=== PATIENT | male | born 1970 | race Caucasian/White ===

== ENCOUNTER 2023-03-27 05:11 | Emergency (ER) | payer OTHER ==
[2023-03-27 05:39] LABS: Absolute Lymphocytes (CBC) 1.2 K/uL (0.7-4.9); Lymphocytes % 20.1 % (15.3-44.8); MPV 8.4 fL (7.6-11.3); Platelets 104 thou/uL (152-406); RBC Red Blood Cell Count 4.61 M/uL (4.33-5.43)
[2023-03-27] MEDS ORDERED: NA CHLORIDE 0.9% 1,000 ML ONE (05:51)
[2023-03-27] MEDS ORDERED: NA CHLORIDE 0.9% 500 ML ONE (05:51)
[2023-03-27 06:05] LABS: Albumin 3.5 g/dL (3.4-5.0); Bilirubin Direct 0.3 mg/dL (0-0.2); Bilirubin Indirect, Calculated 0.6 mg/dL (0.2-0.8); Bilirubin Total 0.9 mg/dL (0.2-1.0); Potassium 3.7 mEq/L (3.5-5.1); Protein, Total 7.5 g/dL (6.4-8.2)
--- NOTE | 2023-03-27 06:15 | ER ---
Nurse's Notes [facility] Name: Howie Pedroza Age: 52 yrs Sex: Male : 1970 Arrival Date: 03/27/2023 Time: 05:11 Bed 6 Private MD: Diagnosis: Dyspnea;Pain in left lower leg;Phlebitis and thrombophlebitis of superficial vessels of left lower extremity Presentation: 03/27 05:23 Chief complaint: Patient states: SOB CONCERNED WITH PE UNDERGOING TREATMENT FOR DVT TO [facility] UPPER LEG. Coronavirus screen: Vaccine status: Patient reports receiving the 2nd dose of the covid vaccine. Ebola Screen: Patient negative for fever greater than or equal to 101.5 degrees Fahrenheit, and additional compatible Ebola Virus Disease symptoms. Initial Sepsis Screen: Does the patient meet any 2 criteria? No. Patient's initial sepsis screen is negative. Does the patient have a suspected source of infection? No. Patient's initial sepsis screen is negative. Risk Assessment: Do you want to hurt yourself or someone else? Patient reports no desire to harm self or others. Onset of symptoms was March 27, 2023 at 03:00. 05:23 Method Of Arrival: Ambulatory 05:23 Acuity: KIMBERLEY 3 kl Triage Assessment: 05:27 General: Appears in no apparent distress. Behavior is calm, cooperative. Pain: Denies kl pain. Respiratory: Reports shortness of breath on exertion Airway is patent Trachea midline Respiratory effort is even, unlabored, Onset: The symptoms/episode began/occurred this morning, the patient has mild shortness of breath. Historical: - Allergies: 05:26 Keflex; 05:26 Tramadol HCl; kl - PMHx: 05:26 HEPATITIS C; PVD; DVT; kl - PSHx: 05:26 None; kl - Immunization history:: Adult Immunizations not up to date. - Social history:: Smoking status: Patient denies any tobacco usage or history of. - Family history:: not pertinent. Screenin:37 [facility] ED Fall Risk Assessment (Adult) History of falling in the last 3 months, vc1 including since admission No falls in past 3 months (0 pts) Confusion or Disorientation No (0 pts) Intoxicated or Sedated No (0 pts) Impaired Gait Yes (1 pt) Mobility Assist Device Used No (0 pt) Altered Elimination No (0 pt) Score/Fall Risk Level 0 - 2 = Low Risk Oriented to surroundings, Maintained a safe environment, Educated pt \T\ family on fall prevention, incl call for assistance when getting out of bed. Abuse screen: Denies threats or abuse. Nutritional screening: No deficits noted. Tuberculosis screening: No symptoms or risk factors identified. Assessment: 07:55 Reassessment:. General: Appears in no apparent distress. comfortable, Behavior is calm, ld1 cooperative, appropriate for age. Pain: Denies pain. Neuro: Level of Consciousness is awake, alert, obeys commands, Oriented to person, place, time, situation. Cardiovascular: Capillary refill < 3 seconds Patient's skin is warm and dry. Rhythm is sinus rhythm. Respiratory: Airway is patent Respiratory effort is even, unlabored, Breath sounds are clear bilaterally. GI: Abdomen is flat, non-distended. : No signs and/or symptoms were reported regarding the genitourinary system. EENT: No signs and/or symptoms were reported regarding the EENT system. Derm: No signs and/or symptoms reported regarding the dermatologic system. Musculoskeletal: No signs and/or symptoms reported regarding the musculoskeletal system. Vital Signs: 05:23 BP 148 / 90; Pulse 70; Resp 20; Temp 97; Pulse Ox 97% on R/A; Weight 110.68 kg (R); Height 6 ft. 1 in. ; 06:36 BP 153 / 90; Pulse 100; Resp 13; Pulse Ox 100% ; vc1 07:55 BP 147 / 83; Pulse 96; Resp 18; Pulse Ox 100% on R/A; ld1 05:23 Body Mass Index 32.19 (110.68 kg, 185.42 cm) ED Course: 05:14 Patient arrived in ED. ag3 05:16 Arm band placed on right wrist. vc1 05:16 Patient has correct armband on for positive identification. Bed in low position. Call vc1 light in reach. Client placed on continuous cardiac and pulse oximetry monitoring. NIBP monitoring applied. 05:20 Raman Weems MD is Attending Physician. [facility] 05:26 Triage completed. 05:28 Layla Correa, RN is Primary Nurse. vc1 06:15 US Extremity Venous W Compression Grant In Process Unspecified. EDMS 06:25 CT Chest For PE Angio In Process Unspecified. EDMS 06:45 XRAY Chest (1 view) In Process Unspecified. EDMS 07:55 No provider procedures requiring assistance completed. IV discontinued, intact, ld1 bleeding controlled, No redness/swelling at site. Administered Medications: 05:45 Drug: NS 0.9% IV 500 ml Route: IV; Rate: bolus; Site: right antecubital; vc1 05:45 Drug: NS 0.9% IV 1000 ml Route: IV; Rate: 125 ml/hr; Site: right antecubital; vc1 06:36 Drug: Ibuprofen PO 400 mg Route: PO; vc1 06:47 Follow up: Response: No adverse reaction vc1 06:36 Drug: Trimethoprim-Sulfamethoxazole PO (160 mg-800 mg (DS) 1 tablet Route: PO; vc1 06:47 Follow up: Response: No adverse reaction vc1 Medication: 06:37 VIS not applicable for this client. vc1 Outcome: 06:15 Discharge ordered by MD. medina 07:55 Discharged to home ambulatory. ld1 07:55 Condition: stable 07:55 Discharge instructions given to patient, Instructed on discharge instructions, follow up and referral plans. medication usage, Demonstrated understanding of instructions, follow-up care, medications, Prescriptions given X 2. 07:56 Patient left the ED. ld1 Signatures: Dispatcher [employer] Bharati Seay RN RN kl Anderson, Corey, MD MD cha Gomez, Alice 3 Ellen Daniel RN RN ld1 Layla Correa RN RN vc1
--- NOTE | 2023-03-27 06:16 | EDPHYS ---
Physician Documentation [facility] Name: Howie Pedroza Age: 52 yrs Sex: Male : 1970 Arrival Date: 03/27/2023 Time: 05:11 Bed 6 Private MD: SHEKHAR Physician Raman Weems HPI: 03/27 05:24 This 52 yrs old Male presents to ER via Unassigned with complaints of carol Shortness Of Breath. 05:24 The patient has shortness of breath at rest, with light activity. Onset: The carol symptoms/episode began/occurred 1 day(s) ago. Duration: The symptoms are continuous, and are steadily getting worse. The patient's shortness of breath has no apparent modifying factors. Associated signs and symptoms: The patient has no apparent associated signs or symptoms. The patient has experienced similar episodes in the past. Historical: - Allergies: 05:26 Keflex; kl 05:26 Tramadol HCl; kl - PMHx: 05:26 HEPATITIS C; PVD; DVT; kl - PSHx: 05:26 None; kl - Immunization history:: Adult Immunizations not up to date. - Social history:: Smoking status: Patient denies any tobacco usage or history of. - Family history:: not pertinent. ROS: 05:24 Constitutional: Negative for fever, chills, and weight loss, Eyes: Negative for injury, carol pain, redness, and discharge, ENT: Negative for injury, pain, and discharge, Neck: Negative for injury, pain, and swelling, Cardiovascular: Negative for chest pain, palpitations, and edema, Respiratory: Negative for shortness of breath, cough, wheezing, and pleuritic chest pain, Abdomen/GI: Negative for abdominal pain, nausea, vomiting, diarrhea, and constipation, Back: Negative for injury and pain, : Negative for injury, bleeding, discharge, and swelling, Skin: Negative for injury, rash, and discoloration, Neuro: Negative for headache, weakness, numbness, tingling, and seizure, Psych: Negative for depression, anxiety, suicide ideation, homicidal ideation, and hallucinations, Allergy/Immunology: Negative for hives, rash, and allergies, Endocrine: Negative for neck swelling, polydipsia, polyuria, polyphagia, and marked weight changes, Hematologic/Lymphatic: Negative for swollen nodes, abnormal bleeding, and unusual bruising. 05:24 MS/extremity: Positive for pain, tenderness, of the left leg. Exam: 05:24 Constitutional: This is a well developed, well nourished patient who is awake, alert, carol and in no acute distress. Head/Face: Normocephalic, atraumatic. Eyes: Pupils equal round and reactive to light, extra-ocular motions intact. Lids and lashes normal. Conjunctiva and sclera are non-icteric and not injected. Cornea within normal limits. Periorbital areas with no swelling, redness, or edema. ENT: Nares patent. No nasal discharge, no septal abnormalities noted. Tympanic membranes are normal and external auditory canals are clear. Oropharynx with no redness, swelling, or masses, exudates, or evidence of obstruction, uvula midline. Mucous membranes moist. Neck: Trachea midline, no thyromegaly or masses palpated, and no cervical lymphadenopathy. Supple, full range of motion without nuchal rigidity, or vertebral point tenderness. No Meningismus. Chest/axilla: Normal chest wall appearance and motion. Nontender with no deformity. No lesions are appreciated. Cardiovascular: Regular rate and rhythm with a normal S1 and S2. No gallops, murmurs, or rubs. Normal PMI, no JVD. No pulse deficits. Respiratory: Lungs have equal breath sounds bilaterally, clear to auscultation and percussion. No rales, rhonchi or wheezes noted. No increased work of breathing, no retractions or nasal flaring. Abdomen/GI: Soft, non-tender, with normal bowel sounds. No distension or tympany. No guarding or rebound. No evidence of tenderness throughout. Back: No spinal tenderness. No costovertebral tenderness. Full range of motion. Male : Normal genitalia with no discharge or lesions. Skin: Warm, dry with normal turgor. Normal color with no rashes, no lesions, and no evidence of cellulitis. MS/ Extremity: Pulses equal, no cyanosis. Neurovascular intact. Full, normal range of motion. Neuro: Awake and alert, GCS 15, oriented to person, place, time, and situation. Cranial nerves II-XII grossly intact. Motor strength 5/5 in all extremities. Sensory grossly intact. Cerebellar exam normal. Normal gait. Psych: Awake, alert, with orientation to person, place and time. Behavior, mood, and affect are within normal limits. 06:02 ECG was reviewed by the Attending Physician. [facility] Vital Signs: 05:23 BP 148 / 90; Pulse 70; Resp 20; Temp 97; Pulse Ox 97% on R/A; Weight 110.68 kg (R); kl Height 6 ft. 1 in. ; 06:36 BP 153 / 90; Pulse 100; Resp 13; Pulse Ox 100% ; vc1 07:55 BP 147 / 83; Pulse 96; Resp 18; Pulse Ox 100% on R/A; ld1 05:23 Body Mass Index 32.19 (110.68 kg, 185.42 cm) kl MDM: 05:20 Patient medically screened. [facility] 05:25 Differential diagnosis: abrasion, tendonitis, CHF exacerbation, Chronic Obstructive carol Pulmonary Disease Myocardial Infarction pneumonia, pulmonary edema, Pulmonary Embolism reactive airway disease, Unstable Angina. Antibiotic administration: Not indicated. Immunization status: Influenza vaccine: within last 5 years. Data reviewed: vital signs, nurses notes, lab test result(s), EKG, radiologic studies, CT scan, doppler. Consideration of Admission/Observation Escalation of care including admission/observation considered. I considered the following discharge prescriptions or medication management in the emergency department Medications were administered in the Emergency Department. See MAR. Independent interpretation of the following test(s) in the Emergency Department EKG: See my EKG interpretation above. Test considered but Not performed: Ultrasound NO 2 D ECHO. 03/27 05:24 Order name: Basic Metabolic Panel; Complete Time: 06:16 carol 03/27 05:24 Order name: CBC with Diff; Complete Time: 06:16 carol 03/27 05:24 Order name: LFT's; Complete Time: 06:16 carol 03/27 05:24 Order name: Magnesium; Complete Time: 06:16 carol 03/27 05:24 Order name: NT PRO-BNP; Complete Time: 06:16 carol 03/27 05:24 Order name: Troponin HS; Complete Time: 06:16 carol 03/27 05:54 Order name: CREATININE WHOLE BLOOD; Complete Time: 06:16 EDMS 03/27 05:24 Order name: XRAY Chest (1 view); Complete Time: 07:16 carol 03/27 05:24 Order name: US Extremity Venous W Compression Grant carol 03/27 05:24 Order name: CT Chest For PE Angio; Complete Time: 07:33 [facility] 03/27 05:24 Order name: EKG; Complete Time: 05:24 [facility] 03/27 05:24 Order name: Cardiac monitoring; Complete Time: 05:45 [facility] 03/27 05:24 Order name: EKG - Nurse/Tech; Complete Time: 05:39 [facility] 03/27 05:24 Order name: IV Saline Lock; Complete Time: : [facility] 03/27 05:24 Order name: Labs collected and sent; Complete Time: [facility] 03/27 05:24 Order name: O2 Per Protocol; Complete Time: [facility] 03/27 05:24 Order name: O2 Sat Monitoring; Complete Time: [facility] EC:02 Rate is 91 beats/min. Rhythm is regular. QRS [place] is Normal. PA interval is normal. QRS carol interval is normal. QT interval is normal. No Q waves. T waves are Normal. No ST changes noted. Clinical impression: NSR w/ Non-specific ST/T Changes and No evidence of ischemia. Interpreted by me. Reviewed by me. Administered Medications: 05:45 Drug: NS 0.9% IV 500 ml Route: IV; Rate: bolus; Site: right antecubital; vc1 05:45 Drug: NS 0.9% IV 1000 ml Route: IV; Rate: 125 ml/hr; Site: right antecubital; vc1 06:36 Drug: Ibuprofen PO 400 mg Route: PO; vc1 06:47 Follow up: Response: No adverse reaction vc1 06:36 Drug: Trimethoprim-Sulfamethoxazole PO (160 mg-800 mg (DS) 1 tablet Route: PO; vc1 06:47 Follow up: Response: No adverse reaction vc1 Disposition Summary: 03/27/23 06:15 Discharge Ordered Location: Home carol Problem: new carol Symptoms: have improved carol Condition: Stable carol Diagnosis - Dyspnea carol - Pain in left lower leg carol - Phlebitis and thrombophlebitis of superficial vessels of left lower extremity carol Followup: carol - With: Private Physician - When: 2 - 3 days - Reason: Recheck today's complaints, Continuance of care, Re-evaluation by your physician Discharge Instructions: - Discharge Summary Sheet carol - Musculoskeletal Pain carol - Shortness of Breath, Adult, Ummu-ki-Prha carol - Thrombophlebitis carol Forms: - Medication Reconciliation Form carol - Thank You Letter carol - Antibiotic Education carol - Prescription Opioid Use carol - Patient Portal Instructions [facility] - Leadership Thank You Letter [facility] Prescriptions: - Motrin IB 200 mg Oral Tablet - take 1 tablet by ORAL route every 6 hours As needed as needed with food; 40 carol tablet; Refills: 0, Product Selection Permitted - Bactrim DS 800-160 mg Oral Tablet - take 1 tablet by ORAL route every 12 hours for 7 days; 14 tablet; Refills: 0, [facility] Product Selection Permitted Signatures: Dispatcher [employer] Bharati Seay, RN RN Raman Borrero MD MD cha Sims, Marcus, DO DO ms3 Layla Correa RN RN vc1
[2023-03-27] MEDS ORDERED: IBUPROFEN 400 MG TAB ONE (06:44)
[2023-03-27] MEDS ORDERED: SMZ./TMP. 800/160 MG TABLET ONE (06:44)
--- NOTE | 2023-03-27 07:10 | RAD REPORT ---
EXAM DESCRIPTION: Hong Single View03/27/2023 6:43 am CLINICAL HISTORY: Chest pain COMPARISON: 2014 FINDINGS: The lungs appear clear of acute infiltrate. The heart is normal size IMPRESSION: No acute abnormalities displayed
--- NOTE | 2023-03-27 07:20 | RAD REPORT ---
EXAM DESCRIPTION: CT - Chest For Pe Angio - 03/27/2023 6:24 am CLINICAL HISTORY: Shortness of breath COMPARISON: None. TECHNIQUE: Dynamically enhanced axial 3 mm thick images of the chest were obtained during administra tion of 75 mL Isovue 370 IV contrast. Coronal and oblique reconstruction images were generated and re viewed. Exam utilizes a protocol for optimal evaluation of pulmonary arterial tree. Maximum intensity projections 3D imaging was utilized All CT scans are performed using dose optimization technique as appropriate and may include automated exposure control or mA/KV adjustment according to patient size. FINDINGS: The suboptimal opacification pulmonary arteries. No gross central pulmonary embolus visual ized. A thoracic aortic aneurysm is not noted. A pleural effusion is not seen. A pericardial effusion is not seen. A lung consolidation is not present. Cirrhotic liver. Splenomegaly. Varices. Distended portal vein IMPRESSION: No gross central pulmonary embolus Cirrhosis
[2023-03-27 08:38] VITALS: TEMP 97
[2023-03-27 08:39] VITALS: O2SAT 100
[2023-03-27 08:40] VITALS: BP 147/83
--- NOTE | 2023-03-27 16:27 | EKG ---
Test Date: 2023-03-27 Test Time: 05:37:37 School Librarian: MAXINE MEASUREMENT RESULTS: Intervals: Rate: 91 FL: 164 QRSD: 98 QT: 360 QTc: 442 [place]: P: 70 FL: 164 QRS: 28 T: 63 INTERPRETIVE STATEMENTS: Sinus rhythm with premature atrial complexes Minimal voltage criteria for LVH, may be normal variant Borderline ECG Compared to ECG 05/17/2015 21:45:42 Atrial premature complex(es) now present Sinus tachycardia no longer present T-wave abnormality no longer present Possible ischemia no longer present Electronically Signed On 03-27-23 16:25:23 CDT by Deonte Drew
--- NOTE | 2023-03-27 16:53 | RAD REPORT ---
EXAM DESCRIPTION: US - Extrem Venous W Compress Grant - 03/27/2023 6:13 am FINDINGS: Pain, Swelling COMPARISON: US left leg vein 02/26/2023 report without images TECHNIQUE: Grayscale, color Doppler, duplex Doppler, spectral Doppler images and analysis with compr ession and augmentation of right and left lower extremity veins. FINDINGS: Right and Left common femoral, greater saphenous, femoral, deep (profunda) femoral, poplit eal, posterior tibial veins unremarkable without evidence of clot. Superficial vein thrombosis in what technologist names as a distal left thigh superficial vein and le ft calf area. IMPRESSION: 1. No sonographic evidence of right or left lower extremity DVT. 2. Superficial vein thrombosis in a distal left thigh superficial vein and left calf area. Electronically signed by: Mykel Olson MD 03/27/2023 6:48 AM CDT Due to temporary technical issues with the PACS/Fluency reporting system, reports are being signed b y the in house radiologists without review as a courtesy to insure prompt reporting. The interpreting radiologist is fully responsible for the content of the report.
== END 2023-03-27 07:56 | disposition home or self-care (01) ==
LOC: ER 05:11
DX: R06.00 Dyspnea, unspecified (principal); I80.02 Phlebitis and thrombophlebitis of superficial vessels of left lower extremity; M79.662 Pain in left lower leg; Z88.1 Allergy status to other antibiotic agents; Z88.5 Allergy status to narcotic agent
CPT/HCPCS: 93005; 85025; 80048; 36415; 83735; 82565; 80076; 84484; 83880; 71275; 71045; 93970; 99284; Q9967; J7040; J7030

== ENCOUNTER 2023-06-10 20:48 | Emergency (ER) | payer OTHER ==
[2023-06-10] MEDS ORDERED: MORPHINE 4 MG/ML SYR ONE (21:55)
[2023-06-10] MEDS ORDERED: ONDANSETRON 4 MG (ODT) TAB ONE (21:56)
--- NOTE | 2023-06-10 22:37 | RAD REPORT ---
EXAM DESCRIPTION: USExtrem Venous W Compress Bil06/10/2023 10:07 pm CLINICAL HISTORY: Leg pain COMPARISON: February 2023 FINDINGS: The common femoral, superficial femoral,popliteal and posterior tibial veins bilaterally a re compressible and demonstrate augmentation. Right greater saphenous vein patent Doppler demonstrates good flow. Echogenic material consistent with late subacute thrombus is present within the mid and distal left g reater saphenous vein Grayscale, color and spectral analysis performed on all vessels IMPRESSION: No evidence of deep venous thrombosis involving either lower extremity. Late subacute thrombus mid and distal left greater saphenous vein
--- NOTE | 2023-06-10 22:52 | ER ---
Nurse's Notes [facility] Name: Howie Pedroza Age: 53 yrs Sex: Male : 1970 Arrival Date: 06/10/2023 Time: 20:48 Bed 13 Private MD: Diagnosis: subacute thrombus mid and distal left greater saphenous vein Presentation: 06/10 21:22 Chief complaint: Patient states: increase in pain and swelling to left lower extremity kl pt reports has numerous clots in left leg was scheduled for procedure to remove stopped Eliquis x 2 days prior reports pain is not being relieved with Tylenol 3 has appt with pain management on 06/13. Coronavirus screen: Vaccine status: Patient reports receiving the 2nd dose of the covid vaccine. Ebola Screen: Patient negative for fever greater than or equal to 101.5 degrees Fahrenheit, and additional compatible Ebola Virus Disease symptoms. Initial Sepsis Screen: Does the patient meet any 2 criteria? No. Patient's initial sepsis screen is negative. Does the patient have a suspected source of infection? No. Patient's initial sepsis screen is negative. Risk Assessment: Do you want to hurt yourself or someone else? Patient reports no desire to harm self or others. Onset of symptoms was June 10, 2023. 21:22 Method Of Arrival: Ambulatory kl 21:22 Acuity: KIMBERLEY 3 kl Triage Assessment: 21:27 General: Appears uncomfortable, Behavior is cooperative. Pain: Complains of pain in kl left leg Pain currently is 10 out of 10 on a pain scale. Musculoskeletal: Circulation, motion, and sensation intact. Capillary refill < 3 seconds, Swelling present in left leg. Historical: - Allergies: 21:25 Keflex; kl 21:25 Tramadol HCl; kl 21:25 Bactrim; kl - Home Meds: 21:25 Lasix Oral [Active]; propranolol-hydrochlorothiazide oral [Active]; Lactulose Oral kl [Active]; Potassium Chloride Oral [Active]; Tylenol #3 Oral [Active]; - PMHx: 21:25 DVT; Hepatitis C; PVD; liver cirrhosis (PVD); kl - Immunization history:: Adult Immunizations up to date. - Social history:: Smoking status: Patient/guardian denies using tobacco, but has a distant history of tobacco abuse. Screenin:02 [facility] ED Fall Risk Assessment (Adult) History of falling in the last 3 months, kl including since admission No falls in past 3 months (0 pts) Confusion or Disorientation No (0 pts) Intoxicated or Sedated No (0 pts) Impaired Gait No (0 pts) Mobility Assist Device Used No (0 pt) Altered Elimination No (0 pt) Score/Fall Risk Level 0 - 2 = Low Risk Oriented to surroundings, Maintained a safe environment. Abuse screen: Denies threats or abuse. Nutritional screening: No deficits noted. Tuberculosis screening: No symptoms or risk factors identified. Assessment: 23:02 Reassessment: Patient appears in no apparent distress at this time. Patient is alert, kl oriented x 3, equal unlabored respirations, skin warm/dry/pink. Patient states feeling better. Patient states symptoms have improved. Vital Signs: 21:22 BP 140 / 73; Pulse 76; Resp 20; Temp 98.3(O); Pulse Ox 100% on R/A; Weight 113.85 kg kl (R); Height 6 ft. 1 in. ; Pain 10/10; 23:02 BP 138 / 67; Pulse 71; Resp 18; Pulse Ox 97% ; kl 21:22 Body Mass Index 33.12 (113.85 kg, 185.42 cm) kl 21:22 Pain Scale: Adult ED Course: 20:51 Patient arrived in ED. jj6 20:55 Cecile Pugh PA-C is PHCP. sb4 20:55 Mallory Hernandez MD is Attending Physician. sb4 21:25 Triage completed. kl 22:09 Extrem Venous W Compression Grant US In Process Unspecified. EDMS 23:03 Patient has correct armband on for positive identification. Call light in reach. kl 23:03 No provider procedures requiring assistance completed. Patient did not have IV access kl during this emergency room visit. Administered Medications: 21:46 Drug: morphine IM 4 mg IM once Route: IM; Site: right deltoid; kl 23:02 Follow up: Response: Marked relief of symptoms kl 21:46 Drug: Ondansetron Oral Disintegrating Tablet Oral Disintegrating Tablet 4 mg PO once kl Route: PO; 23:02 Follow up: Response: Marked relief of symptoms kl Outcome: 22:52 Discharge ordered by . sb4 23:03 Discharged to home via ambulance, kl 23:03 Condition: improved 23:03 Discharge instructions given to patient, Instructed on discharge instructions, follow up and referral plans. Demonstrated understanding of instructions, follow-up care, 23:03 Patient left the ED. kl Signatures: Dispatcher [employer] Bharati Seay RN RN kl Jeffries, Jennifer jj6 Brown, Sophia, PA-C PACruz sb4
--- NOTE | 2023-06-10 22:52 | EDPHYS ---
Physician Documentation [facility] Name: Howie Pedroza Age: 53 yrs Sex: Male : 1970 Arrival Date: 06/10/2023 Time: 20:48 Bed 13 Private MD: ED Physician Mallory Hernandez HPI: 06/10 21:31 This 53 yrs old Male presents to ER via Ambulatory with complaints of Swelling of Lower sb4 Extremity. 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 He is on daily sb4 Eliquis, however he stopped his Eliquis 2 days ago because he was post to have an EGD tomorrow. He states that over the weekend, he has had increasing pain in his left leg. He is prescribed Tylenol with codeine that has not been controlling the pain adequately. He denies any chest pain or shortness of breath. Historical: - Allergies: 21:25 Keflex; kl 21:25 Tramadol HCl; kl 21:25 Bactrim; kl - Home Meds: 21:25 Lasix Oral [Active]; propranolol-hydrochlorothiazide oral [Active]; Lactulose Oral kl [Active]; Potassium Chloride Oral [Active]; Tylenol #3 Oral [Active]; - PMHx: 21:25 DVT; Hepatitis C; PVD; liver cirrhosis (PVD); kl - Immunization history:: Adult Immunizations up to date. - Social history:: Smoking status: Patient/guardian denies using tobacco, but has a distant history of tobacco abuse. ROS: 21:34 Constitutional: Negative for fever, chills, and weight loss, sb4 21:34 MS/extremity: Positive for pain, tenderness, of the left leg, 21:34 All other systems are negative, Exam: 21:34 Constitutional: This is a well developed, well nourished patient who is awake, alert, sb4 and in no acute distress. Head/Face: Normocephalic, atraumatic. Eyes: Extra-ocular motions intact. Periorbital areas with no swelling, redness, or edema. ENT: Mucous membranes moist. Cardiovascular: Regular rate and rhythm with a normal S1 and S2. Respiratory: Lungs have equal breath sounds bilaterally, clear to auscultation and percussion. No rales, rhonchi or wheezes noted. No increased work of breathing, no retractions or nasal flaring. Abdomen/GI: Soft, non-tender, no distension. MS/ Extremity: Pulses equal, no cyanosis. Neurovascular intact. Full, normal range of motion. Neuro: Awake and alert, GCS 15, oriented to person, place, time, and situation. Motor strength 5/5 in all extremities. Sensory grossly intact. 21:34 Skin: swelling bilateral lower extremities, bruising noted to left upper medial thigh. Vital Signs: 21:22 BP 140 / 73; Pulse 76; Resp 20; Temp 98.3(O); Pulse Ox 100% on R/A; Weight 113.85 kg kl (R); Height 6 ft. 1 in. ; Pain 10/10; 23:02 BP 138 / 67; Pulse 71; Resp 18; Pulse Ox 97% ; kl 21:22 Body Mass Index 33.12 (113.85 kg, 185.42 cm) kl 21:22 Pain Scale: Adult kl MDM: 21:08 Patient medically screened. sb4 21:34 Differential diagnosis: DVT, thrombophlebitis, contusion, hematoma. sb4 22:50 Data reviewed: vital signs, nurses notes, radiologic studies, I have discussed the sb4 patient's presentation/case with the attending Emergency Department Physician; and as a result, I will discharge patient. Care significantly affected by the following chronic conditions: Liver Disease. Counseling: I had a detailed discussion with the patient and/or guardian regarding the historical points, exam findings, and any diagnostic results supporting the discharge/admit diagnosis, radiology results, to return to the emergency department if symptoms worsen or persist or if there are any questions or concerns that arise at home. 22:52 ED course: Ultrasound today consistent with prior ultrasounds, no DVT noted. Instructed sb4 patient to restart his Eliquis and discussed all findings with his GI and vascular specialist. Patient understands. Return precautions given. 06/10 21:30 Order name: Extrem Venous W Compression Grant US; Complete Time: 22:39 sb4 Administered Medications: 21:46 Drug: morphine IM 4 mg IM once Route: IM; Site: right deltoid; kl 23:02 Follow up: Response: Marked relief of symptoms 21:46 Drug: Ondansetron Oral Disintegrating Tablet Oral Disintegrating Tablet 4 mg PO once kl Route: PO; 23:02 Follow up: Response: Marked relief of symptoms kl Disposition Summary: 06/10/23 22:52 Discharge Ordered Notes: Location: Home sb4 Problem: new sb4 Symptoms: have improved sb4 Condition: Stable sb4 Diagnosis - subacute thrombus mid and distal left greater saphenous vein sb4 Followup: sb4 - With: Emergency Department - When: As needed - Reason: Trouble breathing, Worsening of condition Discharge Instructions: - Discharge Summary Sheet sb4 - Deep Vein Thrombosis sb4 Forms: - Medication Reconciliation Form sb4 - Thank You Letter sb4 - Antibiotic Education sb4 - Prescription Opioid Use sb4 - Patient Portal Instructions sb4 - Leadership Thank You Letter sb4 Signatures: Dispatcher [employer] Bharati Seay RN RN Cecile Tracy PA-C PA-C sb4
[2023-06-10 23:10] VITALS: TEMP 98.3
[2023-06-10 23:11] VITALS: BP 138/67; O2SAT 97
== END 2023-06-10 23:03 | disposition home or self-care (01) ==
LOC: ER 20:48
DX: I82.812 Embolism and thrombosis of superficial veins of left lower extremity (principal); Z86.718 Personal history of other venous thrombosis and embolism; Z79.01 Long term (current) use of anticoagulants; Z88.1 Allergy status to other antibiotic agents; Z88.5 Allergy status to narcotic agent
CPT/HCPCS: 93970; 96372; 99284; Q0162

== ENCOUNTER 2023-07-05 22:14 | Emergency (ER) | payer OTHER ==
[2023-07-05] MEDS ORDERED: MORPHINE 4 MG/ML SYR ONE (23:40)
[2023-07-06] LABS: Protime INR 1.56
[2023-07-06 00:02] LABS: Absolute Lymphocytes (CBC) 1.2 K/uL (0.7-4.9); Hematocrit 38.3 % (39.6-49.0); Lymphocytes % 23.4 % (15.3-44.8); MCV 94.1 fL (80-100); MPV 8.1 fL (7.6-11.3); Platelets 118 thou/uL (152-406); RBC Red Blood Cell Count 4.07 M/uL (4.33-5.43)
[2023-07-06 00:20] LABS: Magnesium 2.2 mg/dL (1.6-2.4); Potassium 4.2 mEq/L (3.5-5.1)
--- NOTE | 2023-07-06 01:36 | ER ---
Nurse's Notes [facility] Name: Howie Pedroza Age: 53 yrs Sex: Male : 1970 Arrival Date: 07/05/2023 Time: 22:14 Bed 7 Private MD: Diagnosis: Embolism and thrombosis of superficial veins of left lower extremities Presentation: 07/05 22:20 Chief complaint: Patient states: "I have a blood clot in my left leg and it hasn't got as6 away. It's getting worse" pt reports having this clot for 6 months. Coronavirus screen: At this time, the client does not indicate any symptoms associated with coronavirus-19. Ebola Screen: No symptoms or risks identified at this time. Initial Sepsis Screen: Does the patient meet any 2 criteria? No. Patient's initial sepsis screen is negative. Does the patient have a suspected source of infection? No. Patient's initial sepsis screen is negative. Risk Assessment: Do you want to hurt yourself or someone else? Patient reports no desire to harm self or others. Onset of symptoms was July 05, 2023. 22:20 Method Of Arrival: Ambulatory as6 22:20 Acuity: KIMBERLEY 3 as6 Historical: - Allergies: 22:23 Bactrim; as6 22:23 Keflex; as6 22:23 Tramadol HCl; as6 - PMHx: 22:23 DVT; Hepatitis C; Liver cirrhosis (PVD); PVD; as6 - PSHx: 22:23 back; as6 - Immunization history:: Adult Immunizations not up to date. - Social history:: Smoking status: Patient denies any tobacco usage or history of. Screenin/08 00:44 [facility] ED Fall Risk Assessment (Adult) History of falling in the last 3 months, rv including since admission No falls in past 3 months (0 pts) Score/Fall Risk Level 0 - 2 = Low Risk Oriented to surroundings, Maintained a safe environment, Educated pt \\T\\ family on fall prevention, incl call for assistance when getting out of bed. Abuse screen: Denies threats or abuse. Denies injuries from another. Nutritional screening: No deficits noted. Tuberculosis screening: No symptoms or risk factors identified. Assessment: 07/05 23:30 General: Appears in no apparent distress. Behavior is calm, cooperative. rv 23:30 Pain: Complains of pain in right leg and left leg. Neuro: Level of Consciousness is rv awake, alert, obeys commands, Oriented to person, place, time, situation. Cardiovascular: Capillary refill < 3 seconds Patient's skin is warm and dry. Respiratory: Airway is patent. GI: No signs and/or symptoms were reported involving the gastrointestinal system. : No signs and/or symptoms were reported regarding the genitourinary system. Musculoskeletal: Circulation, motion, and sensation intact. Range of motion: intact in all extremities. 07/06 01:21 Reassessment: No changes from previously documented assessment. Patient and/or family vc1 updated on plan of care and expected duration. Pain level reassessed. Patient is alert, oriented x 3, equal unlabored respirations, skin warm/dry/pink. Vital Signs: 07/05 22:20 BP 160 / 83; Pulse 76; Resp 20 S; Temp 98.7(TE); Pulse Ox 98% on R/A; Weight 115.67 kg as6 (R); Height 6 ft. 1 in. (R); Pain 10/10; 07/06 00:41 BP 137 / 72; Pulse 70; Resp 17; Pulse Ox 99% ; rv 01:21 BP 141 / 69; Pulse 73; Resp 15; Pulse Ox 100% ; vc1 01:51 BP 135 / 73; Pulse 69; Resp 16; Temp 98; Pulse Ox 99% ; rv 07/05 22:20 Body Mass Index 33.64 (115.67 kg, 185.42 cm) as6 07/05 22:20 Pain Scale: Adult as6 [place] Coma Score: 00:41 Eye Response: spontaneous(4). Motor Response: obeys commands(6). Verbal Response: rv oriented(5). Total: 15. 01:52 Eye Response: spontaneous(4). Motor Response: obeys commands(6). Verbal Response: rv oriented(5). Total: 15. ED Course: 07/05 22:19 Patient arrived in ED. jj6 22:23 Triage completed. as6 22:24 Arm band placed on. as6 22:32 Raman Hawley PA is PHCP. cp 22:32 Raman Weems MD is Attending Physician. cp 22:52 Layla Correa RN is Primary Nurse. vc1 22:58 XRAY Chest (1 view) In Process Unspecified. EDMS 23:22 Inserted saline lock: 20 gauge in right forearm, using aseptic technique. Blood rv collected. 12 00:15 US Extremity Venous W Compression Grant In Process Unspecified. EDMS 00:44 Patient has correct armband on for positive identification. Client placed on continuous rv cardiac and pulse oximetry monitoring. NIBP monitoring applied. quality assurance monitor chassis on. 00:44 No provider procedures requiring assistance completed. rv 01:52 IV discontinued, intact, bleeding controlled, No redness/swelling at site. Pressure rv dressing applied. Administered Medications: 07/05 23:32 Drug: morphine IVP or IV 4 mg IVP once over 4 mins Route: IVP; Infused Over: 4 mins; rv Site: right forearm; 07/06 01:51 Follow up: Response: No adverse reaction rv 01:51 Not Given (Duplicate Order): hydrocodone-[id number] mg-325 mg 1 tabs PO once rv 01:51 Drug: HYDROcodone-acetaminophen PO 5 mg-325 mg 2 tabs PO once Route: PO; rv 01:51 Follow up: Response: Medication administered at discharge. rv Medication: 00:44 VIS not applicable for this client. rv Outcome: 01:35 Discharge ordered by MD. cp 01:52 Discharged to home ambulatory, with family, rv 01:52 Condition: good 01:52 Discharge instructions given to patient, Instructed on discharge instructions, follow up and referral plans. medication usage, Demonstrated understanding of instructions, follow-up care, medications, Prescriptions given X 1, 01:52 Patient left the ED. rv Signatures: Dispatcher [employer] EDMS Raman Hawley PA PA cp Vicente, Ronaldo, RN RN rv Shi Portillo Ashby, RN RN as6 Layla Correa RN RN vc1 Corrections: (The following items were deleted from the chart) 00:40 00:39 General: Appears rv rv
--- NOTE | 2023-07-06 01:36 | EDPHYS ---
Physician Documentation [facility] Name: Howie Pedroza Age: 53 yrs Sex: Male : 1970 Arrival Date: 07/05/2023 Time: 22:14 Bed 7 Private MD: ED Physician Raman Weems HPI: 07/05 23:00 This 53 yrs old Male presents to ER via Ambulatory with complaints of Leg Pain. cp 23:00 The patient presents with pain, that is chronic. The complaints affect the medial cp aspect of left thigh. Context: Patient reports history of chronic blood clot to left leg. Associated signs and symptoms: Pertinent negatives calf tenderness, fever, warmth. Treatment prior to arrival includes: no previous treatment. Severity of symptoms: in the emergency department the symptoms are unchanged, despite home interventions. 23:00 Onset: The symptoms/episode began/occurred 6 month(s) ago. cp Historical: - Allergies: 22:23 Bactrim; as6 22:23 Keflex; as6 22:23 Tramadol HCl; as6 - PMHx: 22:23 DVT; Hepatitis C; Liver cirrhosis (PVD); PVD; as6 - PSHx: 22:23 back; as6 - Immunization history:: Adult Immunizations not up to date. - Social history:: Smoking status: Patient denies any tobacco usage or history of. ROS: 23:05 MS/extremity: Positive for pain, of the medial aspect of left thigh, Negative for cp injury or acute deformity, decreased range of motion, paresthesias, 23:05 Eyes: Negative for injury, pain, redness, and discharge, cp 23:05 Constitutional: Negative for body aches, chills, fever, poor PO intake, 23:05 Cardiovascular: Negative for chest pain, edema, palpitations, 23:05 Respiratory: Negative for cough, shortness of breath, wheezing, 23:05 Abdomen/GI: Negative for abdominal pain, nausea, vomiting, and diarrhea, 23:05 Neuro: Negative for altered mental status, dizziness, headache, weakness, 23:05 All other systems are negative, Exam: 23:10 Constitutional: The patient appears in no acute distress, alert, awake, cp non-diaphoretic, non-toxic, well developed, well nourished, 23:10 Head/Face: Normocephalic, atraumatic. cp 23:10 Eyes: Periorbital structures: appear normal, Conjunctiva: normal, no exudate, no injection, Sclera: no appreciated abnormality, Lids and lashes: appear normal, bilaterally, 23:10 ENT: External ear(s): are unremarkable, Nose: is normal, Mouth: Lips: moist, Oral mucosa: pink and intact, moist, Posterior pharynx: is normal, airway is patent, no erythema, 23:10 Chest/axilla: Inspection: normal, 23:10 Cardiovascular: Rate: normal, Rhythm: regular, Edema: is not appreciated, JVD: is not appreciated, 23:10 Respiratory: the patient does not display signs of respiratory distress, Respirations: normal, no use of accessory muscles, no retractions, labored breathing, is not present, Breath sounds: are clear throughout, no decreased breath sounds, no stridor, no wheezing, 23:10 Abdomen/GI: Inspection: abdomen appears normal, Palpation: abdomen is soft and non-tender, in all quadrants, 23:10 Back: pain, is absent, ROM is normal, 23:10 Musculoskeletal/extremity: Extremities: grossly normal except: noted in the medial aspect of left thigh: pain, tenderness, 23:10 Skin: cellulitis, is not appreciated, no rash present. 23:10 Neuro: Motor: moves all fours, strength is normal, Sensation: no obvious gross deficits, 23:25 ECG was reviewed by the Attending Physician. cp Vital Signs: 22:20 BP 160 / 83; Pulse 76; Resp 20 S; Temp 98.7(TE); Pulse Ox 98% on R/A; Weight 115.67 kg as6 (R); Height 6 ft. 1 in. (R); Pain 05/08; 1208 00:41 BP 137 / 72; Pulse 70; Resp 17; Pulse Ox 99% ; rv 01:21 BP 141 / 69; Pulse 73; Resp 15; Pulse Ox 100% ; vc1 01:51 BP 135 / 73; Pulse 69; Resp 16; Temp 98; Pulse Ox 99% ; rv 12/07 22:20 Body Mass Index 33.64 (115.67 kg, 185.42 cm) as6 12 22:20 Pain Scale: Adult as6 [place] Coma Score: 00:41 Eye Response: spontaneous(4). Motor Response: obeys commands(6). Verbal Response: rv oriented(5). Total: 15. 01:52 Eye Response: spontaneous(4). Motor Response: obeys commands(6). Verbal Response: rv oriented(5). Total: 15. MDM: 12 22:33 Patient medically screened. 07/06 01:35 Data reviewed: vital signs, nurses notes, lab test result(s), EKG, radiologic studies, cp plain films, ultrasound. 01:35 Differential diagnosis: cellulitis, abscess. I considered the following discharge cp prescriptions or medication management in the emergency department Medications were administered in the Emergency Department. See MAR. Independent interpretation of the following test(s) in the Emergency Department EKG: See my EKG interpretation above. Counseling: I had a detailed discussion with the patient and/or guardian regarding the historical points, exam findings, and any diagnostic results supporting the discharge/admit diagnosis, lab results, radiology results, the need for outpatient follow up, a family practitioner. Response to treatment: the patient's symptoms have markedly improved after treatment, and as a result, I will discharge patient. 07/05 22:47 Order name: Basic Metabolic Panel; Complete Time: 01:08 07/06 01:08 Interpretation: Normal except: CL 110; BUN 19. 07/05 22:47 Order name: CBC with Diff; Complete Time: 01:08 07/06 01:08 Interpretation: Normal except: RBC 4.07; HGB 13.0; HCT 38.3; PLT 118; EOSINOPHIL % 7.6. 07/05 22:47 Order name: Magnesium; Complete Time: 01:08 07/05 22:47 Order name: PT-INR; Complete Time: 01:08 cp 07/06 01:08 Interpretation: Reviewed. 07/05 22:47 Order name: Troponin HS; Complete Time: 01:08 07/05 22:47 Order name: XRAY Chest (1 view) 07/05 23:35 Order name: US Extremity Venous W Compression Grant 07/05 22:47 Order name: EKG; Complete Time: 22:48 07/05 22:47 Order name: Cardiac monitoring; Complete Time: 23:21 07/05 22:47 Order name: EKG - Nurse/Tech; Complete Time: 23:21 07/05 22:47 Order name: IV Saline Lock; Complete Time: 23:21 cp 07/05 22:47 Order name: Labs collected and sent; Complete Time: 23:21 cp 07/05 22:47 Order name: O2 Per Protocol; Complete Time: 23:21 cp 07/05 22:47 Order name: O2 Sat Monitoring; Complete Time: 23:21 cp EC/07 23:25 Rate is 70 beats/min. Rhythm is regular. AL interval is normal. QRS interval is cp prolonged at 106 msec. QT interval is normal. T waves are Inverted in lead aVR. Interpreted by me. Reviewed by me. Administered Medications: 23:32 Drug: morphine IVP or IV 4 mg IVP once over 4 mins Route: IVP; Infused Over: 4 mins; rv Site: right forearm; 07/06 01:51 Follow up: Response: No adverse reaction rv 01:51 Not Given (Duplicate Order): hydrocodone-onbfsmjqprxbi77 mg-325 mg 1 tabs PO once rv 01:51 Drug: HYDROcodone-acetaminophen PO 5 mg-325 mg 2 tabs PO once Route: PO; rv 01:51 Follow up: Response: Medication administered at discharge. rv Disposition Summary: 07/06/23 01:35 Discharge Ordered Notes: Location: Home cp Problem: an ongoing problem cp Symptoms: have improved cp Condition: Stable cp Diagnosis - Embolism and thrombosis of superficial veins of left lower extremities cp Followup: cp - With: Private Physician - When: 2 - 3 days - Reason: Recheck today's complaints Discharge Instructions: - Discharge Summary Sheet cp - Venous Thromboembolism Prevention cp Forms: - Medication Reconciliation Form cp - Thank You Letter cp - Antibiotic Education cp - Prescription Opioid Use cp - Patient Portal Instructions cp - Leadership Thank You Letter cp Prescriptions: - acetaminophen-codeine 300-30 mg Oral tablet - take 2 tablet ORAL route every 8 hours; 14 tablet; Refills: 0, Product cp Selection Permitted Signatures: Dispatcher [employer] Raman Shah PA PA cp Blake Nelson, RN RN rv Paul Cohn RN RN as6
[2023-07-06] MEDS ORDERED: HYDROCODONE/APAP 5/325 MG TAB ONE (01:54)
[2023-07-06 02:02] VITALS: BP 135/73; TEMP 98; O2SAT 99
--- NOTE | 2023-07-06 20:31 | RAD REPORT ---
EXAM DESCRIPTION: RAD - Chest Single View - 07/05/2023 10:57 pm CLINICAL HISTORY: leg swelling TECHNIQUE: Single view chest COMPARISON: None FINDINGS: The heart appears unremarkable. The lungs are clear there is no alveolar consolidation, ef fusion or pneumothorax. There are no acute bony or soft tissue abnormalities. IMPRESSION: No acute cardiopulmonary process. Electronically signed by: Venancio Marinelli MD 07/05/2023 11:11 PM MARINE RESOURCE ECONOMIST Due to temporary technical issues with the PACS/Fluency reporting system, reports are being signed by the in house radiologists without review as a courtesy to insure prompt reporting. The interpreting radiologist is fully responsible for the content of the report.
--- NOTE | 2023-07-06 20:56 | RAD REPORT ---
EXAM DESCRIPTION: US - Extrem Venous W Compress Grant - 07/06/2023 12:13 am CLINICAL HISTORY: The patient is 53 years old and is Male; PAIN Bed Name: 7 TECHNIQUE: Real-time duplex ultrasound scan of the bilateral lower extremity veins integrating B-mod e two-dimensional vascular structure, Doppler spectral analysis, color flow Doppler imaging and compr ession. COMPARISON: 03/27/2023 bilateral lower extremity venous ultrasound FINDINGS: RIGHT DEEP VEINS: Unremarkable. No DVT in the right common femoral, femoral, proximal deep femoral or popliteal veins. The veins demonstrate normal color flow, are normally compressible , with normal phasic flow and/or augmentation response. RIGHT SUPERFICIAL VEINS: Unremarkable. No thrombus in the visualized right great saphenous vein. LEFT DEEP VEINS: Unremarkable. No DVT in the left common femoral, femoral, proximal deep femoral or popliteal veins. The veins demonstrate normal color flow, are normally compressible, with normal phasic flow and/or augmentation response. LEFT SUPERFICIAL VEINS: Superficial venous thrombus noted in the left greater saphenous vein about the level of the calf, which appears unchanged from prior exam. IMPRESSION: Superficial venous thrombus noted in the left greater saphenous vein about the level of the calf, which appears unchanged from prior exam. No new venous thrombus or deep venous thrombosis identified in either lower extremity. Electronically signed by: Fabiano Krueger MD 07/06/2023 12:32 AM STAFF COMBAT INFORMATION CENTER OFFICER Due to temporary technical issues with the PACS/Fluency reporting system, reports are being signed by the in house radiologists without review as a courtesy to insure prompt reporting. The interpreting radiologist is fully responsible for the content of the report.
--- NOTE | 2023-07-10 14:00 | EKG ---
Test Date: 2023-07-05 Test Time: 23:18:11 Casing Crew: KAUSHIK MEASUREMENT RESULTS: Intervals: Rate: 70 IA: 174 QRSD: 106 QT: 432 QTc: 466 Wana: P: 46 IA: 174 QRS: 81 T: 37 INTERPRETIVE STATEMENTS: Normal sinus rhythm Normal ECG Compared to ECG 03/27/2023 05:37:37 Atrial premature complex(es) no longer present Left ventricular hypertrophy no longer present Electronically Signed On 07-10-23 13:44:29 MARKETING STRATEGIST by Deonte Drew
== END 2023-07-06 01:52 | disposition home or self-care (01) ==
LOC: ER 22:14
DX: I82.812 Embolism and thrombosis of superficial veins of left lower extremity (principal); Z86.718 Personal history of other venous thrombosis and embolism; Z88.1 Allergy status to other antibiotic agents; Z88.5 Allergy status to narcotic agent
CPT/HCPCS: 36415; 71045; 80048; 83735; 84484; 85025; 85610; 93005; 93970; 96374; 99285

== ENCOUNTER → 2023-10-22 | Emergency (ER) | payer OTHER ==
--- NOTE | 2023-10-22 11:16 | RAD REPORT ---
EXAM DESCRIPTION: US - Extrem Venous W Compress Grant - 10/22/2023 11:05 am CLINICAL HISTORY: PAIN Bilateral leg edema and swelling. COMPARISON: Extrem Venous W Compress Grant dated 07/05/2023 TECHNIQUE: Real-time sonographic interrogation of the left and right lower extremity deep venous sys tems was performed. FINDINGS: Normal compressibility, flow augmentation, phasic flow and spontaneous flow is identified in both the left and right lower extremity deep venous systems. Distal greater saphenous vein on the left shows a small area of thrombus. Varicose veins are noted at the site of right thigh redness. IMPRESSION: No sonographic evidence of left or right lower extremity deep venous thrombosis.
--- NOTE | 2023-10-22 12:32 | EDPHYS ---
Physician Documentation [facility] Name: Howie Pedroza Age: 53 yrs Sex: Male : 1970 Arrival Date: 10/22/2023 Time: 10:29 Bed 20 Private MD: ED Physician Zen Daniel HPI: 10/21 11:24 This 53 yrs old Male presents to ER via Ambulatory with complaints of Leg Pain. kb 11:24 Patient is a 53-year-old male who presents for pain redness and swelling to right kb medial thigh that started yesterday. Patient is concerned for a blood clot because he has a history of clots in the left leg. States he had a mild cough with fever 2 days ago as well.. Historical: - Allergies: 10:38 Bactrim; mb9 10:38 Keflex; mb9 10:38 Tramadol HCl; mb9 - PMHx: 10:38 DVT; PVD; Liver cirrhosis (PVD); Hepatitis C; mb9 - PSHx: 10:38 back; mb9 - Immunization history:: Adult Immunizations up to date. - Social history:: Smoking status: Patient denies any tobacco usage or history of. ROS: 11:19 Constitutional: As per HPI kb Exam: 11:19 Constitutional: This is a well developed, well nourished patient who is awake, alert, kb and in no acute distress. Head/Face: Normocephalic, atraumatic. ENT: Moist Mucous membranes Cardiovascular: Regular rate Respiratory: Respirations even and unlabored. No increased work of breathing. Talking in full sentences Abdomen/GI: Soft, non-tender. No distention MS/ Extremity: Pulses equal, no cyanosis. Neurovascular intact. Full, normal range of motion. Neuro: Awake and alert, GCS 15, oriented to person, place, time, and situation. Moves all extremities. Normal gait. 11:19 Skin: cellulitis, that is moderate, on the medial aspect of right thigh, Vital Signs: 10:38 BP 128 / 56; Pulse 75; Resp 18; Temp 98.6(O); Pulse Ox 98% on R/A; Weight 117.93 kg; mb9 Height 6 ft. 1 in. ; Pain 8/10; 12:00 BP 114 / 61; Pulse 65; Resp 18; Pulse Ox 96% on R/A; db 10:38 Body Mass Index 34.30 (117.93 kg, 185.42 cm) mb9 10:38 Pain Scale: Adult mb9 MDM: 10:35 Patient medically screened. kb 11:20 Differential diagnosis: cellulitis, dvt. Data reviewed: vital signs, nurses notes. kb Consideration of Admission/Observation Escalation of care including admission/observation considered. admission considered for cellulitis, but pt is nontoxic in appearance, afebrile, and vital signs wnl. Pt given return precautions. . Test considered but Not performed: Labs: cbc, cmp, lactate and blood cultures considered, but pt is nontoxic in appearance, vital signs wnl, and afebrile. . Counseling: I had a detailed discussion with the patient and/or guardian regarding the historical points, exam findings, and any diagnostic results supporting the discharge/admit diagnosis, radiology results, the need for outpatient follow up, a family practitioner, to return to the emergency department if symptoms worsen or persist or if there are any questions or concerns that arise at home. 10/21 10:39 Order name: Flu; Complete Time: 12:30 kb 10/21 11:06 Order name: Extrem Venous W Compress Grant; Complete Time: 11:18 EDMS Administered Medications: 12:37 Drug: Clindamycin PO 300 mg PO once Route: PO; db 12:39 Follow up: Response: No adverse reaction mb9 Disposition: 11:56 I was immediately available on-site in the Emergency Department for consultation in the ms3 care of the patient. Disposition Summary: 10/22/23 12:31 Discharge Ordered Notes: Location: Home kb Condition: Stable kb Diagnosis - Cellulitis of right lower limb kb Followup: kb - With: Emergency Department - When: As needed - Reason: Worsening of condition Followup: kb - With: Private Physician - When: 2 - 3 days - Reason: Recheck today's complaints, Continuance of care, Re-evaluation by your physician Discharge Instructions: - Discharge Summary Sheet kb - Cellulitis, Adult, [id number] kb Forms: - Medication Reconciliation Form kb - Thank You Letter kb - Antibiotic Education kb - Prescription Opioid Use kb - Patient Portal Instructions kb - Leadership Thank You Letter kb Prescriptions: - Clindamycin HCl 300 mg Oral Capsule - take 1 capsule ORAL route every 6 hours for 10 days; 40 capsule; Refills: 0, kb Product Selection Permitted Signatures: Dispatcher [employer] EDMS Coby Adams, STORE DIRECTOR-C STORE DIRECTOR-Ckb Zen Daniel, DO ms3 Cecilia Hines, RN RN db Karen Abdullahi RN RN mb9 Corrections: (The following items were deleted from the chart) 11:06 10:40 Extremity Venous Uni [email or web address] ordered. EDMS EDMS
--- NOTE | 2023-10-22 12:32 | ER ---
Nurse's Notes [facility] Name: Howie Pedroza Age: 53 yrs Sex: Male : 1970 Arrival Date: 10/22/2023 Time: 10:29 Bed 20 Private MD: Diagnosis: Cellulitis of right lower limb Presentation: 10/21 10:36 Chief complaint: Patient states: "I feel like a have a blood clot on my right upper mb9 leg. It's red, aching, and swollen that started yesterday. Sunday, I had a fever, SOB, and cough.". Coronavirus screen:. Coronavirus screen: Vaccine status: Patient reports receiving the 2nd dose of the covid vaccine. Ebola Screen: No symptoms or risks identified at this time. Initial Sepsis Screen: Does the patient meet any 2 criteria? No. Patient's initial sepsis screen is negative. Does the patient have a suspected source of infection? No. Patient's initial sepsis screen is negative. Risk Assessment: Do you want to hurt yourself or someone else? Patient reports no desire to harm self or others. Onset of symptoms was 2023. 10:36 Method Of Arrival: Ambulatory mb9 10:36 Acuity: KIMBERLEY 3 mb9 Historical: - Allergies: 10:38 Bactrim; mb9 10:38 Keflex; mb9 10:38 Tramadol HCl; mb9 - PMHx: 10:38 DVT; PVD; Liver cirrhosis (PVD); Hepatitis C; mb9 - PSHx: 10:38 back; mb9 - Immunization history:: Adult Immunizations up to date. - Social history:: Smoking status: Patient denies any tobacco usage or history of. Screenin:39 [facility] ED Fall Risk Assessment (Adult) History of falling in the last 3 months, db including since admission No falls in past 3 months (0 pts) Confusion or Disorientation No (0 pts) Intoxicated or Sedated No (0 pts) Impaired Gait No (0 pts) Mobility Assist Device Used No (0 pt) Altered Elimination No (0 pt) Score/Fall Risk Level 0 - 2 = Low Risk Oriented to surroundings, Maintained a safe environment. Abuse screen: Denies threats or abuse. Denies injuries from another. Nutritional screening: No deficits noted. Tuberculosis screening: No symptoms or risk factors identified. Assessment: 11:14 Reassessment: PATIENT IS NOT BACK FROM ULTRASOUND. db 12:00 Reassessment: Patient appears in no apparent distress at this time. Patient and/or db family updated on plan of care and expected duration. Pain level reassessed. Patient is alert, oriented x 3, equal unlabored respirations, skin warm/dry/pink. General: Appears in no apparent distress. comfortable, Behavior is calm, cooperative. Neuro: Level of Consciousness is awake, alert, obeys commands, Oriented to person, place, time, situation. Respiratory: Airway is patent Respiratory effort is even, unlabored, Respiratory pattern is regular, symmetrical. 12:30 Pain: Complains of pain in right leg. db Vital Signs: 10:38 BP 128 / 56; Pulse 75; Resp 18; Temp 98.6(O); Pulse Ox 98% on R/A; Weight 117.93 kg; mb9 Height 6 ft. 1 in. ; Pain 8/10; 12:00 BP 114 / 61; Pulse 65; Resp 18; Pulse Ox 96% on R/A; db 10:38 Body Mass Index 34.30 (117.93 kg, 185.42 cm) mb9 10:38 Pain Scale: Adult mb9 ED Course: 10:32 Patient arrived in ED. mg5 10:35 Coby Adams FNP-C is PHCP. kb 10:35 Zen Daniel DO is Attending Physician. kb 10:38 Triage completed. mb9 10:39 Arm band placed on. mb9 10:44 Cecilia Hines, RN is Primary Nurse. db 10:46 Patient taken to ultrasound. via wheelchair. db 11:06 Extrem Venous W Compress Grant In Process Unspecified. EDMS 12:00 Flu Sent. db 12:30 Provided Education on: ULTRASOUND. db 12:39 No provider procedures requiring assistance completed. Patient did not have IV access mb9 during this emergency room visit. 12:40 Patient has correct armband on for positive identification. Placed in gown. Bed in low db position. Call light in reach. Side rails up X 1. ULTRASOUND. Pulse ox on. NIBP on. Warm blanket given. Administered Medications: 12:37 Drug: Clindamycin PO 300 mg PO once Route: PO; db 12:39 Follow up: Response: No adverse reaction mb9 Medication: 12:30 VIS not applicable for this client. db Outcome: 12:31 Discharge ordered by . francisco 12:39 Discharged to home ambulatory, tariq 12:39 Condition: stable 12:39 Discharge instructions given to patient, Instructed on discharge instructions, follow up and referral plans. Demonstrated understanding of instructions, follow-up care, medications, Prescriptions given X 1, 12:39 Patient left the ED. ana [email or web address] Signatures: Dispatcher [employer] EDND Coby Adams, FORREST-C FISHING TOOL SUPERVISOR-Cecilia Coleman, RN RN Karen New RN RN mb9 Nancy Martinez mg5
[2023-10-22 13:07] VITALS: BP 114/61; TEMP 98.6; O2SAT 96
== END ==
LOC: ER 10:29
DX: L03.115 Cellulitis of right lower limb (principal); Z86.718 Personal history of other venous thrombosis and embolism; Z88.1 Allergy status to other antibiotic agents; Z88.5 Allergy status to narcotic agent
CPT/HCPCS: 87804; 93970; 99284

== ENCOUNTER 2023-10-24 20:20 | Inpatient (IN) | payer OTHER ==
[2023-10-24] MEDS ORDERED: CLINDAMYCIN 900MG/D5W 900 MG/50 ML IVPB IV ONE (21:02)
[2023-10-24 21:13] LABS: Absolute Eosinophils 0.3 K/uL (0-0.5); Absolute Lymphocytes (CBC) 0.8 K/uL (0.7-4.9); Absolute Monocytes 0.5 K/uL (0.1-1.3); Absolute Neutrophil 1.9 K/uL (1.8-8.0); Basophils % 1.2 % (0-1.3); Eosinophils % 8.3 % (0-4.4); Hematocrit 33.3 % (39.6-49.0); Hemoglobin 11.5 g/dL (13.6-17.9); Lymphocytes % 22.1 % (15.3-44.8); MCH 31.6 pg (27.0-35.0); MCHC 34.4 g/dL (32.0-36.0); MPV 7.5 fL (7.6-11.3); Monocytes % 13.6 % (3.3-12.3); Neutrophils % 54.8 % (41.7-73.7); Nucleated Red Blood Cells % 0.1 % (0-0); Platelets 131 thou/uL (152-406); RBC Red Blood Cell Count 3.62 M/uL (4.33-5.43); Red Cell Distribution Width 15.7 % (12.1-15.2)
[2023-10-24 21:28] LABS: Albumin 2.9 g/dL (3.4-5.0); Albumin/Globulin Ratio 0.7 (1.1-1.8); Anion Gap 7.3 mEq/L (5.0-15.0); C-Reactive Protein 89.8 mg/L (<3.00); Potassium 3.3 mEq/L (3.5-5.1); Protein, Total 6.9 g/dL (6.4-8.2)
--- NOTE | 2023-10-24 21:44 | EDPHYS ---
Physician Documentation [facility] Name: Howie Pedroza Age: 53 yrs Sex: Male : 1970 Arrival Date: 10/24/2023 Time: 20:20 Bed 19 Private MD: ED Physician Shola Bolaños HPI: 10/23 20:30 This 53 yrs old Male presents to ER via Unassigned with complaints of Leg sp4 Swelling - spreading down to ankle pain,redness,burning. 20:45 53-year-old male with history of liver cirrhosis history of DVT history of hepatitis , sp4 history of peripheral vascular disease, presents with worsening right lower extremity redness and pain associated with signs of cellulitic skin infection. Patient was here on 10/22/2023 for the same and had bilateral lower extremity ultrasound that has revealed no sonographic evidence of left or right lower extremity DVT. Patient states he is on Eliquis. Also he was initiated on clindamycin p.o. on 10/22/2023 which she states did not help. . 21:41 Since medications include propranolol 40 mg p.o. 3 times daily, furosemide 80 mg in the sp4 morning furosemide 80 mg p.o. in the evening, potassium chloride 10 mEq daily, lactulose 30 g p.o. once a day, Eliquis 2.5 mg p.o. twice daily, gabapentin 300 mg p.o. 3 times daily. . Historical: - Allergies: 20:36 Bactrim; vc1 20:36 Keflex; vc1 20:36 Tramadol HCl; vc1 - PMHx: 20:36 DVT; Hepatitis C; Liver cirrhosis (PVD); PVD; vc1 - PSHx: 20:36 back; vc1 - Immunization history:: Client reports receiving the 2nd dose of the Covid vaccine. - Social history:: Smoking status: Patient denies any tobacco usage or history of. ROS: 20:46 Constitutional: Negative for fever, chills, and weight loss, positive right lower sp4 extremity redness swelling and pain. 20:46 All other systems are negative, Exam: 20:46 Constitutional: This is a well developed, well nourished patient who is awake, alert, sp4 and in no acute distress. Multiple lipomas to upper and lower extremities. Head/Face: Normocephalic, atraumatic. Eyes: Pupils equal round and reactive to light, extra-ocular motions intact. Lids and lashes normal. Conjunctiva and sclera are not injected. Cornea within normal limits. Periorbital areas with no swelling, redness, or edema. ENT: Nares patent. No nasal discharge, no septal abnormalities noted. Tympanic membranes are normal and external auditory canals are clear. Oropharynx with no redness, swelling, or masses, exudates, or evidence of obstruction, uvula midline. Mucous membranes moist. Neck: Trachea midline, no thyromegaly or masses palpated, and no cervical lymphadenopathy. Supple, full range of motion without nuchal rigidity, or vertebral point tenderness. Chest/axilla: Normal chest wall appearance and motion. Nontender with no deformity. No lesions are appreciated. Cardiovascular: Regular rate and rhythm with a normal S1 and S2. No gallops, murmurs, or rubs. Normal PMI, no JVD. No pulse deficits. Respiratory: Lungs have equal breath sounds bilaterally, clear to auscultation and percussion. No rales, rhonchi or wheezes noted. No increased work of breathing, no retractions or nasal flaring. Abdomen/GI: Soft, with normal bowel sounds. No distension or tympany. No guarding or rebound. No evidence of tenderness throughout. Back: No spinal tenderness. No costovertebral tenderness. Skin: Warm, dry with normal turgor. Normal color with no rashes, no lesions, and positive cellulitis right lower extremity right posterior right medial location. MS/ Extremity: Pulses equal, no cyanosis. Neurovascular intact. Full, normal range of motion. Positive right lower extremity cellulitis with redness tenderness and pain right posterior right medial lower extremity tracking down to the right calf and up to the right thigh. Neuro: Awake and alert, GCS 15, oriented to person, place, time, and situation. Cranial nerves II-XII grossly intact. Motor strength 5/5 in all extremities. Sensory grossly intact. Psych: Awake, alert, with orientation to person, place and time. Behavior, mood, and affect are within normal limits Vital Signs: 20:34 BP 151 / 110; Pulse 70; Resp 15; Temp 98.1; Pulse Ox 100% ; Weight 118.39 kg; Height 6 vc1 ft. 1 in. ; 21:00 BP 149 / 89; Pulse 61; Resp 17 S; Pulse Ox 100% on R/A; jw7 22:00 BP 153 / 94; Pulse 61; Resp 16 S; Pulse Ox 100% on R/A; jw7 23:00 BP 121 / 80; Pulse 57; Resp 16 S; Pulse Ox 98% on R/A; jw7 10/24 00:00 BP 120 / 75; Pulse 55; Resp 15 S; Pulse Ox 97% on R/A; jw7 10/23 20:34 Body Mass Index 34.43 (118.39 kg, 185.42 cm) vc1 MDM: 10/23 20:32 Patient medically screened. sp4 21:43 Differential Diagnosis altered mental status, sepsis, flu, cellulitis . Data reviewed: sp4 vital signs, nurses notes, old medical records, lab test result(s). Consideration of Admission/Observation Escalation of care including admission/observation considered. Management of patient was discussed with the following: Hospitalist: Fabi WHALEN . 10/23 20:38 Order name: CBC with Diff; Complete Time: 21:29 [facility] 10/23 20:38 Order name: CMP; Complete Time: 21:29 [facility] 10/23 20:39 Order name: CRP; Complete Time: 21:29 [facility] 10/23 20:39 Order name: Blood Culture Adult (2) [facility] 10/23 22:43 Order name: Protime (+INR) [facility] 10/23 22:43 Order name: PTT, Activated Partial Thromb [facility] 10/23 23:51 Order name: Basic Metabolic Panel [facility] 10/23 23:51 Order name: Basic Metabolic Panel [facility] 10/23 23:51 Order name: CBC with Automated Diff [facility] 10/23 23:51 Order name: CBC with Automated Diff [facility] 10/23 23:51 Order name: CONS Physician Consult [facility] 10/23 20:38 Order name: IV Saline Lock; Complete Time: 21:00 [facility] 10/23 20:38 Order name: Labs collected and sent; Complete Time: 21:00 sp4 Administered Medications: 21:14 Drug: Clindamycin IVPB 900 mg IVPB once over 30 mins; (mix in 50 mL) Route: IVPB; jw7 Infused Over: 30 mins; Site: right antecubital; 10/24 00:17 Follow up: Response: No adverse reaction; IV Status: Completed infusion; IV Intake: [id number] 10/23 22:11 Drug: morphine IVP or IV 4 mg IVP once over 4 mins Route: IVP; Infused Over: 4 mins; jw7 Site: right antecubital; 10/24 00:17 Follow up: Response: No adverse reaction; Marked relief of symptoms; Pain is decreased 10/23 22:11 Drug: Ondansetron IVP 4 mg IVP once; over 2 minutes Route: IVP; Site: right antecubital;10/24 00:17 Follow up: Response: No adverse reaction; Marked relief of symptoms; Nausea is decreased10/23 22:11 Drug: diphenhydrAMINE IVP 25 mg IVP once Route: IVP; Site: right antecubital; 10/24 00:17 Follow up: Response: No adverse reaction 10/23 22:12 Drug: vancoMYCIN IVPB 2 grams IVPB at calculated rate once Route: IVPB; Rate: jw7 calculated rate; Site: right antecubital; 10/24 00:17 Follow up: Response: No adverse reaction; IV Status: Completed infusion; IV Intake: jw7 250ml Disposition Summary: 10/24/23 21:43 Hospitalization Ordered Notes: Hospitalization Status: Inpatient Admission sp4 Provider: Parker Dunlap Location: Telemetry/[facility] (Inpatient) sp4 Condition: Stable sp4 Problem: new sp4 Symptoms: have improved sp4 Bed/Room Type: Standard sp4 Room Assignment: 425(10/24/23 23:58) rv1 Diagnosis - Cellulitis of right lower limb sp4 - Failure of outpatient management, right lower extremity cellulitis sp4 Forms: - Medication Reconciliation Form sp4 - SBAR form sp4 - Leadership Thank You Letter sp4 Signatures: Dispatcher [employer] Layla Reyes RN RN vc1 Shannon Figueroa RN RN jw7 Ynes Cabello rv1 Shola Bolaños MD MD sp4 Corrections: (The following items were deleted from the chart) 10/23 23:58 21:43 sp4 rv1
--- NOTE | 2023-10-24 21:44 | ER ---
Nurse's Notes [facility] Name: Howie Pedroza Age: 53 yrs Sex: Male : 1970 Arrival Date: 10/24/2023 Time: 20:20 Bed 19 Private MD: Diagnosis: Cellulitis of right lower limb;Failure of outpatient management, right lower extremity cellulitis Presentation: 10/23 20:34 Chief complaint: Patient states: I was here recently and sent home on abx for vc1 cellulitis, it is getting worse. Coronavirus screen: Vaccine status: Patient reports receiving the 2nd dose of the covid vaccine. Ebola Screen: Patient negative for fever greater than or equal to 101.5 degrees Fahrenheit, and additional compatible Ebola Virus Disease symptoms Patient denies exposure to infectious person. Patient denies travel to an Ebola-affected area in the 21 days before illness onset. No symptoms or risks identified at this time. Initial Sepsis Screen: Does the patient meet any 2 criteria? No. Patient's initial sepsis screen is negative. Does the patient have a suspected source of infection? No. Patient's initial sepsis screen is negative. Risk Assessment: Do you want to hurt yourself or someone else? Patient reports no desire to harm self or others. Onset of symptoms is unknown. 20:34 Method Of Arrival: Ambulatory vc1 20:34 Acuity: KIMBERLEY 3 vc1 Triage Assessment: 20:37 General: Appears in no apparent distress. comfortable, Behavior is calm, cooperative, vc1 appropriate for age. Pain: Complains of pain in medial aspect of right thigh, medial aspect of right knee and medial aspect of right calf Pain does not radiate. Pain Quality of pain is described as burning. EENT: No deficits noted. No signs and/or symptoms were reported regarding the EENT system. Neuro: Level of Consciousness is awake, alert, obeys commands, Oriented to person, place, time, situation, Appropriate for age. Cardiovascular: No deficits noted. Edema pitting to left ankle, left foot, right ankle and right foot. Respiratory: Airway is patent Respiratory effort is even, unlabored, Respiratory pattern is regular, symmetrical. GI: No deficits noted. No signs and/or symptoms were reported involving the gastrointestinal system. : No deficits noted. No signs and/or symptoms were reported regarding the genitourinary system. Derm: Rash noted that is red, on medial aspect of right thigh, medial aspect of right knee and medial aspect of right calf. Musculoskeletal: No deficits noted. No signs and/or symptoms reported regarding the musculoskeletal system. Historical: - Allergies: 20:36 Bactrim; vc1 20:36 Keflex; vc1 20:36 Tramadol HCl; vc1 - PMHx: 20:36 DVT; Hepatitis C; Liver cirrhosis (PVD); PVD; vc1 - PSHx: 20:36 back; vc1 - Immunization history:: Client reports receiving the 2nd dose of the Covid vaccine. - Social history:: Smoking status: Patient denies any tobacco usage or history of. Screenin:37 [facility] ED Fall Risk Assessment (Adult) History of falling in the last 3 months, vc1 including since admission No falls in past 3 months (0 pts) Confusion or Disorientation No (0 pts) Intoxicated or Sedated No (0 pts) Impaired Gait No (0 pts) Mobility Assist Device Used No (0 pt) Altered Elimination No (0 pt) Score/Fall Risk Level 0 - 2 = Low Risk Oriented to surroundings, Maintained a safe environment, Educated pt \T\ family on fall prevention, incl call for assistance when getting out of bed. Abuse screen: Denies threats or abuse. Nutritional screening: No deficits noted. Tuberculosis screening: No symptoms or risk factors identified. Assessment: 20:45 General: Appears in no apparent distress. uncomfortable, Behavior is calm, cooperative. jw7 Pain: Complains of pain in medial aspect of right calf and medial aspect of right knee and medial aspect of right thigh Pain does not radiate. Pain currently is 7 out of 10 on a pain scale. Quality of pain is described as burning, Pain began gradually, Is continuous. Neuro: Level of Consciousness is awake, alert, obeys commands, Oriented to person, place, time, situation. Cardiovascular: Heart tones S1 S2 present Capillary refill < 3 seconds Clubbing of nail beds is absent JVD is absent Patient's skin is warm and dry. Respiratory: Airway is patent Trachea midline Respiratory effort is even, unlabored, Respiratory pattern is regular, symmetrical, Breath sounds are clear bilaterally. GI: Abdomen is round non-distended, Bowel sounds present X 4 quads. Abd is soft and non tender X 4 quads. : No deficits noted. No signs and/or symptoms were reported regarding the genitourinary system. EENT: No deficits noted. No signs and/or symptoms were reported regarding the EENT system. Derm: Skin is intact, is healthy with good turgor, Skin is dry, Skin is normal, Skin temperature is warm Rash noted that is red, Reports burning. Musculoskeletal: Circulation, motion, and sensation intact. Range of motion: intact in all extremities. 22:00 Reassessment: Patient appears in no apparent distress at this time. No changes from [facility] previously documented assessment. Patient and/or family updated on plan of care and expected duration. Pain level reassessed. Patient is alert, oriented x 3, equal unlabored respirations, skin warm/dry/pink. 23:00 Reassessment: Patient appears in no apparent distress at this time. Patient and/or jw7 family updated on plan of care and expected duration. Pain level reassessed. Patient is alert, oriented x 3, equal unlabored respirations, skin warm/dry/pink. Patient states feeling better. 10/24 00:00 Reassessment: Patient appears in no apparent distress at this time. No changes from 7 previously documented assessment. Patient and/or family updated on plan of care and expected duration. Pain level reassessed. Patient is alert, oriented x 3, equal unlabored respirations, skin warm/dry/pink. Vital Signs: 10/23 20:34 BP 151 / 110; Pulse 70; Resp 15; Temp 98.1; Pulse Ox 100% ; Weight 118.39 kg; Height 6 vc1 ft. 1 in. ; 21:00 BP 149 / 89; Pulse 61; Resp 17 S; Pulse Ox 100% on R/A; jw7 22:00 BP 153 / 94; Pulse 61; Resp 16 S; Pulse Ox 100% on R/A; jw7 23:00 BP 121 / 80; Pulse 57; Resp 16 S; Pulse Ox 98% on R/A; jw7 10/24 00:00 BP 120 / 75; Pulse 55; Resp 15 S; Pulse Ox 97% on R/A; jw7 10/23 20:34 Body Mass Index 34.43 (118.39 kg, 185.42 cm) vc1 ED Course: 10/23 20:23 Patient arrived in ED. ra3 20:30 Shola Bolaños MD is Attending Physician. sp4 20:36 Triage completed. vc1 20:36 Arm band placed on right wrist. vc1 20:45 Patient has correct armband on for positive identification. Bed in low position. Call jw7 light in reach. 20:59 Shannon Figueroa RN is Primary Nurse. jw7 21:00 Initial lab(s) drawn, by me, sent to lab. First set of blood cultures drawn by me. kd3 Inserted saline lock: 18 gauge in right antecubital area, using aseptic technique. Blood collected. 21:14 Blood Culture Adult (2) Sent. jw7 21:14 CRP Sent. jw7 21:42 Parker Dunlap MD is Hospitalizing Provider. sp4 Administered Medications: 21:14 Drug: Clindamycin IVPB 900 mg IVPB once over 30 mins; (mix in 50 mL) Route: IVPB; jw7 Infused Over: 30 mins; Site: right antecubital; 10/24 00:17 Follow up: Response: No adverse reaction; IV Status: Completed infusion; IV Intake: [id number] 10/23 22:11 Drug: morphine IVP or IV 4 mg IVP once over 4 mins Route: IVP; Infused Over: 4 mins; jw7 Site: right antecubital; 10/24 00:17 Follow up: Response: No adverse reaction; Marked relief of symptoms; Pain is decreased jw7 10/23 22:11 Drug: Ondansetron IVP 4 mg IVP once; over 2 minutes Route: IVP; Site: right antecubital;jw7 10/24 00:17 Follow up: Response: No adverse reaction; Marked relief of symptoms; Nausea is decreasedjw7 10/23 22:11 Drug: diphenhydrAMINE IVP 25 mg IVP once Route: IVP; Site: right antecubital; jw7 10/24 00:17 Follow up: Response: No adverse reaction jw7 10/23 22:12 Drug: vancoMYCIN IVPB 2 grams IVPB at calculated rate once Route: IVPB; Rate: jw7 calculated rate; Site: right antecubital; 10/24 00:17 Follow up: Response: No adverse reaction; IV Status: Completed infusion; IV Intake: jw7 250ml Medication: 10/23 20:37 VIS not applicable for this client. vc1 Intake: 10/24 00:17 IV: 50ml; Total: 50ml. jw7 00:17 IV: 250ml; Total: 300ml. jw7 Outcome: 10/23 21:43 Decision to Hospitalize by Provider. sp4 10/24 01:08 Patient left the ED. cm10 Signatures: Charla Parekh, RN RN kd3 Layla Correa RN RN vc1 Shannon Figueroa, RN RN jw7 Shola Bolaños MD MD sp4 Sonja Hearn RN RN cm10 Kristen Kaiser ra3 Corrections: (The following items were deleted from the chart) 00:10/23 23:00 Reassessment: Patient appears in no apparent distress at this time. No jw7 changes from previously documented assessment. Patient and/or family updated on plan of care and expected duration. Pain level reassessed. Patient is alert, oriented x 3, equal unlabored respirations, skin warm/dry/pink. jw7
[2023-10-24] MEDS ORDERED: VANCOMYCIN 1 GM/VIAL ONE (21:48)
[2023-10-24] MEDS ORDERED: DIPHENHYDRAMINE 50 MG/ML VIAL ONE (21:48)
[2023-10-24] MEDS ORDERED: ONDANSETRON 4 MG/2 ML VIAL ONE (21:48)
[2023-10-24] MEDS ORDERED: MORPHINE 4 MG/ML SYR ONE (21:49)
[2023-10-24] MEDS ORDERED: NA CHLORIDE 0.9% 250 ML ONE (21:49)
[2023-10-24] MEDS ORDERED: ACETAMINOPHEN 500 MG TAB PO PRN (23:42)
[2023-10-24] MEDS: VANCOMYCIN 2 GM in NA CHLORIDE 0.9% 250 ML IVPB SCH (23:45)
--- NOTE | 2023-10-24 23:59 | P.HP ---
Certification for Inpatient Patient admitted to: Inpatient With expected LOS: >2 Midnights Patient will require the following post-hospital care: None Practitioner: I am a practitioner with admitting privileges, knowledge of patient current condition, hospital course, and medical plan of care. Services: Services provided to patient in accordance with Admission requirements found in Title 42 Section 412.3 of the Code of Federal Regulations Patient History Date of Service: 10/24/23 Reason for admission: Cellulitis of the right lower extremity from the thigh to the ankle History of Present Illness: Patient is a 53-year-old gentleman who came to the hospital with cellulitis of the right lower extremity. Patient was just in the emergency room a couple of days ago with significant erythema. Patient was discharged home on oral antibiotics. Patient was worried he had a venous thrombosis; however, venous Doppler was negative. Patient's erythema spread from the thigh all the way down to the ankle. Patient came into the emergency room as he was getting significantly worse. In the ER, patient had a repeat venous Doppler which did not show DVT in the right leg. At this time, patient will be admitted to the hospital for cellulitis of the right lower extremity with extension from the thigh all the way to the ankle. This is crossing multiple joints and patient needs to be admitted for inpatient hospitalization. Patient has a history of hepatitis C that was diagnosed in the early . Patient is unsure as to how he got hepatitis C. He thought it may have been from needles from getting a tattoo. Patient's liver disease worsened, and he was diagnosed with cirrhosis. In 2010, he was treated for the hepatitis C. Patient states that the virus is undetectable. Patient has been on medication for cirrhosis. Patient has also been found to have esophageal varices. Patient will continue with medication for elevated portal pressure and cirrhosis. Will monitor patient's H&H as well as patient's liver function testing. Will continue patient's home medications at this time. Allergies cephalexin monohydrate [From Keflex] Allergy (Intermediate, Verified 06/27/12 20:54) Rash spironolactone Allergy (Intermediate, Verified 06/27/12 20:54) SWELLING tramadol Allergy (Intermediate, Verified 06/27/12 20:54) Rash Tramadol HCl Allergy (Uncoded 05/18/15 02:23) Unknown Home medications list reviewed: Yes Home Medications: Apixaban [Eliquis] 2.5 mg PO BID 10/24/23 Furosemide 40 mg PO SEECOM 10/24/23 Gabapentin 300 mg PO TID 10/24/23 Lactulose 30 gm PO DAILY 10/24/23 Potassium Chloride 10 meq PO DAILY 10/24/23 Propranolol [Inderal] 40 mg PO TID 10/24/23 - Past Medical/Surgical History -: Hepatitis C -: Cirrhosis -: Esophageal varices -: Portal hypertension -: DVT of the left lower extremity -: Neuropathy -: Patient has had endoscopy for esophageal varices - Family History Father Family History: Reviewed- Non-Contributory - Social History Smoking Status: Former smoker Alcohol use: Yes CD- Drugs: Yes Review of Systems 10-point ROS is otherwise unremarkable Physical Examination - Vital Signs Temperature: 98 F (Vitals have been reviewed) - Physical Exam General: Alert, In no apparent distress, Oriented x3 HEENT: Atraumatic, PERRLA, Mucous membr. moist/pink, EOMI, Sclerae nonicteric Neck: Supple, 2+ carotid pulse no bruit, No LAD, Without JVD or thyroid abnormality Respiratory: Clear to auscultation bilaterally, Normal air movement Cardiovascular: Regular rate/rhythm, Systolic murmur (Holosystolic), Diastolic murmur Gastrointestinal: Normal bowel sounds, Soft and benign, Non-distended, No tenderness Musculoskeletal: No clubbing, No tenderness, Swelling Integumentary: Tenderness/swelling, Erythema, Warmth Neurological: Normal gait, Normal speech, Normal strength at 5/5 x4 extr, Normal tone, Sensation intact, Cranial nerves 3-12 intact, Normal affect Lymphatics: No axilla or inguinal lymphadenopathy - Studies Laboratory Data (last 24 hrs) 10/24/23 10/24/23 20:55 20:55 WBC 3.50 L Hgb 11.5 L Hct 33.3 L Plt Count 131 L Sodium 140 Potassium 3.3 L BUN 16 Creatinine 0.88 Glucose 104 Total Bilirubin 2.0 H AST 50 H ALT 45 Alkaline Phosphatase 128 H Assessment & Plan - Problems (Diagnosis) (1) Cellulitis of right lower extremity Current Visit: Yes Status: Acute (2) Hepatitis C Current Visit: Yes Status: Acute (3) Cirrhosis Current Visit: Yes Status: Acute (4) Portal hypertension Current Visit: Yes Status: Acute (5) Esophageal varices Current Visit: Yes Status: Acute (6) DVT, lower extremity Current Visit: Yes Status: Acute (7) Pansystolic murmur Current Visit: Yes Status: Acute - Plan Plan: 1. Patient with right lower extremity cellulitis; patient was treated with oral antibiotic therapy, however, patient is clinical symptoms were worsening so patient was readmitted and we will start patient with IV antibiotic therapy. Blood cultures are pending. Continue with vancomycin and meropenem, and we will hold cephalexin. 2. Patient with hepatitis C with cirrhosis; patient with treatment for hepatitis C. Patient has esophageal varices. Continue with PPI. Patient with portal hypertension. Continue with medication for cirrhosis. 3. DVT of the left lower extremity; continue with Eliquis. Monitor coagulation profile secondary to patient's liver pathology 4. Pansystolic murmur; blood cultures are pending. Echocardiogram to evaluate for endocarditis. Continue with IV antibiotic therapy for the cellulitis. 5. GI DVT prophylaxis Discharge Plan: Home Plan to discharge in: Greater than 2 days - Advance Directives Does patient have a Living Will: No Does patient have a Durable POA for Healthcare: No - Code Status/Comfort Care Code Status Assessed: Yes Code Status: Full Code Critical Care: No Time Spent Managing PTS Care (In Minutes): 45
[2023-10-25 01:08] LABS: PT Prothrombin Time 14.8 SECONDS (9.5-12.5); PTT, Activated Partial Thromb 36.4 SECONDS (24.3-36.9); Protime INR 1.36
[2023-10-25 01:29] VITALS: O2SAT 97
[2023-10-25] MEDS: NA CHLORIDE 0.9% 1,000 ML IV SCH (01:39)
[2023-10-25] MEDS: METHYLPREDNISOLONE 40 MG INJ IV SCH (01:39)
[2023-10-25 01:57] VITALS: BMI 35.8
[2023-10-25] MEDS: MORPHINE 2 MG/ML SYR IV PRN (01:58)
[2023-10-25 03:41] LABS: Absolute Eosinophils 0.4 K/uL (0-0.5); Absolute Lymphocytes (CBC) 0.9 K/uL (0.7-4.9); Absolute Monocytes 0.5 K/uL (0.1-1.3); Absolute Neutrophil 1.8 K/uL (1.8-8.0); Basophils % 1.1 % (0-1.3); Eosinophils % 9.8 % (0-4.4); Hematocrit 29.9 % (39.6-49.0); Hemoglobin 10.4 g/dL (13.6-17.9); MCH 31.9 pg (27.0-35.0); MCHC 34.8 g/dL (32.0-36.0); MCV 91.7 fL (80-100); MPV 7.8 fL (7.6-11.3); Neutrophils % 49.1 % (41.7-73.7); Nucleated Red Blood Cells % 0.3 % (0-0); Platelets 108 thou/uL (152-406); RBC Red Blood Cell Count 3.26 M/uL (4.33-5.43); Red Cell Distribution Width 15.3 % (12.1-15.2)
[2023-10-25 04:01] LABS: Anion Gap 9.5 mEq/L (5.0-15.0); Potassium 3.5 mEq/L (3.5-5.1)
[2023-10-25] MEDS: GABAPENTIN 300 MG CAP PO SCH (08:18)
[2023-10-25] MEDS: APIXABAN 2.5 MG TABLET PO SCH (08:18)
[2023-10-25] MEDS: Meropenem 1,000 MG in NA CHLORIDE 0.9% 100 ML IV SCH ×2 (08:19→16:20)
[2023-10-25] MEDS: LACTULOSE 20 GM/30 ML UCUP PO SCH (09:55)
[2023-10-25] MEDS ORDERED: INFLUENZA VACCINE (for 6+ mo) 0.5 ML DOSE IMVAC ONE (10:00)
--- NOTE | 2023-10-25 10:24 | P.CNS ---
Date of Consult: 10/25/23 Reason for Consult: cellulitis RLE Chief Complaint: Cellulitis of the right lower extremity from the thigh to the ankle Allergies sulfamethoxazole [From Bactrim] Allergy (Severe, Verified 10/25/23 01:16) Hives/Rash trimethoprim [From Bactrim] Allergy (Severe, Verified 10/25/23 01:16) Hives/Rash cephalexin monohydrate [From Keflex] Allergy (Intermediate, Verified 06/27/12 20:54) Rash spironolactone Allergy (Intermediate, Verified 06/27/12 20:54) SWELLING tramadol Allergy (Intermediate, Verified 06/27/12 20:54) Rash Tramadol HCl Allergy (Uncoded 05/18/15 02:23) Unknown Home medications list reviewed: Yes Home Medications: Apixaban [Eliquis] 2.5 mg PO BID 10/24/23 Furosemide 40 mg PO SEECOM 10/24/23 Gabapentin 300 mg PO TID 10/24/23 Lactulose 30 gm PO DAILY 10/24/23 Potassium Chloride 10 meq PO DAILY 10/24/23 Propranolol [Inderal] 40 mg PO TID 10/24/23 - Past Medical/Surgical History -: Hepatitis C -: Cirrhosis -: Esophageal varices -: Portal hypertension -: DVT of the left lower extremity -: Neuropathy -: Patient has had endoscopy for esophageal varices - Family History Father Family History: Reviewed- Non-Contributory - Social History Smoking Status: Former smoker Alcohol use: Yes CD- Drugs: Yes Place of Residence: Home Review of Systems 10-point ROS is otherwise unremarkable Integumentary: As per HPI Physical Examination Temp Pulse Resp BP Pulse Ox 97.4 F 69 16 163/69 H 98 10/25/23 08:00 10/25/23 08:00 10/25/23 08:50 10/25/23 08:00 10/25/23 08:50 General: Alert, In no apparent distress, Oriented x3 HEENT: Atraumatic, Normocephalic Respiratory: Clear to auscultation bilaterally, Normal air movement Cardiovascular: Regular rate/rhythm, Edema Gastrointestinal: Normal bowel sounds, No tenderness, Other (round) Integumentary: Other (right posterior thigh erythema/warmth down to right ankle, no drainage, no open wound) Neurological: Normal speech, Normal tone, Normal affect Laboratory Data - Reviewed Microbiology Data - Reviewed Imagings Data: - Reviewed Conclusions/Impression: Problem List Cellulitis, Right Lower Extremity Cirrhosis Portal Hypertension Hx DVT of left lower extremity Esophageal Varicies Cellulitis of Right Lower Extremity - Patient was precribed Clindamycin PO 2 days prior to returning to the ED for worsening RLE erythema,tenderness,warmth with extension from thigh down to ankle. - Venous study 10/21: No sonographic evidence of left or right lower extremity deep venous thrombosis - Currently on Meropenem and Vancomcyin Blood cultures 10/23: pending Afebrile Recommendations - Cellulitis: Continue antibiotic therapy for 14 days. Currently on Meropenem and Vancomycin, continue for now. Will adjust antibiotics as appropriate. - follow up with blood culture results - monitor for worsening erythema/tenderness/new drainage. - Monitor CBC, BMP, Vanco trough - Keep leg elevated Case discussed with [place].
--- NOTE | 2023-10-25 11:23 | P.PN ---
Date of Service: 10/25/23 Subjective: feels right lower extremity looks/feels ~same as yesterday no change in medications recently besides the clindamycin he was prescribed ~2 days ago denies fever, chills. no n/v/d at this time, reports "feeling sick" throughout entire body just prior to noticing redness in leg afebrile ROS: 10 point ROS as noted above, otherwise negative Physical Exam: GEN: Alert, oriented, NAD HEENT: Normal conjunctiva, sclera anicteric CV: Regular rate and rhythm, Holosystolic murmur, Diastolic murmur Pulm: Nonlabored respirations on room air, clear bilaterally ABD: Soft, nontender, nondistended Integumentary: erythema/warmth/swelling from R posterior thigh to R ankle with induration. No drainage, no open wounds Neuro: Normal speech, normal affect vitals reviewed Problem List: Right lower extremity cellulitis Cirrhosis in patient with Hepatitis C - now s/p treatment Portal Hypertension Esophageal Varicies Hx DVT of left lower extremity venous insufficiency Pansystolic murmur h/o empyema Right lower extremity cellulitis seen in ED ~2 days ago for worsening RLE erythema/tenderness/warmth. prescribed PO clindamycin reported symptoms worsened since ED visit so he came back venous u/s (10/21): no DVT in either extremities continue empiric merrem / vanc (10/24-) Follow blood cultures ID consulted Keep legs elevated. Cirrhosis in patient with Hepatitis C Portal Hypertension Esophageal Varicies treated for hep c in 2010. Patient unsure how he initially got it. continue home lactulose, propranolol, potassium chloride continue PO lasix; takes 80 mg in morning and 40mg at night Hx DVT of left lower extremity venous insufficiency No DVT seen on venous ultrasound from ER visit 2 days ago continue home eliquis - hold this evening and in AM for ENMA Pansystolic murmur echo concerning for possible endocarditis discussed with Dr. Werner, recommends ENMA; npo after midnight prior echo done >5 years ago noted some thickening of aortic valve at that time monitor on telemetry VTE: home eliquis Code: Full Dispo: Home, ~2-3 days
[2023-10-25] MEDS: VANCOMYCIN 2 GM in NA CHLORIDE 0.9% 500 ML IVPB SCH (11:59)
[2023-10-25] MEDS: FUROSEMIDE 40 MG TABLET PO SCH ×2 (12:07→16:20)
[2023-10-25] MEDS: POTASSIUM CL SA 10 MEQ TAB PO SCH (12:08)
--- NOTE | 2023-10-25 14:27 | ECHO ---
HEIGHT: 6 ft 1 in WEIGHT: 271 lb 11.2 oz DATE OF STUDY: 10/25/[address]: Parker Dunlap MD 2-DIMENSIONAL: YES M.MODE: YES DOPPLER: YES COLOR FLOW: YES TDS: PORTABLE: YES DEFINITY: BUBBLE STUDY: DIAGNOSIS: MURMUR/ ENDOCARDITIS CARDIAC HISTORY: CATHERIZATION: SURGERY: PROSTHETIC VALVE: PACEMAKER: MEASUREMENTS (cm) DIASTOLIC (NORMALS) SYSTOLIC (NORMALS) IVSd 1.3 (0.6-1.2) LA Diam 5.0 (1.9-4.0) LVEF 61% LVIDd 5.1 (3.5-5.7) LVIDs 3.4 (2.0-3.5) %FS 33% LVPWd 1.4 (0.6-1.2) Ao Diam 3.0 (2.0-3.7) 2 DIMENSIONAL ASSESSMENT: RIGHT ATRIUM: NORMAL LEFT ATRIUM: NORMAL RIGHT VENTRICLE: NORMAL LEFT VENTRICLE: NORMAL TRICUSPID VALVE: MILD TRICUSPID REGURGITATION MITRAL VALVE: NORMAL, MILD MITRAL REGURGITATION PULMONIC VALVE: NORMAL AORTIC VALVE: MODERATE STENOSIS, MILD REGURGITATION PERICARDIAL EFFUSION: NONE AORTIC ROOT: LEFT VENTRICULAR WALL MOTION: NORMAL DOPPLER/COLOR FLOW: NORMAL COMMENTS: 1. SEVERE THICKENING OF THE RIGHT AORTIC VALVE CUSP, WHICH MIGHT REPRESENT A VEGETATION, VALVE LEAFTLET PERFORATION OR ROOT ABCESS CAN NOT BE EXCLUDED. 2. NORMAL LEFT VENTRICULAR SYSTOLIC FUNCTION TECHNOLOGIST: MIKEY DE [facility]
[2023-10-25] MEDS: PROPRANOLOL HCL 40 MG TAB PO SCH (14:29)
[2023-10-25] MEDS ORDERED: CALAMINE LOTION 180ML TOP PRN (15:00)
[2023-10-26] MEDS ORDERED: MIDAZOLAM HCL 2 MG/2 ML INJ ONE (06:57)
[2023-10-26] MEDS ORDERED: FENTANYL CITR 100 MCG/2 ML ONE (06:57)
[2023-10-26] MEDS ORDERED: FLUMAZENIL 0.1 MG/ML (5 mL VIAL) IV ONE (06:58)
[2023-10-26] MEDS ORDERED: AMIODARONE IN DEXTROSE,ISO-OSM 0 MG/0 ML BAG IV ONE (06:58)
[2023-10-26] MEDS ORDERED: METOPROLOL TARTRATE 5 MG/5 ML INJ IV ONE (06:58)
[2023-10-26] MEDS ORDERED: MIDAZOLAM HCL 0 ML ONE (06:58)
[2023-10-26] MEDS ORDERED: ATROPINE SULF 1 MG/10 ML SYR IV ONE (06:58)
[2023-10-26] MEDS ORDERED: HYDRALAZINE HCL 20 MG/ML VIAL ONE (06:58)
[2023-10-26] MEDS ORDERED: Phenylephrine HCl 10 MG/ML 1 ML VIAL ONE (06:59)
[2023-10-26] MEDS: NA CHLORIDE 0.9% 500 ML ONE (07:52)
[2023-10-26 07:58] LABS: Absolute Eosinophils 0.1 K/uL (0-0.5); Absolute Lymphocytes (CBC) 0.9 K/uL (0.7-4.9); Absolute Monocytes 0.8 K/uL (0.1-1.3); Absolute Neutrophil 4.2 K/uL (1.8-8.0); Basophils % 0.5 % (0-1.3); Eosinophils % 1.8 % (0-4.4); Hematocrit 31.2 % (39.6-49.0); Hemoglobin 10.9 g/dL (13.6-17.9); Lymphocytes % 15.1 % (15.3-44.8); MCHC 34.9 g/dL (32.0-36.0); MCV 91.7 fL (80-100); MPV 7.8 fL (7.6-11.3); Monocytes % 13.6 % (3.3-12.3); Nucleated Red Blood Cells % 0.1 % (0-0); Platelets 124 thou/uL (152-406); Red Cell Distribution Width 15.3 % (12.1-15.2)
[2023-10-26 08:15] LABS: Albumin 2.7 g/dL (3.4-5.0); Albumin/Globulin Ratio 0.8 (1.1-1.8); Bilirubin Total 1.1 mg/dL (0.2-1.0); C-Reactive Protein 42.3 mg/L (<3.00); Globulin 3.6 g/dL (2.3-3.5); Magnesium 2.2 mg/dL (1.6-2.4); Protein, Total 6.3 g/dL (6.4-8.2)
[2023-10-26] MEDS ORDERED: HOME MED 1 EA UNK (Lactulose [Lactulose] 10 GM/15 ML Solution) PO SCH (09:00)
--- NOTE | 2023-10-26 10:30 | P.PN ---
Date of Service: 10/26/23 Subjective: Feels lower extremity swelling/erythema/tenderness is improving compared to yesterday ENMA canceled per cardio no acute events overnight afebrile ROS: 10 point ROS as noted above, otherwise negative Physical Exam: GEN: Alert, oriented, NAD HEENT: Normal conjunctiva, sclera anicteric CV: Regular rate and rhythm, +systolic murmur Pulm: Nonlabored respirations on room air, clear bilaterally ABD: Soft, nontender, nondistended Integumentary: improving erythema/warmth/swelling from R posterior thigh to R ankle with induration. No drainage, no open wounds Neuro: Normal speech, normal affect vitals reviewed Problem List: Right lower extremity cellulitis Cirrhosis in patient with Hepatitis C - now s/p treatment Portal Hypertension with Esophageal Varices Hx DVT of left lower extremity venous insufficiency Pansystolic murmur h/o empyema Right lower extremity cellulitis s/p clindamycin x2 days prior to this admission reported symptoms worsened since ED visit so he came back venous u/s (10/21): no DVT in either extremities continue empiric merrem / vanc (10/24-) Follow blood cultures - NGTD since 10/23 ID consulted Keep legs elevated. Cirrhosis in patient with Hepatitis C - now s/p treatment Portal Hypertension Esophageal Varicies treated for hep c in 2010. Patient unsure how he initially got it. continue home lactulose, propranolol, potassium chloride continue PO lasix; takes 80 mg in morning and 40mg at night has upcoming EGD planned for 11/01/23 Hx DVT of left lower extremity venous insufficiency No DVT seen on venous ultrasound from ER visit 2 days ago resume home eliquis Pansystolic murmur Echo 61% EF, severe thickening of the right aortic valve cusp which might represent a vegetation. valve leaflet perforation / abscess cannot be excluded discussed with Dr. Werner yesterday, recommended ENMA however was canceled today per Dr. Drew after prior echo report reviewed prior echo done >5 years ago noted some thickening of bicuspid aortic valve at that time no clinical signs of endocarditis at this time. blood cultures without growth at this time Dr. Drew recommends patient gets his valve repaired soon, consider repeat echo Sunday monitor on telemetry VTE: home eliquis Code: Full Dispo: Home, ~ 2 days pending blood cultures / cardiac recs
--- NOTE | 2023-10-26 13:12 | CON ---
Date of Consultation: 10/26/2023 Reason For Consultation: Evaluation of possible endocarditis. History Of Present Illness: A 53-year-old male with past medical history of hepatitis C, liver cirrh osis, esophageal varices, portal hypertension, and peripheral neuropathy, presented with cellulitis o f right lower extremity, redness, pain and local warmness, and low-grade fever. On echo, there is he avily calcified aortic valve and there was concern for possible endocarditis, hence I was consulted, seen by bedside. He used to use drugs as per his report. Last time he used drugs was more than 8 mo nths ago. Past Medical History: As outlined above in HPI. Medications: Refer reconciliation sheet for detailed list. Allergies: BACTRIM, CEPHALEXIN, SPIRONOLACTONE, TRAMADOL. Family History: No premature coronary artery disease or cancer. Social History: He is an ex-smoker, ex-drug user, and does not use alcohol on regular basis. Review of Systems: All systems reviewed, they are negative except mentioned in HPI. Physical Examination: Vital Signs: Reviewed. Head and Neck: Pupils are equal, reactive to light. Intact eye movements. No JVD. No cervical lym phadenopathy. Neck is supple. Thyroid is not enlarged. Lungs: Clear to auscultation bilaterally. No rhonchi, rales, or crackles. No accessory muscle use. Heart: Regular rate and rhythm with ejection systolic murmur in the aortic area. Abdomen: Soft, nontender. Bowel sounds positive. No organomegaly. No masses or hernia. No rigidi ty or rebound. Extremities: There is local warmness and redness involving the right lower extremity from the knee a ll the way down. Neurologic: Alert, awake, oriented x3. No acute focal deficits appreciated. Lymph nodes: No cervical or axillary lymphadenopathy. Investigations: BUN 16, creatinine 0.81, hemoglobin is 10.9, white blood cell count 6000. Assessment/recommendation: 1.Severe aortic valve stenosis and [id number] regurgitation. Reviewed the echo myself. It is heavily calcified valve, likely bicuspid aortic valve that degenerated. I do not see evidence of ve getation. ENMA was ordered initially. I canceled it due to the presence of portal hypertension and e sophageal varices. At this point, he needs this valve replaced. Recommend to continue the managemen t for cellulitis. Once the infection is not controlled, the patient is to have aortic valve replacem ent. 2.Congestive heart failure, probably due to severe , on diuretics. Carefully monitor BUN, creatin ine, electrolytes. 3.Cellulitis of lower extremity, on wide-spectrum antibiotics. SR/MODL Voice ID: [id number] Report ID: [id number]
[2023-10-27 03:40] LABS: Anion Gap 7.8 mEq/L (5.0-15.0); C-Reactive Protein 25.5 mg/L (<3.00); Magnesium 2.1 mg/dL (1.6-2.4); Potassium 3.8 mEq/L (3.5-5.1)
--- NOTE | 2023-10-27 07:43 | P.PN ---
Date of Service: 10/27/23 Subjective: erythema/swelling of R lower extremity continues to improve daily discussed with patient need to be eval for valve replacement in near future. denies any new / worsening problems ambulating without issues afebrile ROS: 10 point ROS as noted above, otherwise negative Physical Exam: GEN: Alert, oriented, NAD HEENT: Normal conjunctiva, sclera anicteric CV: Regular rate and rhythm, +systolic murmur Pulm: Nonlabored respirations on room air, clear bilaterally ABD: Soft, nontender, nondistended Integumentary: improving erythema/warmth/swelling from R posterior thigh to R ankle with less induration. No drainage, no open wounds Neuro: Normal speech, normal affect vitals reviewed Problem List: Right lower extremity cellulitis Bicuspid aortic valve with severe aortic valve stenosis Pansystolic murmur Cirrhosis in patient with Hepatitis C - now s/p treatment Portal Hypertension with Esophageal Varices Hx DVT of left lower extremity venous insufficiency h/o empyema Right lower extremity cellulitis s/p clindamycin x2 days prior to this admission reported symptoms worsened since ED visit so he came back venous u/s (10/21): no DVT in either extremities continue empiric merrem / vanc (10/24-) CRP improving Follow blood cultures - NGTD since 10/[address] Drew, continue IV abx until Sunday and repeat focused echo Sunday to reeval valve given risk factors ID consulted Keep legs elevated. erythema/warmth/swelling of R lower extremity continues to improve daily. Bicuspid aortic valve with severe aortic valve stenosis Pansystolic murmur Echo 61% EF, severe thickening of the right aortic valve cusp which might represent a vegetation. valve leaflet perforation / abscess cannot be excluded discussed with Dr. Werner 10/24, recommended ENMA however was canceled yesterday per Dr. Drew after prior echo report reviewed prior echo done >5 years ago noted some thickening of bicuspid aortic valve at that time no clinical signs of endocarditis at this time. blood cultures without growth at this time Dr. Drew recommends patient gets his valve repaired soon, consider repeat focused echo Sunday monitor on telemetry Cirrhosis in patient with Hepatitis C - now s/p treatment Portal Hypertension Esophageal Varicies treated for hep c in 2010. Patient unsure how he initially got it. continue home lactulose, propranolol, potassium chloride continue PO lasix; takes 80 mg in morning and 40mg at night has upcoming EGD planned for 11/01/23 Hx DVT of left lower extremity venous insufficiency No DVT seen on venous ultrasound from ER visit 2 days ago continue home eliquis VTE: home eliquis Code: Full Dispo: Home, ~2 days pending repeat echo on Sunday / cardiac recs
[2023-10-27] MEDS: Meropenem 1000 MG/VIAL IV ONE ×2 (08:55→09:03)
--- NOTE | 2023-10-27 10:29 | PN ---
Date of Progress Note: 10/27/2023 Subjective: Seen at bedside, doing clinically well. No fever. Redness in lower extremities improvi ng. Blood cultures are negative so far. Review of Systems: No chest pain, shortness of breath, orthopnea, cough. No nausea, vomiting, diarrhea. All other syst ems reviewed are negative. Objective: Vital signs: Reviewed. Head and Neck: Pupils are equal, reactive to light. Intact eye movements. No JVD. No cervical lym phadenopathy. Neck is supple. Thyroid is not enlarged. Lungs: Clear to auscultation bilaterally. No rhonchi, rales, or crackles. No accessory muscle use. Heart: Regular rate and rhythm with an aortic ejection systolic murmur. Abdomen: Soft, nontender. Bowel sounds positive. No organomegaly. No masses or hernia. No rigidi ty or rebound. Extremities: No edema, clubbing, cyanosis. Intact pulses. Skin: No rashes. Neurologic: Alert, awake, oriented x3. No acute focal deficits appreciated. Investigations: Labs were reviewed. Assessment/recommendation: 1.Bicuspid aortic valve with severe aortic valve stenosis and mild regurgitation. Needs valve repla cement. I do not believe there is endocarditis as there is no fever. Blood cultures are negative. I would recommend to repeat focused echo on Sunday to evaluate aortic valve again and make sure there is no vegetation developed. 2.Left lower extremity. Continue on wide-spectrum IV antibiotics. 3.Aortic valve stenosis, severe and needs valve replacement. We will arrange for it as an outpatient once his infection is under control. /MODL Voice ID: [id number] Report ID: [id number]
[2023-10-27] MEDS: APIXABAN 2.5 MG TABLET PO SCH (10:48)
[2023-10-28 04:08] LABS: Absolute Basophils 0.1 K/uL (0-0.5); Absolute Eosinophils 0.5 K/uL (0-0.5); Absolute Lymphocytes (CBC) 1.1 K/uL (0.7-4.9); Absolute Monocytes 0.8 K/uL (0.1-1.3); Absolute Neutrophil 2.4 K/uL (1.8-8.0); Basophils % 1.1 % (0-1.3); Eosinophils % 10.2 % (0-4.4); Hematocrit 32.9 % (39.6-49.0); Hemoglobin 11.3 g/dL (13.6-17.9); Lymphocytes % 23.1 % (15.3-44.8); MCH 31.8 pg (27.0-35.0); MCHC 34.4 g/dL (32.0-36.0); MCV 92.3 fL (80-100); MPV 8.1 fL (7.6-11.3); Monocytes % 16.9 % (3.3-12.3); Neutrophils % 48.7 % (41.7-73.7); Nucleated Red Blood Cells % 0.1 % (0-0); Platelets 129 thou/uL (152-406); RBC Red Blood Cell Count 3.57 M/uL (4.33-5.43); Red Cell Distribution Width 15.4 % (12.1-15.2)
[2023-10-28 04:32] LABS: Anion Gap 7.1 mEq/L (5.0-15.0); C-Reactive Protein 15.8 mg/L (<3.00); Potassium 4.1 mEq/L (3.5-5.1)
--- NOTE | 2023-10-28 11:21 | P.PN ---
Date of Service: 10/28/23 Subjective: R lower extremity significantly improved, still with some slight discoloration but warmth/swelling almost completely resolved no acute events overnight stable, no new issues afebrile ROS: 10 point ROS as noted above, otherwise negative Physical Exam: GEN: Alert, oriented, NAD HEENT: Normal conjunctiva, sclera anicteric CV: Regular rate and rhythm, +systolic murmur Pulm: Nonlabored respirations on room air, clear bilaterally ABD: Soft, nontender, nondistended Integumentary: R lower extremity significantly improved, still with some slight discoloration but warmth/swelling almost completely resolved. No drainage, no open wounds Neuro: Normal speech, normal affect vitals reviewed Problem List: Right lower extremity cellulitis Bicuspid aortic valve with severe aortic valve stenosis Pansystolic murmur Cirrhosis in patient with Hepatitis C - now s/p treatment Portal Hypertension with Esophageal Varices Hx DVT of left lower extremity venous insufficiency h/o empyema Right lower extremity cellulitis s/p clindamycin x2 days prior to this admission reported symptoms worsened since ED visit so he came back venous u/s (10/21): no DVT in either extremities continue empiric merrem / vanc (10/24-) CRP improving Follow blood cultures - NGTD since 10/[address] Drew, continue IV abx until Sunday and repeat focused echo Sunday to reeval valve given risk factors ID consulted Keep legs elevated. R lower extremity significantly improved; slight discoloration still but improving daily Bicuspid aortic valve with severe aortic valve stenosis Pansystolic murmur Echo 61% EF, severe thickening of the right aortic valve cusp which might represent a vegetation. valve leaflet perforation / abscess cannot be excluded discussed with Dr. Werner 10/24, recommended ENMA however was canceled yesterday per Dr. Drew after prior echo report reviewed prior echo done >5 years ago noted some thickening of bicuspid aortic valve at that time no clinical signs of endocarditis at this time. blood cultures without growth at this time Dr. Drew recommends patient gets his valve repaired soon, consider repeat focused echo Sunday monitor on telemetry Cirrhosis in patient with Hepatitis C - now s/p treatment Portal Hypertension Esophageal Varicies treated for hep c in 2010. Patient unsure how he initially got it. continue home lactulose, propranolol, potassium chloride continue PO lasix; takes 80 mg in morning and 40mg at night has upcoming EGD planned for 11/01/23 Hx DVT of left lower extremity venous insufficiency No DVT seen on venous ultrasound from ER visit 2 days ago continue home eliquis VTE: home eliquis Code: Full Dispo: Home, ~1 day pending repeat echo on Sunday / cardiac recs
[2023-10-29 06:20] LABS: Magnesium 2.4 mg/dL (1.6-2.4)
--- NOTE | 2023-10-29 08:54 | P.PN ---
Date of Service: 10/29/23 Chief Complaint: Cellulitis of the right lower extremity from the thigh to the ankle Subjective: In no apparent distress. RLE erythema resolved. No new or worsening complaints at this time. Physical Examination Temp Pulse Resp BP Pulse Ox 98.5 F 62 20 123/53 L 96 10/29/23 04:00 10/29/23 04:00 10/29/23 04:00 10/29/23 04:00 10/29/23 04:00 General: NAD. A&Ox3. HEENT: normocephalic, atraumatic. Respiratory: clear to auscultation bilaterally Cardiovascular: RRR. no edema. Gastrointestinal: soft, nontender. normoactive bowel sounds. Integumentary: no rashes. RLE erythema resolved. Laboratory Data - Reviewed Microbiology Data - Reviewed Imagings Data: - Reviewed Assessment and Plan Problem List Cellulitis, Right Lower Extremity Cirrhosis Portal Hypertension Hx DVT of left lower extremity Esophageal Varicies Cellulitis of Right Lower Extremity - Patient was precribed Clindamycin PO 2 days prior to returning to the ED for worsening RLE erythema,tenderness,warmth with extension from thigh down to ankle. - Venous study 10/21: No sonographic evidence of left or right lower extremity deep venous thrombosis - Currently on Meropenem and Vancomcyin (started 10/24-) Blood cultures 10/23: no growth to date Afebrile Recommendations - Cellulitis: Continue antibiotic therapy for 10-14 days. Currently on Meropenem and Vancomycin,Consider switch to Ciprofloxacin and Doxycycline PO x 7 days upon discharge. - Monitor CBC, BMP, Vanco trough - Keep leg elevated - continue supportive care Case discussed with Nessa Nails
[2023-10-29 12:57] VITALS: BP 126/59; TEMP 98.4
--- NOTE | 2023-10-29 13:09 | P.DS ---
Admission Date: 10/24/23 Discharge Date: 10/29/23 Disposition: ROUTINE DISCHARGE Discharge Condition: GOOD Reason for Admission: Cellulitis of the right lower extremity from the thigh to the ankle Consultations: Cardiology- Dr. Drew Infectious Disease - Dr. Betancourt Brief History of Present Illness: 53-year-old gentleman who came to the hospital with cellulitis of the right lower extremity. Patient was just in the emergency room a couple of days ago with significant erythema. Patient was discharged home on oral antibiotics. Patient was worried he had a venous thrombosis; however, venous Doppler was negative. Patient's erythema spread from the thigh all the way down to the ankle. Patient came into the emergency room as he was getting significantly worse. In the ER, patient had a repeat venous Doppler which did not show DVT in the right leg. At this time, patient will be admitted to the hospital for cellulitis of the right lower extremity with extension from the thigh all the way to the ankle. This is crossing multiple joints and patient needs to be admitted for inpatient hospitalization. Patient has a history of hepatitis C that was diagnosed in the early . Patient is unsure as to how he got hepatitis C. He thought it may have been from needles from getting a tattoo. Patient's liver disease worsened, and he was diagnosed with cirrhosis. In 2010, he was treated for the hepatitis C. Patient states that the virus is undetectable. Patient has been on medication for cirrhosis. Patient has also been found to have esophageal varices. Hospital Course: Problem List: Right lower extremity cellulitis Bicuspid aortic valve with severe aortic valve stenosis Cirrhosis in patient with Hepatitis C - now s/p treatment Portal Hypertension with Esophageal Varices Hx DVT of left lower extremity venous insufficiency h/o empyema Patient presented with lower extremity erythema, swelling, warmth and was found to have cellulitis of the right lower extremity. Patient recently seen in ED ~2 days prior, was given prescription for clindamycin, and reports condition worsened. Patient was started on empiric merrem / vanc and had improvement of his symptoms. Blood cultures have been without growth since 10/23. Discussed with ID, patient is to complete ~1 week of ciprofloxacin and doxycycline on discharge. Patient was feeling better, R lower extremity significantly improved, afebrile without leukocytosis, and was deemed stable for discharge. During his hospitalization, echo was obtained to eval for endocarditis and noted 61% EF, severe thickening of the right aortic valve cusp which might represent a vegetation. Discussed with Dr. Drew, cardiology, who recommended to continue IV antibiotics over the weekend and get repeat echo to reeval valve given patients risk factors. Repeat echo on 10/28 was unchanged and stable for discharge. Cardiology recommended close follow up to arrange repair/replacement of his aortic valve. (bicuspid valve with severe aortic valve stenosis) Medications: ciprofloxacin and doxycycline x1 week continue other home medications as previously prescribed with exception of clindamycin Do not take clindamycin that was prescribed a few days ago as you will be on ciprofloxacin and doxycycline instead. Follow up: PCP 3-5 days Cardiology 1-2 weeks Please call to schedule / confirm appointment Physical Exam: GEN: Alert, oriented, NAD HEENT: Normal conjunctiva, sclera anicteric CV: Regular rate and rhythm, +systolic murmur Pulm: Nonlabored respirations on room air, clear bilaterally ABD: Soft, nontender, nondistended Integumentary: R lower extremity without induration, no erythema Neuro: Normal speech, normal affect Vital Signs/Physical Exam: Temp Pulse Resp BP Pulse Ox 98.4 F 61 16 126/59 L 96 10/29/23 12:00 10/29/23 12:00 10/29/23 12:00 10/29/23 12:00 10/29/23 12:00 Laboratory Data at Discharge: WBC 4.90 thou/uL (4.3-10.9) 10/28/23 03:17 Hgb 11.3 g/dL (13.6-17.9) L 10/28/23 03:17 Hct 32.9 % (39.6-49.0) L 10/28/23 03:17 Plt Count 129 thou/uL (152-406) L 10/28/23 03:17 PT 14.8 SECONDS (9.5-12.5) H 10/25/23 00:36 INR 1.36 10/25/23 00:36 APTT 36.4 SECONDS (24.3-36.9) 10/25/23 00:36 Sodium 138 mEq/L (136-145) 10/29/23 05:50 Potassium 4.0 mEq/L (3.5-5.1) 10/29/23 05:50 BUN 18 mg/dL (7-18) 10/29/23 05:50 Creatinine 0.73 mg/dL (0.70-1.30) 10/29/23 05:50 Glucose 119 mg/dL (74-106) H 10/29/23 05:50 Magnesium 2.4 mg/dL (1.6-2.4) 10/29/23 05:50 Total Bilirubin 1.1 mg/dL (0.2-1.0) H 10/26/23 07:17 AST 35 U/L (15-37) 10/26/23 07:17 ALT 34 U/L (16-61) 10/26/23 07:17 Alkaline Phosphatase 112 U/L (45-117) 10/26/23 07:17 Home Medications: Apixaban [Eliquis *] 2.5 mg PO BID 10/24/23 Furosemide 40 mg PO SEECOM 10/24/23 Gabapentin 300 mg PO TID 10/24/23 Lactulose 30 gm PO DAILY 10/24/23 Potassium Chloride 10 meq PO DAILY 10/24/23 Propranolol [Inderal*] 40 mg PO TID 10/24/23 Ciprofloxacin HCl [Cipro] 500 mg PO BID 7 Days #14 tab 10/29/23 Doxycycline Hyclate 100 mg PO BID 7 Days #14 tab 10/29/23 New Medications: Ciprofloxacin HCl [Cipro] 500 mg PO BID 7 Days #14 tab Doxycycline Hyclate 100 mg PO BID 7 Days #14 tab Physician Discharge Instructions: Physician Discharge Instructions: Patient presented with lower extremity erythema, swelling, warmth and was found to have cellulitis of the right lower extremity. Patient recently seen in ED ~2 days prior, was given prescription for clindamycin, and reports condition worsened. Patient was started on empiric merrem / vanc and had improvement of his symptoms. Blood cultures have been without growth since 10/23. Discussed with ID, patient is to complete ~1 week of ciprofloxacin and doxycycline on discharge. Patient was feeling better, R lower extremity significantly improved, afebrile without leukocytosis, and was deemed stable for discharge. During his hospitalization, echo was obtained to eval for endocarditis and noted 61% EF, severe thickening of the right aortic valve cusp which might represent a vegetation. Discussed with Dr. Drew, cardiology, who recommended to continue IV antibiotics over the weekend and get repeat echo to reeval valve given patients risk factors. Repeat echo on 10/28 was unchanged and stable for discharge. Cardiology recommended close follow up to arrange repair/replacement of his aortic valve. (bicuspid valve with severe aortic valve stenosis) Medications: ciprofloxacin and doxycycline x1 week continue other home medications as previously prescribed with exception of clindamycin Do not take clindamycin that was prescribed a few days ago as you will be on ciprofloxacin and doxycycline instead. Follow up: PCP 3-5 days Cardiology 1-2 weeks Please call to schedule / confirm appointment Followup: [facility] [UNKNOWN] - Deonte Drew MD [ACTIVE - CAN ADMIT] - 1-2 Weeks (Call for appointment) Time spent managing pt's care (in minutes): 35
[2023-10-29] MEDS: VANCOMYCIN 2 GM in NA CHLORIDE 0.9% 500 ML IVPB SCH (13:18)
--- NOTE | 2023-10-29 18:39 | PN ---
Date of Progress Note: 10/29/2023 Subjective: Seen by bedside, doing clinically well. No erythema of the leg, completely healed. Review of Systems: No chest pain, shortness of breath, orthopnea, cough. No nausea, vomiting, diarrhea. All other syst ems reviewed are negative. Physical Examination: Vital Signs: Reviewed. Head and Neck: Pupils are equal, reactive to light. Intact eye movements. No JVD. No cervical lym phadenopathy. Neck: Supple. Thyroid is not enlarged. Lungs: Clear to auscultation bilaterally. No rhonchi, rales, or crackles. No accessory muscle use. Heart: Regular rate and rhythm. No extra sounds. Abdomen: Soft, nontender. Bowel sounds positive. No organomegaly. No masses or hernia. No rigidi ty or rebound. Extremities: No edema, clubbing, cyanosis. Intact pulses. Skin: No rash. Neuro: Alert, awake, oriented x3. No acute focal deficits appreciated. Investigations,: BUN 18, creatinine 0.73. Assessment/recommendation: 1.Cellulitis of lower extremities. No evidence of endocarditis and cultures of the blood were negat kirit. Echo just showing significant aortic valve stenosis. See below. 2.Aortic valve stenosis, severe, likely bicuspid aortic valve. Recommend evaluation as an outpatien t for valve replacement surgery and he needs to be checked for aortic aneurysms. Patient understands the above. 3.Bicuspid aortic valve. He needs aorta CT scan to make sure he does not have any aneurysms as he h as bicuspid aortic valve likely. The patient understands and he will follow as an outpatient post discharge. /CHAYA Voice ID: [id number] Report ID: [id number]
--- NOTE | 2023-10-30 07:10 | ECHO ---
HEIGHT: 6 ft 1 in WEIGHT: 271 lb 11.2 oz DATE OF STUDY: 10/29/[address]: Brent Esqueda MD 2-DIMENSIONAL: YES M.MODE: YES DOPPLER: YES COLOR FLOW: YES TDS: PORTABLE: YES DEFINITY: BUBBLE STUDY: DIAGNOSIS: FOCUSED ECHOCARDIOGRAM ON AORTIC VALVE/ AORTIC ROOT CARDIAC HISTORY: CATHERIZATION: SURGERY: PROSTHETIC VALVE: PACEMAKER: MEASUREMENTS (cm) DIASTOLIC (NORMALS) SYSTOLIC (NORMALS) IVSd 1.1 (0.6-1.2) LA Diam 4.5 (1.9-4.0) LVEF 68% LVIDd 5.5 (3.5-5.7) LVIDs 3.4 (2.0-3.5) %FS 39% LVPWd 1.2 (0.6-1.2) Ao Diam 2.6 (2.0-3.7) 2 DIMENSIONAL ASSESSMENT: RIGHT ATRIUM: LEFT ATRIUM: RIGHT VENTRICLE: LEFT VENTRICLE: TRICUSPID VALVE: MITRAL VALVE: PULMONIC VALVE: AORTIC VALVE: PERICARDIAL EFFUSION: AORTIC ROOT: LEFT VENTRICULAR WALL MOTION: DOPPLER/COLOR FLOW: COMMENTS: 1. FOCUSED ECHOCARDIOGRAM ONLY 2. HEAVILY CALCIFIED AORTIC VALVE WITH SEVERE AORTIC STENOSIS (LIKELY BICUSPID AORTIC VALVE) 3. MILD AORTIC INSUFFICIENCY 4. NO VEGETATION TECHNOLOGIST: ANAT BASS
== END 2023-10-29 16:15 | disposition home or self-care (01) | DRG 603 ==
LOC: ER 20:20 → ERHOLD 23:35 → 4TH 10-25 00:32
PROVIDERS: ADMIT Hospitalist; ATTEND Hospitalist
DX: L03.115 Cellulitis of right lower limb (principal); K76.6 Portal hypertension; I85.10 Secondary esophageal varices without bleeding; K74.60 Unspecified cirrhosis of liver; I73.9 Peripheral vascular disease, unspecified; I35.1 Nonrheumatic aortic (valve) insufficiency; I87.2 Venous insufficiency (chronic) (peripheral); I50.9 Heart failure, unspecified; I35.0 Nonrheumatic aortic (valve) stenosis; B19.20 Unspecified viral hepatitis C without hepatic coma; R01.1 Cardiac murmur, unspecified; Z88.1 Allergy status to other antibiotic agents; Z88.5 Allergy status to narcotic agent; Z79.01 Long term (current) use of anticoagulants; Z79.899 Other long term (current) drug therapy; Z86.718 Personal history of other venous thrombosis and embolism
CPT/HCPCS: 36415; 80048; 80053; 80202; 82947; 83735; 85025; 85610; 85730; 86140; 87040; 93306; 96365; 96366; 96375; 99284; J0282; J0360; J0461; J1200; J2185; J2250; J2270; J2371; J2405; J2920; J3010; J7030; J7040; J7050

== ENCOUNTER 2024-07-31 21:28 | Emergency (ER) | payer OTHER ==
--- NOTE | 2024-07-31 22:05 | EDPHYS ---
Physician Documentation [facility] Name: Howie ePdroza Age: 54 yrs Sex: Male : 1970 Arrival Date: 07/31/2024 Time: 21:28 Bed IW2 Private MD: ED Physician Shola Bolaños HPI: 08/01 00:10 This 54 yrs old Male presents to ER via Ambulatory with complaints of TOE sb4 PAIN/PROBLEM-POSSIBLY WART. 00:10 plantar wart on distal right 2nd toe for 6 months. became painful tonight. states that sb4 he has "cut it out" a few times now but it keeps coming back. he has also tried putting antibiotic ointment on it without any improvement in symptoms. no fever or chills. Historical: - Allergies: 07/31 21:57 Bactrim; lg3 21:57 Keflex; lg3 21:57 Tramadol HCl; lg3 - Home Meds: 21:57 Tylenol #3 Oral [Active]; Eliquis 2.5 mg oral tablet 2 times per day [Active]; lg3 - PMHx: 21:57 DVT; Hepatitis C; Liver cirrhosis (PVD); PVD; lg3 - PSHx: 21:57 back; lg3 - Immunization history:: Adult Immunizations up to date. - Infectious Disease History:: Denies. - Social history:: Smoking status: Patient denies any tobacco usage or history of. Patient/guardian denies using alcohol, street drugs. ROS: 08/01 00:10 Constitutional: Negative for fever, chills, and weight loss, sb4 Skin: Positive for per HPI, All other systems are negative, Exam: 00:10 Constitutional: This is a well developed, well nourished patient who is awake, alert, sb4 and in no acute distress. Head/Face: Normocephalic, atraumatic. Eyes: Extra-ocular motions intact. Periorbital areas with no swelling, redness, or edema. ENT: Mucous membranes moist. Respiratory: No increased work of breathing, no retractions or nasal flaring. 00:10 Skin: lesion(s), wart, located on the plantar aspect of right second toe, Vital Signs: 07/31 21:56 BP 154 / 73; Pulse 69; Resp 17 S; Temp 98.2(O); Pulse Ox 100% on R/A; Weight 123.38 kg lg3 (R); Height 6 ft. 1 in. (R); Pain 6/10; 21:56 Body Mass Index 35.89 (123.38 kg, 185.42 cm) lg3 21:56 Pain Scale: Adult lg3 MDM: 22:00 Medical Screening Exam initiated sb4 08/01 00:10 Data reviewed: vital signs, nurses notes, and as a result, I will discharge patient. sb4 Test considered but Not performed: X-ray: foot xray not indicated, no evidence of infection. Care significantly affected by the following chronic conditions: liver disease. Counseling: I had a detailed discussion with the patient and/or guardian regarding the historical points, exam findings, and any diagnostic results supporting the discharge/admit diagnosis, the need for outpatient follow up, a x ray operator, to return to the emergency department if symptoms worsen or persist or if there are any questions or concerns that arise at home. Administered Medications: No medications were administered Disposition: 21:02 Co-signature as Attending Physician, Shola Bolaños MD I agree with the assessment sp4 and plan of care. I reviewed the patient's care provided by the Advanced Practice Provider and agree with the diagnosis and treatment plan. Disposition Summary: 07/31/24 22:05 Discharge Ordered Notes: Location: Home sb4 Problem: an ongoing problem sb4 Symptoms: are unchanged sb4 Condition: Stable sb4 Diagnosis - Plantar wart sb4 Followup: sb4 - With: Nathan Kennedy DPM - When: 1 week - Reason: Recheck today's complaints, Re-evaluation by your physician Discharge Instructions: - Discharge Summary Sheet sb4 - Plantar Warts sb4 Forms: - Patient Portal Instructions sb4 - Leadership Thank You Letter sb4 Prescriptions: - Compound W 17 % Topical liquid - apply 1 application TOPICAL route every day in the morning and at bedtime; 1 sb4 Applicator; Refills: 0, Product Selection Permitted Signatures: Diane Babb RN RN lg3 Cecile Pugh PA-C PA-C sb4 Shola Bolaños MD MD sp4 Corrections: (The following items were deleted from the chart) 00:11 00:10 plantar wart on . sb4 sb4
--- NOTE | 2024-07-31 22:05 | ER ---
Nurse's Notes [facility] Name: Howie Pedroza Age: 54 yrs Sex: Male : 1970 Arrival Date: 07/31/2024 Time: 21:28 Bed IW2 Private MD: Diagnosis: Plantar wart Presentation: 07/31 21:56 Chief complaint: Patient states: i think i have a plantar's wart on the tip of my 2nd lg3 toe on my right foot. started 6 months ago. Coronavirus screen: Client denies travel out of the [place] in the last 14 days. At this time, the client does not indicate any symptoms associated with coronavirus-19. Ebola Screen: No symptoms or risks identified at this time. Initial Sepsis Screen: Does the patient meet any 2 criteria? No. Patient's initial sepsis screen is negative. Does the patient have a suspected source of infection? No. Patient's initial sepsis screen is negative. Risk Assessment: Do you want to hurt yourself or someone else? Patient reports no desire to harm self or others. Onset of symptoms is unknown. 21:56 Method Of Arrival: Ambulatory lg3 21:56 Acuity: KIMBERLEY 4 lg3 Triage Assessment: 21:57 General: Appears in no apparent distress. comfortable, Behavior is calm, cooperative. lg3 Pain: Complains of pain in Left second toenail. EENT: No deficits noted. No signs and/or symptoms were reported regarding the EENT system. Neuro: No deficits noted. Torres Agitation-Sedation Scale (RASS): 0 - Alert and Calm Level of Consciousness is awake, alert, obeys commands, Oriented to person, place, time, situation. Cardiovascular: No deficits noted. Denies chest pain, shortness of breath, Capillary refill < 3 seconds Clubbing of nail beds is absent JVD is absent Patient's skin is warm and dry. Respiratory: No deficits noted. Airway is patent Respiratory effort is even, unlabored, Respiratory pattern is regular, symmetrical. GI: No deficits noted. No signs and/or symptoms were reported involving the gastrointestinal system. : No signs and/or symptoms were reported regarding the genitourinary system. Derm: Reports pain that is 6 out of 10 on a pain scale. Musculoskeletal: No deficits noted. No signs and/or symptoms reported regarding the musculoskeletal system. Circulation, motion, and sensation intact. Range of motion: intact in all extremities. Historical: - Allergies: 21:57 Bactrim; lg3 21:57 Keflex; lg3 21:57 Tramadol HCl; lg3 - Home Meds: 21:57 Tylenol #3 Oral [Active]; Eliquis 2.5 mg oral tablet 2 times per day [Active]; lg3 - PMHx: 21:57 DVT; Hepatitis C; Liver cirrhosis (PVD); PVD; lg3 - PSHx: 21:57 back; lg3 - Immunization history:: Adult Immunizations up to date. - Infectious Disease History:: Denies. - Social history:: Smoking status: Patient denies any tobacco usage or history of. Patient/guardian denies using alcohol, street drugs. Screenin:12 [facility] ED Fall Risk Assessment (Adult) History of falling in the last 3 months, vc1 including since admission No falls in past 3 months (0 pts) Confusion or Disorientation No (0 pts) Intoxicated or Sedated No (0 pts) Impaired Gait No (0 pts) Mobility Assist Device Used No (0 pt) Altered Elimination No (0 pt) Score/Fall Risk Level 0 - 2 = Low Risk Oriented to surroundings, Maintained a safe environment, Educated pt \T\ family on fall prevention, incl call for assistance when getting out of bed. Abuse screen: Denies threats or abuse. Nutritional screening: No deficits noted. Tuberculosis screening: No symptoms or risk factors identified. Vital Signs: 21:56 BP 154 / 73; Pulse 69; Resp 17 S; Temp 98.2(O); Pulse Ox 100% on R/A; Weight 123.38 kg lg3 (R); Height 6 ft. 1 in. (R); Pain 6/10; 21:56 Body Mass Index 35.89 (123.38 kg, 185.42 cm) lg3 21:56 Pain Scale: Adult lg3 ED Course: 21:30 Patient arrived in ED. jj6 21:40 Cecile Pugh PA-C is PHCP. sb4 21:40 Shola Bolaños MD is Attending Physician. sb4 21:57 Triage completed. lg3 21:57 Arm band placed on right wrist. lg3 22:05 Nathan Kennedy DPM is Referral Physician. sb4 22:13 Patient has correct armband on for positive identification. treated from triage. vc1 Provided Education on: f/u with podiatry. 22:13 No provider procedures requiring assistance completed. Patient did not have IV access vc1 during this emergency room visit. Administered Medications: No medications were administered Medication: 22:13 VIS not applicable for this client. vc1 Outcome: 22:05 Discharge ordered by MD. sb4 22:13 Discharged to home ambulatory, vc1 22:13 Condition: good 22:13 Discharge instructions given to patient, Instructed on discharge instructions, follow up and referral plans. medication usage, Demonstrated understanding of instructions, follow-up care, medications, Prescriptions given X 1, 22:14 Patient left the ED. vc1 Signatures: Diane Babb RN RN lg3 Shi Portillo6 Layla Correa RN RN vc1 Cecile Pugh, PA-C PA-C sb4
[2024-08-01 04:46] VITALS: BP 154/73; TEMP 98.2; O2SAT 100
== END 2024-07-31 22:14 | disposition home or self-care (01) ==
LOC: ER 21:28
DX: B07.0 Plantar wart (principal); Z88.1 Allergy status to other antibiotic agents; Z88.5 Allergy status to narcotic agent
CPT/HCPCS: 99283

== ENCOUNTER 2025-03-05 18:18 | Inpatient (IN) | payer OTHER ==
[2025-03-05] MEDS ORDERED: ACETAMINOPHEN 500 MG TAB ONE (19:46)
[2025-03-05] MEDS ORDERED: ONDANSETRON 4 MG/2 ML VIAL ONE (19:46)
[2025-03-05] MEDS ORDERED: METHYLPREDNISOLONE 125 MG INJ ONE (19:46)
[2025-03-05] MEDS ORDERED: Meropenem 1000 MG/VIAL IV ONE (19:46)
[2025-03-05] MEDS ORDERED: DIPHENHYDRAMINE 50 MG/ML VIAL ONE (19:46)
[2025-03-05] MEDS ORDERED: NA CHLORIDE 0.9% 500 ML ONE (19:47)
[2025-03-05] MEDS ORDERED: NA CHLORIDE 0.9% 100 ML ONE (19:47)
[2025-03-05] MEDS ORDERED: VANCOMYCIN 1 GM/VIAL ONE (19:47)
[2025-03-05] MEDS ORDERED: MORPHINE 4 MG/ML SYR ONE (19:47)
[2025-03-05] MEDS ORDERED: ALBUMIN HUMAN 25% 100 ML IV ONE (19:48)
[2025-03-05 19:55] LABS: Absolute Lymphocytes (CBC) 0.7 K/uL (0.7-4.9); Hematocrit 31.8 % (39.6-49.0); Hemoglobin 10.8 g/dL (13.6-17.9); MCH 30.6 pg (27.0-35.0); MCHC 33.9 g/dL (32.0-36.0); MCV 90.2 fL (80-100); MPV 7.9 fL (7.6-11.3); Nucleated RBC Absolute Count 0.0 (0-0); Nucleated Red Blood Cells % 0.2 % (0-0); RBC Red Blood Cell Count 3.53 M/uL (4.33-5.43); White Blood Count 6.30 thou/uL (4.3-10.9)
[2025-03-05 20:05] LABS: PT Prothrombin Time 15.0 SECONDS (10-13.0); PTT, Activated Partial Thromb 36.9 SECONDS (27.2-37.4); Protime INR 1.34
[2025-03-05 20:14] LABS: ALT/SGPT 22.0 U/L (16-61); AST/SGOT 38.0 U/L (15-37); Albumin 2.6 g/dL (3.4-5.0); Albumin/Globulin Ratio 0.6 (1.1-1.8); Alkaline Phosphatase 92.0 U/L (45-117); Anion Gap 9.2 mEq/L (5.0-15.0); BUN Blood Urea Nitrogen 22.0 mg/dL (7-18); Globulin 4.6 g/dL (2.3-3.5); Glucose Level 100.0 mg/dL (74-106); NT PRO-BNP 736.0 pg/mL (<125); Potassium 3.2 mEq/L (3.5-5.1); Troponin High Sensitivity 6.9 pg/mL (<58.9)
--- NOTE | 2025-03-05 20:47 | RAD REPORT ---
EXAMINATION: US RIGHT LOWER EXTREMITY VENOUS DOPPLER CLINICAL INDICATION: [facility] MAIN Right leg swelling swelling right leg Bed Name: 13 N TECHNIQUE: Complete bilateral duplex sonography of the RIGHT lower extremity veins was performed. The examination included compression for vein patency, color Doppler imaging and flow augmentation in response to distal compression of the distal external iliac, common femoral, femoral, popliteal, tibi al, and great and small saphenous veins. COMPARISON: No prior exam. FINDINGS: Duplex sonography testing of the veins of the RIGHT lower extremity was performed. Color flow imaging shows all veins to be compressible with [id number] color filling. Pulsatile and phasic flow is present within all lower extremity deep and superficial veins examined. Incidentally noted well-circumscribed echogenic mass within the right inner thigh subcutaneous soft t issues measuring 3.4 x 2.3 x 1.4 cm, most compatible with a lipoma. IMPRESSION: No evidence of deep venous thrombosis. Incidentally noted right inner thigh 3.4 cm lipoma.
--- NOTE | 2025-03-05 20:47 | ER ---
Nurse's Notes [facility] Name: Howie Pedroza Age: 54 yrs Sex: Male : 1970 Arrival Date: 03/05/2025 Time: 18:18 Bed 13 Private MD: Diagnosis: Cellulitis of right lower limb;Acute right lower extremity cellulitis, acute right upper extremity maculopapular rash Presentation: 03/05 18:45 Chief complaint: Patient states: had covid last week and developed a rash to RUE, RLE, me1 chest and abdomen that is red, raised and warm. Patient was hospitalized about a month ago for cellulitis to RLE and sepsis and his RLE is red, warm, edematous and weeping like it was before. States there is a "hole by his knee that he was getting some black jelly looking drainage that stopped a few days ago and now there is a hard spot right here." points to right medial knee. Coronavirus screen: Vaccine status: Patient reports receiving the 2nd dose of the covid vaccine. Ebola Screen: No symptoms or risks identified at this time. Initial Sepsis Screen: Does the patient meet any 2 criteria? No. Patient's initial sepsis screen is negative. Does the patient have a suspected source of infection? No. Patient's initial sepsis screen is negative. Risk Assessment: Do you want to hurt yourself or someone else? Patient reports no desire to harm self or others. Onset of symptoms is unknown. 18:45 Method Of Arrival: Ambulatory me1 18:45 Acuity: KIMBERLEY 3 me1 Historical: - Allergies: 18:49 Bactrim; me1 18:49 Keflex; me1 18:49 Tramadol HCl; me1 18:49 Spironolactone; me1 - PMHx: 18:49 DVT; Hepatitis C; Liver cirrhosis (Unknown); PVD; me1 - PSHx: 18:49 back; me1 - Immunization history:: Adult Immunizations up to date. - Infectious Disease History:: Denies. - Social history:: Smoking status: Patient/guardian denies using tobacco, but has a distant history of tobacco abuse. - Family history:: not pertinent. Screenin:15 [facility] ED Fall Risk Assessment (Adult) History of falling in the last 3 months, cp4 including since admission No falls in past 3 months (0 pts) Confusion or Disorientation No (0 pts) Intoxicated or Sedated No (0 pts) Impaired Gait No (0 pts) Mobility Assist Device Used No (0 pt) Altered Elimination No (0 pt) Score/Fall Risk Level 0 - 2 = Low Risk Oriented to surroundings, Maintained a safe environment, Assessed \\T\\ reinforced patient's understanding of fall precautions, Hourly rounding (assess needs \\T\\ fall precautionary measures) done. Abuse screen: Denies threats or abuse. Denies injuries from another. Nutritional screening: No deficits noted. Tuberculosis screening: No symptoms or risk factors identified. Never had TB. Assessment: 19:15 General: Appears in no apparent distress. uncomfortable, Behavior is calm, cooperative, cp4 appropriate for age. Pain: Complains of pain in right arm and right leg Pain does not radiate. Pain currently is 7 out of 10 on a pain scale. 19:15 Neuro: Level of Consciousness is awake, alert, obeys commands, Oriented to person, cp4 place, time, situation. Cardiovascular: Patient's skin is warm and dry. Rhythm is sinus rhythm. Respiratory: Airway is patent Respiratory effort is even, unlabored. GI: No signs and/or symptoms were reported involving the gastrointestinal system. : No signs and/or symptoms were reported regarding the genitourinary system. EENT: No signs and/or symptoms were reported regarding the EENT system. Derm: Reports itching, pain. Musculoskeletal: No signs and/or symptoms reported regarding the musculoskeletal system. 20:15 Reassessment: Patient appears in no apparent distress at this time. Patient and/or cp4 family updated on plan of care and expected duration. Pain level reassessed. Patient is alert, oriented x 3, equal unlabored respirations, skin warm/dry/pink. 21:15 Reassessment: Patient appears in no apparent distress at this time. Patient and/or cp4 family updated on plan of care and expected duration. Pain level reassessed. Patient is alert, oriented x 3, equal unlabored respirations, skin warm/dry/pink. 22:15 Reassessment: Patient appears in no apparent distress at this time. Patient and/or cp4 family updated on plan of care and expected duration. Pain level reassessed. Patient is alert, oriented x 3, equal unlabored respirations, skin warm/dry/pink. Vital Signs: 18:45 BP 117 / 65; Pulse 68; Resp 20; Temp 98.7; Pulse Ox 100% ; Weight 124.28 kg; Height 6 me1 ft. 1 in. ; Pain 10/10; 20:00 BP 110 / 70; Pulse 67; Resp 18; Pulse Ox 100% ; cp4 21:00 BP 118 / 69; Pulse 69; Resp 18; Pulse Ox 99% ; cp4 22:00 BP 103 / 57; Pulse 74; Resp 18; Pulse Ox 99% ; cp4 22:58 BP 100 / 89; Pulse 73; Resp 18; Pulse Ox 99% ; cp4 18:45 Body Mass Index 36.15 (124.28 kg, 185.42 cm) me1 18:45 Pain Scale: Adult me1 [place] Coma Score: 20:42 Eye Response: spontaneous(4). Motor Response: obeys commands(6). Verbal Response: sp4 oriented(5). Total: 15. ED Course: 18:21 Patient arrived in ED. al6 18:49 Triage completed. me1 18:49 Arm band placed on Patient placed in waiting room. me1 19:15 Bed in low position. Call light in reach. Side rails up X2. cp4 19:15 No provider procedures requiring assistance completed. cp4 19:16 Shola Bolaños MD is Attending Physician. sp4 19:37 Inserted saline lock: 20 gauge in left antecubital area, using aseptic technique. Blood ts3 collected. Flushed with 10 mL NS. 19:40 Marguerite Hawkins is Primary Nurse. cp4 20:21 Extremity Venous Uni Ltd US In Process Unspecified. EDMS 20:36 Initial lab(s) drawn, by lab support technician, sent to lab. ts3 20:36 EKG done, by nurse tech. ts3 20:46 Chicho Villafana MD is Hospitalizing Provider. sp4 22:58 Patient admitted, IV remains in place. cp4 22:59 Provided Education on: admission. cp4 Administered Medications: 20:03 Drug: morphine IVP or IV 4 mg IVP once over 4 mins Route: IVP; Infused Over: 4 mins; cp4 Site: left antecubital; 20:30 Follow up: Response: No adverse reaction cp4 20:04 Drug: Acetaminophen PO 1000 mg PO once Route: PO; cp4 20:31 Follow up: Response: No adverse reaction cp4 20:04 Drug: Meropenem IV 1 grams IV at calculated rate once; (mix in NS 100 mL) Route: IV; cp4 Rate: calculated rate; Site: left antecubital; 20:31 Follow up: IV Status: Completed infusion cp4 20:04 Drug: diphenhydrAMINE IVP 25 mg IVP once Route: IVP; Site: left antecubital; cp4 20:30 Follow up: Response: No adverse reaction cp4 20:04 Drug: MethylPrednisoLONE IVP 125 mg IVP once Route: IVP; Site: left antecubital; cp4 20:30 Follow up: Response: No adverse reaction cp4 20:05 Drug: Ondansetron IVP 4 mg IVP once; over 2 minutes Route: IVP; Site: left antecubital; cp4 20:30 Follow up: Response: No adverse reaction cp4 20:05 Drug: Droperidol IVP 2.25 mg IVP once Route: IVP; Site: left antecubital; cp4 20:30 Follow up: Response: No adverse reaction cp4 20:31 Drug: Albumin IVPB 25 grams 100 ml IVPB once; (Note: Albumin 25% concentration) Volume: cp4 100 ml; Route: IVPB; Site: left antecubital; 21:19 Follow up: IV Status: Completed infusion cp4 21:19 Drug: vancoMYCIN IVPB 2 grams IVPB at calculated rate once Route: IVPB; Rate: cp4 calculated rate; Site: left antecubital; 23:00 Follow up: Response: No adverse reaction; IV Status: Infusion continued upon admission cp4 Medication: 19:15 VIS not applicable for this client. cp4 Outcome: 20:47 Decision to Hospitalize by Provider. sp4 22:58 Admitted to Med/surg accompanied by tech, via stretcher, room 223, with chart, cp4 22:58 Condition: stable 22:58 Instructed on the need for admit, 23:01 Patient left the ED. cp4 Signatures: Dispatcher [employer] Shola Griggs MD MD sp4 Marta Johnson RN RN me1 Marguerite Hawkins cp4 Viki Avilez ak6 Arita, Mamie ts3
--- NOTE | 2025-03-05 20:47 | EDPHYS ---
Physician Documentation [facility] Name: Howie Pedroza Age: 54 yrs Sex: Male : 1970 Arrival Date: 03/05/2025 Time: 18:18 Bed 13 Private MD: ED Physician Shola Bolaños HPI: 03/05 19:16 This 54 yrs old Male presents to ER via Ambulatory with complaints of Rash. sp4 20:40 54-year-old male with history of IgA deficiency, bicuspid aortic valve, history of sp4 liver cirrhosis and history of prior ESBL E. coli UTI, presents with moderate to severe right lower extremity redness tenderness swelling and pain in multiple abrasions oozing tissue fluid. Patient states he has history of recurrent cellulitis of right lower extremity, history of prior DVT, history of anticoagulation with Eliquis. History of recent admission here to the hospital for sepsis on 01/08/2025. Home medications include apixaban 2.5 mg p.o. twice daily, furosemide 80 mg p.o. twice daily, lactulose 30 g p.o. daily, potassium chloride 20 mEq twice daily, propranolol 40 mg p.o. 3 times daily. Patient is allergic to Bactrim and Keflex. Patient reports additional complaint of right arm rash maculopapular in nature.. Historical: - Allergies: 18:49 Bactrim; me1 18:49 Keflex; me1 18:49 Tramadol HCl; me1 18:49 Spironolactone; me1 - PMHx: 18:49 DVT; Hepatitis C; Liver cirrhosis (Unknown); PVD; me1 - PSHx: 18:49 back; me1 - Immunization history:: Adult Immunizations up to date. - Infectious Disease History:: Denies. - Social history:: Smoking status: Patient/guardian denies using tobacco, but has a distant history of tobacco abuse. - Family history:: not pertinent. ROS: 20:42 Constitutional: Negative for fever, chills, and weight loss, positive for right lower sp4 extremity pain tenderness redness and swelling, positive for right arm rash, positive for generalized physical debility 20:42 All other systems are negative, Exam: 20:42 Constitutional: Physically debilitated male, right lower extremity redness and sp4 cellulitis tracking just above the right knee, right lower extremity tense swelling associated with multiple small skin breaks oozing tissue fluid. Right upper extremity is extensive rash maculopapular in nature, Head/Face: Normocephalic, atraumatic. Eyes: Pupils equal round and reactive to light, extra-ocular motions intact. Lids and lashes normal. Conjunctiva and sclera are not injected. Cornea within normal limits. Periorbital areas with no swelling, redness, or edema. ENT: Nares patent. No nasal discharge, no septal abnormalities noted. Tympanic membranes are normal and external auditory canals are clear. Oropharynx with no redness, swelling, or masses, exudates, or evidence of obstruction, uvula midline. Mucous membranes moist. Neck: Trachea midline, no thyromegaly or masses palpated, and no cervical lymphadenopathy. Supple, full range of motion without nuchal rigidity, or vertebral point tenderness. Chest/axilla: Normal chest wall appearance and motion. Nontender with no deformity. No lesions are appreciated. Cardiovascular: Regular rate and rhythm with a normal S1 and S2. No gallops, murmurs, or rubs. No pulse deficits. Respiratory: Lungs have equal breath sounds bilaterally, clear to auscultation and percussion. No rales, rhonchi or wheezes noted. No increased work of breathing, no retractions or nasal flaring. Abdomen/GI: Soft, with normal bowel sounds. No distension or tympany. No guarding or rebound. No evidence of tenderness throughout. Back: No spinal tenderness. No costovertebral tenderness. Skin: Warm, dry with normal turgor. Normal color with right upper extremity maculopapular rash, right upper extremity allergic type rash, hives, also right lower extremity cellulitic changes associated with multiple skin breaks MS/ Extremity: Pulses equal, no cyanosis. Neurovascular intact. Full, normal range of motion. Neuro: Awake and alert, GCS 15, oriented to person, place, time, and situation. Cranial nerves II-XII grossly intact. Motor strength 5/5 in all extremities. Sensory grossly intact. Psych: Awake, alert, with orientation to person, place and time. Behavior, mood, and affect are within normal limits Vital Signs: 18:45 BP 117 / 65; Pulse 68; Resp 20; Temp 98.7; Pulse Ox 100% ; Weight 124.28 kg; Height 6 me1 ft. 1 in. ; Pain 10/10; 20:00 BP 110 / 70; Pulse 67; Resp 18; Pulse Ox 100% ; cp4 21:00 BP 118 / 69; Pulse 69; Resp 18; Pulse Ox 99% ; cp4 22:00 BP 103 / 57; Pulse 74; Resp 18; Pulse Ox 99% ; cp4 22:58 BP 100 / 89; Pulse 73; Resp 18; Pulse Ox 99% ; cp4 18:45 Body Mass Index 36.15 (124.28 kg, 185.42 cm) me1 18:45 Pain Scale: Adult me1 Wei Coma Score: 20:42 Eye Response: spontaneous(4). Motor Response: obeys commands(6). Verbal Response: sp4 oriented(5). Total: 15. MDM: 19:48 Medical Screening Exam initiated sp4 20:45 Differential diagnosis: impetigo, varicella, allergic reaction, parasite infection, sp4 carcinoma, Cellulitis. Data reviewed: vital signs, nurses notes, EMS record, old medical records, lab test result(s), radiologic studies, ultrasound. ED course: Right lower extremity preliminary ultrasound report negative for DVT. 20:52 Consideration of Admission/Observation Patient was admitted/placed on observation. sp4 Escalation of care including admission/observation considered. Management of patient was discussed with the following: Hospitalist: Chicho WHALEN . ED course: COMPARISON: No prior exam. FINDINGS: Duplex sonography testing of the veins of the RIGHT lower extremity was performed. Color flow imaging shows all veins to be compressible with [id number] color filling. Pulsatile and phasic flow is present within all lower extremity deep and superficial veins examined. Incidentally noted well-circumscribed echogenic mass within the right inner thigh subcutaneous soft tissues measuring 3.4 x 2.3 x 1.4 cm, most compatible with a lipoma. IMPRESSION: No evidence of deep venous thrombosis. Incidentally noted right inner thigh 3.4 cm lipoma. . 03/05 19:36 Order name: BNP 4 03/05 19:36 Order name: Blood Culture Adult (2) 4 03/05 19:36 Order name: CBC with Diff; Complete Time: 20:33 4 03/05 19:36 Order name: CMP sp4 03/05 19:36 Order name: Lactate w/ 2H reflex if indic.; Complete Time: 20:33 sp4 03/05 19:36 Order name: Protime (+inr); Complete Time: 20:33 sp4 03/05 19:36 Order name: Ptt, Activated; Complete Time: 20:33 sp4 03/05 19:36 Order name: Troponin HS sp4 03/05 20:02 Order name: Glucose, Ancillary Testing; Complete Time: 20:33 EDMS 03/05 20:42 Order name: TSH sp4 03/05 20:42 Order name: T4 Free sp4 03/05 21:35 Order name: Creatine Phosphokinase EDMS 03/05 21:35 Order name: CBC with Automated Diff EDMS 03/05 21:35 Order name: CBC with Automated Diff EDMS 03/05 21:35 Order name: Comprehensive Metabolic Panel EDMS 03/05 21:35 Order name: Comprehensive Metabolic Panel EDMS 03/05 21:35 Order name: Lipid Profile EDMS 03/05 21:35 Order name: Lipid Profile EDMS 03/05 19:37 Order name: Extremity Venous Uni Ltd US 4 03/05 19:36 Order name: Accucheck; Complete Time: 19:53 sp4 03/05 19:36 Order name: Cardiac monitoring; Complete Time: 20:30 sp4 03/05 19:36 Order name: EKG - Nurse/Tech; Complete Time: 20:30 sp4 03/05 19:36 Order name: IV Saline Lock - Large Bore; Complete Time: 19:37 sp4 03/05 19:36 Order name: Labs collected and sent; Complete Time: 19:53 sp4 03/05 19:36 Order name: O2 Per Protocol; Complete Time: 20:04 sp4 03/05 19:36 Order name: O2 Sat Monitoring; Complete Time: 20:04 sp4 03/05 19:36 Order name: Vital Signs; Complete Time: 20:04 sp4 Administered Medications: 20:03 Drug: morphine IVP or IV 4 mg IVP once over 4 mins Route: IVP; Infused Over: 4 mins; cp4 Site: left antecubital; 20:30 Follow up: Response: No adverse reaction cp4 20:04 Drug: Acetaminophen PO 1000 mg PO once Route: PO; cp4 20:31 Follow up: Response: No adverse reaction cp4 20:04 Drug: Meropenem IV 1 grams IV at calculated rate once; (mix in NS 100 mL) Route: IV; cp4 Rate: calculated rate; Site: left antecubital; 20:31 Follow up: IV Status: Completed infusion cp4 20:04 Drug: diphenhydrAMINE IVP 25 mg IVP once Route: IVP; Site: left antecubital; cp4 20:30 Follow up: Response: No adverse reaction cp4 20:04 Drug: MethylPrednisoLONE IVP 125 mg IVP once Route: IVP; Site: left antecubital; cp4 20:30 Follow up: Response: No adverse reaction cp4 20:05 Drug: Ondansetron IVP 4 mg IVP once; over 2 minutes Route: IVP; Site: left antecubital; cp4 20:30 Follow up: Response: No adverse reaction cp4 20:05 Drug: Droperidol IVP 2.25 mg IVP once Route: IVP; Site: left antecubital; cp4 20:30 Follow up: Response: No adverse reaction cp4 20:31 Drug: Albumin IVPB 25 grams 100 ml IVPB once; (Note: Albumin 25% concentration) Volume: cp4 100 ml; Route: IVPB; Site: left antecubital; 21:19 Follow up: IV Status: Completed infusion cp4 21:19 Drug: vancoMYCIN IVPB 2 grams IVPB at calculated rate once Route: IVPB; Rate: cp4 calculated rate; Site: left antecubital; 23:00 Follow up: Response: No adverse reaction; IV Status: Infusion continued upon admission cp4 Disposition Summary: 03/05/25 20:47 Hospitalization Ordered Notes: Hospitalization Status: Inpatient Admission sp4 Provider: Chicho Villafana Location: Telemetry/MedSur (Inpatient) sp4 Condition: Fair sp4 Problem: new sp4 Symptoms: are unchanged sp4 Bed/Room Type: Standard sp4 Room Assignment: 223(03/05/25 21:40) Diagnosis - Cellulitis of right lower limb sp4 - Acute right lower extremity cellulitis, acute right upper extremity maculopapular sp4 rash Forms: - Medication Reconciliation Form sp4 - SBAR form sp4 - Leadership Thank You Letter sp4 Signatures: Dispatcher [employer] EDMS Davian, BharatiMILAGROS kidd RN, Sergey, MD MD sp4 Marta Johnson RN RN [facility] [place] Marguerite Hawkins cp4 Corrections: (The following items were deleted from the chart) 19:37 19:37 PROBNP+C.LAB.BRZ ordered. EDMS EDMS 19:37 19:37 BLOOD CULTURE*+BA.LAB.BRZ ordered. EDMS EDMS 19:37 19:37 CBC+H.LAB.BRZ ordered. EDMS EDMS 19:37 19:37 COMPREHENSIVE METABOLIC PANEL+C.LAB.BRZ ordered. EDMS EDMS 19:37 19:37 LACTATE+C.LAB.BRZ ordered. EDMS EDMS 19:37 19:37 PROTIME (+INR)+COAG.LAB.BRZ ordered. EDMS EDMS 19:37 19:37 PTT, ACTIVATED+COAG.LAB.BRZ ordered. EDMS EDMS 19:37 19:37 Troponin High Sensitivity+C.LAB.BRZ ordered. EDMS EDMS 21:40 20:47 spTono swan
[2025-03-05] MEDS ORDERED: ONDANSETRON 4 MG/2 ML VIAL IV PRN (21:28)
[2025-03-05] MEDS ORDERED: ALBUTEROL 2.5 MG/3 ML NEB SOL NEB PRN (21:28)
[2025-03-05] MEDS ORDERED: MORPHINE 2 MG/ML SYR IV PRN (21:28)
[2025-03-05] MEDS ORDERED: ACETAMINOPHEN 500 MG TAB PO PRN (21:28)
--- NOTE | 2025-03-05 21:28 | P.HP ---
Certification for Inpatient Patient admitted to: Inpatient With expected LOS: >2 Midnights Patient will require the following post-hospital care: None Practitioner: I am a practitioner with admitting privileges, knowledge of patient current condition, hospital course, and medical plan of care. Services: Services provided to patient in accordance with Admission requirements found in Title 42 Section 412.3 of the Code of Federal Regulations Patient History Date of Service: 03/05/25 Reason for admission: Right leg rash History of Present Illness: 54-year-old male with past medical history of hepatitis C, liver cirrhosis, previous right lower extremity DVT, IgA deficiency, bicuspid aortic valve with severe calcification, recurrent right lower extremity rash, recent ESBL E. coli bacteremia1 month ago requiring ICU stay and discharged home on meropenem 5 weeks ago. Presented to the ED today after developing recurrence of the right lower lower extremity rash as well as a new right upper extremity rash since the last 1 week. She states the rash over the right upper extremity is itchy, rash over the right lower extremity appears similar to previous but with more redness and increased warmth with pain. He states he has drainage from behind the right knee with discharge but drainage has slowed down now. Patient denies any new trauma. He denies any fever or chills. On arrival in the ED vital signs were stable, ultrasound of the right lower extremity shows previously noted lipoma in the right thigh with edematous changes of the right lower extremity,. Laboratory workup shows normal WBC, hemoglobin of 10.7, lactic acid was normal at 1.3, BMP shows potassium of 3.2, normal creatinine Patient has been admitted for acute on chronic right lower extremity cellulitis as well as right upper extremity new rash Allergies sulfamethoxazole [From Bactrim] Allergy (Severe, Verified 10/25/23 01:16) Hives/Rash trimethoprim [From Bactrim] Allergy (Severe, Verified 10/25/23 01:16) Hives/Rash cephalexin monohydrate [From Keflex] Allergy (Intermediate, Verified 06/27/12 20:54) Rash spironolactone Allergy (Intermediate, Verified 06/27/12 20:54) SWELLING tramadol Allergy (Intermediate, Verified 06/27/12 20:54) Rash Tramadol HCl Allergy (Uncoded 05/18/15 02:23) Unknown Home Medications: Apixaban [Eliquis *] 2.5 mg PO BID 10/24/23 Furosemide 80 mg PO BID 10/24/23 Lactulose 30 gm PO DAILY 10/24/23 Potassium Chloride 20 meq PO BID 10/24/23 Apixaban [Eliquis *] 2.5 mg PO BID 01/15/25 Furosemide [Lasix*] 80 mg PO BIDL tab 01/15/25 Propranolol [Inderal*] 40 mg PO BID #60 tab 01/15/25 - Past Medical/Surgical History Diabetic: No -: Hepatitis C -: Cirrhosis -: Esophageal varices -: Portal hypertension -: DVT of the left lower extremity -: Neuropathy -: Cellulitis -: IgA deficient -: Congenital heart murmur -: Patient has had endoscopy for esophageal varices -: Back surgery 2014 - Family History Mother Notes: Patient with combined variable immunodeficiency. Patient with atherosclerotic disease - Social History Smoking Status: Former smoker Smoking therapy provided: No Patient receptive to therapy: No Alcohol use: Yes CD- Drugs: Yes Caffeine use: No Place of Residence: Home Review of Systems Integumentary: Rash, Lesions (Right upper and right lower extremity) Physical Examination - Physical Exam General: Alert, In no apparent distress, Oriented x3 HEENT: Atraumatic, Normocephalic, PERRLA Neck: Supple, 2+ carotid pulse no bruit, JVD not distended Respiratory: Clear to auscultation bilaterally, Normal air movement Cardiovascular: No edema, Normal pulses, Regular rate/rhythm, Normal S1 S2 Capillary refill: <2 Seconds Gastrointestinal: Normal bowel sounds, Soft and benign, Non-distended, No ascites, No tenderness Musculoskeletal: Other (Right lower extremity lymphedema, multiple abrasions and cracks, erythema extending to the mid thigh,) Integumentary: Rash(es) (Rash over right upper extremity as well as right lower leg) Neurological: Normal speech, Normal strength at 5/5 x4 extr, Sensation intact, Cranial nerves 3-12 intact - Studies Laboratory Data (last 24 hrs) 03/05/25 03/05/25 03/05/25 19:35 19:35 19:35 WBC 6.30 Hgb 10.8 L Hct 31.8 L Plt Count 168 PT 15.0 H INR 1.34 APTT 36.9 Sodium 141 Potassium 3.2 L BUN 22 H Creatinine 1.14 Glucose 100 Total Bilirubin 0.6 AST 38 H ALT 22 Alkaline Phosphatase 92 Assessment and Plan - Problems (Diagnosis) (1) Aortic valve disease Current Visit: No Status: Acute (2) Atrial fibrillation Current Visit: No Status: Acute (3) Cellulitis of right lower extremity Current Visit: No Status: Acute (4) Cirrhosis Current Visit: No Status: Acute (5) DVT, lower extremity Current Visit: No Status: Acute (6) IgA deficiency Current Visit: No Status: Acute (7) Liver cirrhosis Current Visit: No Status: Acute - Plan Impression Right lower extremity cellulitis Right upper extremity allergic reaction Liver cirrhosis IgA deficiency History of chronic anticoagulation with Eliquis Recent ESBL E. coli bacteremia Plan We admit patient to inpatient Right lower extremity cellulitisobtain blood culture x 2 Start empirical meropenem ID consult in a.m. Monitor area of rash resume lasix Pain control Right upper extremity allergic reactionadd topical steroids Antihistamine as needed History of liver cirrhosis/IgA deficiencystable History of chronic anticoagulationcontinue Eliquis Advance directivefull code - Advance Directives Does patient have a Living Will: No Does patient have a Durable POA for Healthcare: No - Code Status/Comfort Care Code Status Assessed: Yes Code Status: Full Code Time Spent Managing Pts Care (In Minutes): 70
[2025-03-05] MEDS ORDERED: HYDRALAZINE HCL 20 MG/ML VIAL IV PRN (21:31)
[2025-03-05] MEDS ORDERED: LORAZEPAM 0.5 MG TABLET PO PRN (21:31)
[2025-03-05] MEDS ORDERED: MELATONIN 5 MG TABLET PO PRN (21:31)
[2025-03-05] MEDS: DIPHENHYDRAMINE 50 MG/ML VIAL IV ONE (21:32)
[2025-03-05 23:18] VITALS: O2SAT 99
[2025-03-05 23:26] LABS: Thyroid Stimulating Hormone 4.06 uIU/mL (0.358-3.740)
[2025-03-06 00:27] VITALS: BMI 36.0
[2025-03-06] MEDS: POTASSIUM 25 MEQ EFFERV TAB ONE (00:32)
[2025-03-06] MEDS: POTASSIUM 25 MEQ EFFERV TAB PO ONE (00:43)
[2025-03-06] MEDS: Meropenem 1,000 MG in NA CHLORIDE 0.9% 100 ML IV SCH (00:44)
[2025-03-06] MEDS: FUROSEMIDE 40 MG TABLET PO SCH (05:54)
[2025-03-06 07:00] LABS: Absolute Lymphocytes (CBC) 0.3 K/uL (0.7-4.9); Hematocrit 30.1 % (39.6-49.0); Hemoglobin 10.5 g/dL (13.6-17.9); MCH 31.3 pg (27.0-35.0); MCHC 34.9 g/dL (32.0-36.0); MCV 89.7 fL (80-100); MPV 7.6 fL (7.6-11.3); Nucleated RBC Absolute Count 0.0 (0-0); Nucleated Red Blood Cells % 0.1 % (0-0); RBC Red Blood Cell Count 3.36 M/uL (4.33-5.43); White Blood Count 3.70 thou/uL (4.3-10.9)
[2025-03-06 07:17] LABS: ALT/SGPT 19.0 U/L (16-61); AST/SGOT 32.0 U/L (15-37); Albumin 2.4 g/dL (3.4-5.0); Albumin/Globulin Ratio 0.6 (1.1-1.8); Alkaline Phosphatase 77.0 U/L (45-117); Anion Gap 6.7 mEq/L (5.0-15.0); BUN Blood Urea Nitrogen 23.0 mg/dL (7-18); Globulin 4.3 g/dL (2.3-3.5); Glucose Level 170.0 mg/dL (74-106); HDL Cholesterol 49.0 mg/dL (40-60); LDL Cholesterol, Calculated 52.0 mg/dL (<130); LDL Cholesterol,Calc NonReport 52.0; Potassium 3.7 mEq/L (3.5-5.1)
[2025-03-06] MEDS: LACTULOSE 20 GM/30 ML UCUP PO SCH (09:29)
[2025-03-06] MEDS: PROPRANOLOL HCL 40 MG TAB PO SCH (09:30)
[2025-03-06] MEDS: APIXABAN 2.5 MG TABLET PO SCH (09:30)
[2025-03-06] MEDS: POTASSIUM CL SA 10 MEQ TAB PO SCH (09:30)
--- NOTE | 2025-03-06 14:26 | P.PN ---
Subjective Date of Service: 03/06/25 Chief Complaint: Right leg rash Patient complaining of itching in his right upper extremity. He denies shortness of breath. Physical Examination - Vital Signs Temperature: 97.7 F Blood Pressure: 130/60 Pulse: 62 Respirations: 16 Pulse Ox (%): 97 - Studies Laboratory Data (last 24 hrs) 03/05/25 03/05/25 03/05/25 19:35 19:35 19:35 WBC 6.30 Hgb 10.8 L Hct 31.8 L Plt Count 168 PT 15.0 H INR 1.34 APTT 36.9 Sodium 141 Potassium 3.2 L BUN 22 H Creatinine 1.14 Glucose 100 Total Bilirubin 0.6 AST 38 H ALT 22 Alkaline Phosphatase 92 Assessment And Plan - Plan Physical examination General: Alert and oriented x 3, NAD, HEENT: Conjunctiva not pale, anicteric sclera Neck: Supple, no elevated JVD Heart: Heart sounds 1 and 2 normal, regular rhythm, normal rate, no pedal edema Lungs: Clear to auscultation bilaterally, adequate breath sounds bilaterally, no rhonchi or crackles. Abdomen: Soft, nondistended, nontender, normal bowel sounds. Extremities: Bilateral lower extremity swelling, right greater than left. Lymphatic system: Bilateral lower extremity lymphedema, right greater than left Skin: Erythematous maculopapular rash on right upper extremity, bilateral lower extremity venous stasis dermatitis with oozing on the left leg. Neuro: No focal motor deficit. Normal speech. Psychiatry: Normal mood, no agitation. Diagnosis Right lower extremity venous stasis dermatitis Right upper extremity allergic reaction Liver cirrhosis IgA deficiency History of chronic anticoagulation with Eliquis Recent ESBL E. coli bacteremia Plan: Right upper extremity dermatitis Initial eosinophilia suggest allergic reaction. Rash is resolving Topical hydrocortisone cream. Anti-pruritus as needed. Bilateral lower extremity venous stasis dermatitis Bilateral lower extremity lymphedema IV Lasix Keep lower extremities elevated. Liver cirrhosis Patient appears compensated Continue Lasix. Add Aldactone. IgA deficiency Extremity rash could be related to patient's IgA deficiency. Hydrocortisone for skin rash. Gluten-free diet. History of ESBL E. coli bacteremia Continue IV meropenem. DVT prophylaxis: On Eliquis.
[2025-03-06] MEDS ORDERED: HYDROCORTISONE 1 % CREAM 30GM TOP PRN (14:34)
[2025-03-06] MEDS: DIPHENHYDRAMINE 50 MG/ML VIAL IV ONE (21:08)
[2025-03-07 05:20] LABS: Absolute Lymphocytes (CBC) 0.6 K/uL (0.7-4.9); Hematocrit 27.7 % (39.6-49.0); Hemoglobin 9.9 g/dL (13.6-17.9); MCH 32.0 pg (27.0-35.0); MCHC 35.6 g/dL (32.0-36.0); MCV 90.0 fL (80-100); MPV 8.3 fL (7.6-11.3); Nucleated RBC Absolute Count 0.0 (0-0); Nucleated Red Blood Cells % 0.1 % (0-0); RBC Red Blood Cell Count 3.08 M/uL (4.33-5.43); White Blood Count 8.80 thou/uL (4.3-10.9)
[2025-03-07 06:21] LABS: Anion Gap 7.4 mEq/L (5.0-15.0); BUN Blood Urea Nitrogen 19.0 mg/dL (7-18); Glucose Level 117.0 mg/dL (74-106); Potassium 3.4 mEq/L (3.5-5.1)
[2025-03-07 08:23] LABS: Differential Total Cells Count 100
[2025-03-07 08:26] LABS: Segmented Neutrophils 88 % (40-80)
[2025-03-07 08:27] LABS: Blood Morphology Comment NOT SEEN (NOT SEEN)
[2025-03-07] MEDS: SPIRONOLACTONE 25 MG TABLET PO SCH (08:59)
[2025-03-07] MEDS: FUROSEMIDE 40 MG TABLET PO ONE (09:00)
[2025-03-07 12:11] VITALS: BP 142/66; TEMP 98
--- NOTE | 2025-03-07 14:31 | P.DS ---
Admission Date: 03/05/25 Discharge Date: 03/07/25 Disposition: ROUTINE DISCHARGE Discharge Condition: FAIR Reason for Admission: Right leg rash Hospital Course: Diagnosis Right lower extremity venous stasis dermatitis Right upper extremity allergic reaction Liver cirrhosis IgA deficiency History of chronic anticoagulation with Eliquis Recent ESBL E. coli bacteremia Patient with history of hepatitis C, liver cirrhosis, previous right lower extremity DVT, IgA deficiency, bicuspid aortic valve with severe calcification, recurrent right lower extremity rash, recent ESBL E. coli bacteremia1 month ago requiring ICU stay and discharged home on meropenem 5 weeks ago. Presented to the ED today after developing recurrence of the right lower lower extremity rash as well as a new right upper extremity pruritic rash of 1 week duration. He also reported right lower extremity swelling which started weeping. He has a baseline history of lymphedema of both lower extremities. In the ED, ultrasound of the right lower extremity showed previously noted lipoma in the right thigh with edematous changes of the right lower extremity,. Laboratory workup showed normal WBC, hemoglobin of 10.7, lactic acid was normal at 1.3, BMP shows potassium of 3.2, normal creatinine. Patient admitted to the medical floor, given a dose of IV Lasix for the increased lower extremity swelling and then continued on his home Lasix dose-80 mg twice a day. Patient lower extremity elevated. The edema and swelling significantly improved. Right upper extremity erythematous papular rash deemed secondary to allergy given initial eosinophilia noted in his CBC. Rash could also be related to his history of IgA deficiency. Rash was treated with hydrocortisone cream, and is generally improved. Blood cultures yielded no growth. Vitals are stable, patient is ambulatory and tolerating diet. Patient symptoms significantly improved and deemed stable for discharge. Vital Signs/Physical Exam: Temp Pulse Resp BP Pulse Ox 98.0 F 67 18 142/66 H 100 03/07/25 12:00 03/07/25 12:00 03/07/25 12:00 03/07/25 12:03/07/25 12:00 General: Alert, In no apparent distress, Oriented x3 HEENT: Mucous membr. moist/pink, Sclerae nonicteric Neck: Supple, JVD not distended Respiratory: Clear to auscultation bilaterally, Normal air movement Cardiovascular: Regular rate/rhythm, Normal S1 S2, Edema (Right greater than left) Gastrointestinal: Soft and benign, Non-distended, No tenderness Musculoskeletal: Swelling (Bilateral legs, right greater than left) Integumentary: Other (Crusting erythematous papular rash-right upper extremity, bilateral lower extremity erythema improved.) Neurological: Normal strength at 5/5 x4 extr, Cranial nerves 3-12 intact Laboratory Data at Discharge: WBC 8.80 thou/uL (4.3-10.9) 03/07/25 04:40 Hgb 9.9 g/dL (13.6-17.9) L 03/07/25 04:40 Hct 27.7 % (39.6-49.0) L 03/07/25 04:40 Plt Count 160 thou/uL (152-406) 03/07/25 04:40 PT 15.0 SECONDS (10-13.0) H 03/05/25 19:35 INR 1.34 03/05/25 19:35 APTT 36.9 SECONDS (27.2-37.4) 03/05/25 19:35 Sodium 143 mEq/L (136-145) 03/07/25 05:56 Potassium 3.4 mEq/L (3.5-5.1) L 03/07/25 05:56 BUN 19 mg/dL (7-18) H 03/07/25 05:56 Creatinine 0.98 mg/dL (0.70-1.30) 03/07/25 05:56 Glucose 117 mg/dL (74-106) H 03/07/25 05:56 Total Bilirubin 0.7 mg/dL (0.2-1.0) 03/06/25 06:53 AST 32 U/L (15-37) 03/06/25 06:53 ALT 19 U/L (16-61) 03/06/25 06:53 Alkaline Phosphatase 77 U/L (45-117) 03/06/25 06:53 Triglycerides 56 mg/dL (<150) 03/06/25 06:53 Cholesterol 112 mg/dL (<200) 03/06/25 06:53 HDL Cholesterol 49 mg/dL (40-60) 03/06/25 06:53 Cholesterol/HDL Ratio 2.29 03/06/25 06:53 Home Medications: Furosemide 80 mg PO BID 10/24/23 Lactulose 30 gm PO DAILY 10/24/23 Apixaban [Eliquis *] 2.5 mg PO BID 01/15/25 Propranolol [Inderal*] 40 mg PO BID #60 tab 01/15/25 Hydrocortisone Cream [Hydrocortisone 1% Cream*] 1 appl TOP TID PRN #1 tube 03/07/25 Spironolactone [Aldactone*] 50 mg PO DAILY #30 tab 03/07/25 New Medications: Spironolactone [Aldactone*] 50 mg PO DAILY #30 tab Hydrocortisone Cream [Hydrocortisone 1% Cream*] 1 appl TOP TID PRN #1 tube PRN Reason: Itching Physician Discharge Instructions: Patient with history of hepatitis C, liver cirrhosis, previous right lower extremity DVT, IgA deficiency, bicuspid aortic valve with severe calcification, recurrent right lower extremity rash, recent ESBL E. coli bacteremia1 month ago requiring ICU stay and discharged home on meropenem 5 weeks ago. Presented to the ED today after developing recurrence of the right lower lower extremity rash as well as a new right upper extremity pruritic rash of 1 week duration. He also reported right lower extremity swelling which started weeping. He has a baseline history of lymphedema of both lower extremities. In the ED, ultrasound of the right lower extremity showed previously noted lipoma in the right thigh with edematous changes of the right lower extremity,. Laboratory workup showed normal WBC, hemoglobin of 10.7, lactic acid was normal at 1.3, BMP shows potassium of 3.2, normal creatinine. Patient admitted to the medical floor, given a dose of IV Lasix for the increased lower extremity swelling and then continued on his home Lasix dose-80 mg twice a day. Patient lower extremity elevated. The edema and swelling significantly improved. Right upper extremity erythematous papular rash deemed secondary to allergy given initial eosinophilia noted in his CBC. Rash could also be related to his history of IgA deficiency. Rash was treated with hydrocortisone cream, and is generally improved. Vitals are stable, patient is ambulatory and tolerating diet. Patient symptoms significantly improved and deemed stable for discharge. Diet: AHA Activity: Ad nathan Followup: KALEIGH OSULLIVAN [Primary Care Provider] - 1 Week Time spent managing pt's care (in minutes): 33
[2025-03-07] MEDS ORDERED: FUROSEMIDE 40 MG TABLET PO SCH (18:00)
== END 2025-03-07 15:38 | disposition home or self-care (01) | DRG 300 ==
LOC: ER 18:18 → 2ND 21:28
PROVIDERS: ADMIT Internal Medicine; ATTEND Internal Medicine
DX: I87.2 Venous insufficiency (chronic) (peripheral) (principal); D80.2 Selective deficiency of immunoglobulin A [IgA]; I48.91 Unspecified atrial fibrillation; K74.60 Unspecified cirrhosis of liver; I35.9 Nonrheumatic aortic valve disorder, unspecified; I89.0 Lymphedema, not elsewhere classified; D17.79 Benign lipomatous neoplasm of other sites; T50.905A Adverse effect of unspecified drugs, medicaments and biological substances, initial encounter; Z88.1 Allergy status to other antibiotic agents; Z79.01 Long term (current) use of anticoagulants; Z79.899 Other long term (current) drug therapy; Z87.891 Personal history of nicotine dependence; Z86.718 Personal history of other venous thrombosis and embolism
CPT/HCPCS: 36415; 80048; 80053; 80061; 82550; 82947; 83605; 83880; 84439; 84443; 84484; 85025; 85610; 85730; 87040; 93005; 93971; 96365; 96367; 96375; 99285; J1200; J1790; J2185; J2405; J2919; J3370; J7040; P9047

== ENCOUNTER 2025-04-23 22:35 | Inpatient (IN) | payer OTHER ==
[2025-04-23 23:50] LABS: Absolute Lymphocytes (CBC) 0.7 K/uL (0.7-4.9); Hematocrit 31.3 % (39.6-49.0); Hemoglobin 10.8 g/dL (13.6-17.9); MCH 30.7 pg (27.0-35.0); MCHC 34.5 g/dL (32.0-36.0); MCV 88.9 fL (80-100); MPV 8.4 fL (7.6-11.3); Nucleated RBC Absolute Count 0.0 (0-0); Nucleated Red Blood Cells % 0.1 % (0-0); RBC Red Blood Cell Count 3.52 M/uL (4.33-5.43); White Blood Count 4.20 thou/uL (4.3-10.9)
[2025-04-23 23:51] LABS: PT Prothrombin Time 14.7 SECONDS (10-13.0); PTT, Activated Partial Thromb 38.7 SECONDS (27.2-37.4); Protime INR 1.31
[2025-04-24 00:14] LABS: ALT/SGPT 34.0 U/L (16-61); AST/SGOT 41.0 U/L (15-37); Albumin 2.6 g/dL (3.4-5.0); Albumin/Globulin Ratio 0.6 (1.1-1.8); Alkaline Phosphatase 94.0 U/L (45-117); Anion Gap 10.4 mEq/L (5.0-15.0); BUN Blood Urea Nitrogen 15.0 mg/dL (7-18); C-Reactive Protein 25.2 mg/L (<3.00); Globulin 4.6 g/dL (2.3-3.5); Glucose Level 118.0 mg/dL (74-106); NT PRO-BNP 513.0 pg/mL (<125); Potassium 3.4 mEq/L (3.5-5.1); Troponin High Sensitivity 6.8 pg/mL (<58.9)
[2025-04-24] MEDS ORDERED: ASPIRIN 81 MG CHEWABLE TABLET ONE (00:42)
--- NOTE | 2025-04-24 00:47 | ER ---
Nurse's Notes [facility] Name: Howie Pedroza Age: 54 yrs Sex: Male : 1970 Arrival Date: 04/23/2025 Time: 22:35 Bed 19 Private MD: Diagnosis: Chest pain, unspecified;Cellulitis of right lower limb Presentation: 04/23 22:53 Chief complaint: Patient states: I have chronic cellulitis in my legs and my legs have kd3 been getting worse again for a while now but what brought me in today was a sharp chest pain that shoots like lightning on the left side of my chest. Its been about 30 minutes since the last time I've felt the chest pains. Coronavirus screen: Vaccine status: Patient reports receiving the 2nd dose of the covid vaccine. Ebola Screen: No symptoms or risks identified at this time. Initial Sepsis Screen: Does the patient meet any 2 criteria? No. Patient's initial sepsis screen is negative. Does the patient have a suspected source of infection? No. Patient's initial sepsis screen is negative. Risk Assessment: Do you want to hurt yourself or someone else? Patient reports no desire to harm self or others. Onset of symptoms was April 23, 2025. 22:53 Method Of Arrival: Ambulatory kd3 22:53 Acuity: KIMBERLEY 3 kd3 Triage Assessment: 22:55 General: Appears in no apparent distress. Behavior is calm, cooperative. Pain: kd3 Complains of pain in chest. Historical: - Allergies: 22:55 Bactrim; kd3 22:55 Keflex; kd3 22:55 spironolactone; kd3 22:55 Tramadol HCl; kd3 - PMHx: 22:55 DVT; Hepatitis C; Liver cirrhosis (Unknown); PVD; kd3 - PSHx: 22:55 back; kd3 - Immunization history:: Adult Immunizations up to date. - Infectious Disease History:: Denies. - Social history:: Smoking status: Patient denies any tobacco usage or history of. Screenin/26 01:59 [facility] ED Fall Risk Assessment (Adult) History of falling in the last 3 months, kd3 including since admission No falls in past 3 months (0 pts) Confusion or Disorientation No (0 pts) Intoxicated or Sedated No (0 pts) Impaired Gait No (0 pts) Mobility Assist Device Used No (0 pt) Altered Elimination No (0 pt) Score/Fall Risk Level 0 - 2 = Low Risk Maintained a safe environment. Abuse screen: Denies threats or abuse. Denies injuries from another. Nutritional screening: No deficits noted. Tuberculosis screening: No symptoms or risk factors identified. Assessment: 01:59 General: Appears in no apparent distress. Behavior is calm, cooperative. Pain: kd3 Complains of pain in right leg and left leg. Neuro: Level of Consciousness is awake, alert, obeys commands, Oriented to person, place, time, situation. Cardiovascular: Patient's skin is warm and dry. Respiratory: Airway is patent Trachea midline Respiratory effort is even, unlabored, Respiratory pattern is regular, symmetrical. Vital Signs: 04/23 22:53 BP 119 / 62; Pulse 72; Resp 16; Temp 98.2(O); Pulse Ox 100% on R/A; Weight 161.93 kg; kd3 Height 6 ft. 1 in. ; 04/24 02:00 BP 120 / 76; Pulse 67; Resp 16; Pulse Ox 100% on R/A; kd3 03:20 BP 121 / 68; Pulse 72; Resp 19; Pulse Ox 99% on R/A; kd3 04/23 22:53 Body Mass Index 47.10 (161.93 kg, 185.42 cm) kd3 ED Course: 04/23 22:38 Patient arrived in ED. gm2 22:42 Raman Hawley PA-C is PHCP. cp 22:42 Mallory Hernandez MD is Attending Physician. cp 22:52 Charla Parekh, RN is Primary Nurse. kd3 22:55 Triage completed. kd3 22:55 Arm band placed on right wrist. kd3 23:21 BNP Sent. kd3 23:21 Blood Culture Adult (2) Sent. kd3 23:21 CBC with Diff Sent. kd3 23:21 CMP Sent. kd3 23:21 Protime (+inr) Sent. kd3 23:21 Ptt, Activated Sent. kd3 23:21 Troponin HS Sent. kd3 23:21 CRP Sent. kd3 23:21 Initial lab(s) drawn, by nm, sent to lab. First set of blood cultures drawn by bing cooley3 Second set of blood cultures drawn by nm, EKG done, by ED staff, reviewed by Raman Hawley PA-C. 23:48 US Lower Extremity Arterial Bilateral In Process Unspecified. EDMS 23:48 US Extremity Venous W Compression Garnt In Process Unspecified. EDMS 23:51 Chest Single View XRAY In Process Unspecified. EDMS 04/24 00:46 Prince Garcia MD is Hospitalizing Provider. cp 01:59 Patient has correct armband on for positive identification. Provided Education on: kd3 urine sample and lasix . 03:20 No provider procedures requiring assistance completed. Patient admitted, IV remains in kd3 place. Administered Medications: 00:31 CANCELLED (Duplicate Order): piperacillin-tazobactam4.5 grams IVPB once over 60 mins; cp (mix in 100 mL NS) 01:03 Drug: vancoMYCIN IVPB 1.5 grams IVPB at calculated rate once Route: IVPB; Rate: kd3 calculated rate; Site: right antecubital; 01:03 Drug: Furosemide IVP 20 mg IVP once; give over 2 minutes Route: IVP; Site: right kd3 antecubital; 01:03 Drug: Aspirin PO Chewable Tablet 324 mg PO once; 81 mg tablets x 4 Route: PO; kd3 Medication: 02:15 VIS not applicable for this client. kd3 Outcome: 00:47 Decision to Hospitalize by Provider. cp 03:20 Admitted to Med/surg accompanied by tech, via wheelchair, kd3 03:20 Condition: stable 03:20 Instructed on the need for admit, 03:21 Patient left the ED. kd3 Signatures: Dispatcher [employer] EDIN Raman Hawley PA-C PA-C cp Doucette, Kyli RN RN kd3 Chloe Gongora 2
--- NOTE | 2025-04-24 00:47 | EDPHYS ---
Physician Documentation [facility] Name: Howie Pedroza Age: 54 yrs Sex: Male : 1970 Arrival Date: 04/23/2025 Time: 22:35 Bed 19 Private MD: ED Physician Mallory Hernandez HPI: 04/23 23:05 This 54 yrs old Male presents to ER via Ambulatory with complaints of Leg Swelling. cp 23:05 The patient presents with pain, swelling, tenderness, redness. The complaints affect cp the right lower leg and left lower leg. 23:05 Context: reports PMHX significant for dvt and cellulitis. cp 23:05 The patient or guardian reports chest pain that is located primarily in the anterior cp chest wall. 23:05 Onset: today, intermittent, described as sharp with last episode 30 minutes ago. cp Historical: - Allergies: 22:55 Bactrim; kd3 22:55 Keflex; kd3 22:55 spironolactone; kd3 22:55 Tramadol HCl; kd3 - PMHx: 22:55 DVT; Hepatitis C; Liver cirrhosis (Unknown); PVD; kd3 - PSHx: 22:55 back; kd3 - Immunization history:: Adult Immunizations up to date. - Infectious Disease History:: Denies. - Social history:: Smoking status: Patient denies any tobacco usage or history of. ROS: 23:10 Constitutional: Negative for body aches, chills, fever, poor PO intake, cp 23:10 Eyes: Negative for injury, pain, redness, and discharge, cp 23:10 ENT: Negative for drainage from ear(s), ear pain, sore throat, difficulty swallowing, difficulty handling secretions, 23:10 Cardiovascular: Positive for chest pain, edema, 23:10 Respiratory: Negative for cough, shortness of breath, wheezing, 23:10 Abdomen/GI: Negative for abdominal pain, vomiting, diarrhea, constipation, 23:10 Skin: Positive for erythema, of the right lower leg and left lower leg, 23:10 Neuro: Negative for altered mental status, dizziness, headache, syncope, weakness, 23:10 All other systems are negative, Exam: 23:10 ECG was reviewed by the Attending Physician. cp 23:12 Constitutional: The patient appears in no acute distress, alert, awake, cp non-diaphoretic, non-toxic, well developed, well nourished, obese, uncomfortable, 23:12 Head/Face: Normocephalic, atraumatic. cp 23:12 Eyes: Periorbital structures: appear normal, Conjunctiva: normal, no exudate, no cp injection, Sclera: no appreciated abnormality, Lids and lashes: appear normal, bilaterally, 23:12 ENT: External ear(s): are unremarkable, Nose: is normal, Mouth: Lips: moist, Oral cp mucosa: moist, Posterior pharynx: Airway: no evidence of obstruction, patent, 23:12 Chest/axilla: Inspection: normal, 23:12 Cardiovascular: Rate: normal, Rhythm: regular, Edema: ankle edema, that is moderate, JVD: is not appreciated, 23:12 Respiratory: the patient does not display signs of respiratory distress, Respirations: normal, no use of accessory muscles, no retractions, labored breathing, that is mild, Breath sounds: decreased breath sounds, are not appreciated, stridor, is not appreciated, wheezing: is not appreciated, 23:12 Abdomen/GI: Inspection: obese Palpation: abdomen is soft and non-tender, in all quadrants, 23:12 Back: pain, is absent, 23:12 Skin: moderate erythema noted right lower leg and left lower leg. 23:12 Neuro: Orientation: to person, place \T\ time. Mentation: is normal, Vital Signs: 22:53 BP 119 / 62; Pulse 72; Resp 16; Temp 98.2(O); Pulse Ox 100% on R/A; Weight 161.93 kg; kd3 Height 6 ft. 1 in. ; 04/24 02:00 BP 120 / 76; Pulse 67; Resp 16; Pulse Ox 100% on R/A; kd3 03:20 BP 121 / 68; Pulse 72; Resp 19; Pulse Ox 99% on R/A; kd3 04/23 22:53 Body Mass Index 47.10 (161.93 kg, 185.42 cm) kd3 MDM: 04/23 22:54 Medical Screening Exam initiated cp 04/24 00:00 Differential diagnosis: abnormal EKG, acute myocardial infarction, costochondritis, cp esophagitis, pancreatitis, pericarditis, pleurisy, pneumonia, cellulitis, dvt. 00:50 Data reviewed: vital signs, nurses notes, lab test result(s), EKG, radiologic studies, cp plain films, ultrasound, and as a result, I will admit patient. 00:50 The patient was given aspirin in the Emergency Department. I considered the following cp discharge prescriptions or medication management in the emergency department Medications were administered in the Emergency Department. See MAR. Independent interpretation of the following test(s) in the Emergency Department EKG: See my EKG interpretation above. Care significantly affected by the following chronic conditions: Liver Disease. Counseling: I had a detailed discussion with the patient and/or guardian regarding the historical points, exam findings, and any diagnostic results supporting the discharge/admit diagnosis, lab results, radiology results. Response to treatment: the patient's symptoms have mildly improved after treatment. 04/23 23:10 Order name: BNP; Complete Time: 00: 04/24 00:28 Interpretation: Abnormal: NT PRO-BNP 513. 04/23 23:10 Order name: Blood Culture Adult (2) 04/23 23:10 Order name: CBC with Diff; Complete Time: 00 04/24 00:28 Interpretation: Normal except: WBC 4.20; RBC 3.52; HGB 10.8; HCT 31.3; PLT 145; cp EOSINOPHIL % 13.6; EOSA 0.6. 04/23 23:10 Order name: CMP; Complete Time: 00: 04/24 00:28 Interpretation: Normal except: K 3.4; GLUC 118; GFR 76; AST 41; ALB 2.6; GLOB 4.6; A/G cp 0.6. 04/23 23:10 Order name: Lactate w/ 2H reflex if indic.; Complete Time: 00: 04/23 23:10 Order name: Protime (+inr); Complete Time: 00: 04/24 00:28 Interpretation: Reviewed. 04/23 23:10 Order name: Ptt, Activated; Complete Time: : 04/23 23:10 Order name: Troponin HS; Complete Time: 00: cp 04/23 23:10 Order name: CRP; Complete Time: 00: 04/24 00:29 Interpretation: Abnormal: C-REACTIVE PROT 25.20. 04/24 00:37 Order name: UA Rfx Dustin Cult if indicated cp 04/23 23:10 Order name: US Lower Extremity Arterial Bilateral cp 04/23 23:10 Order name: US Extremity Venous W Compression Grant cp 04/23 23:10 Order name: Chest Single View XRAY cp 04/23 23:10 Order name: Accucheck; Complete Time: 00:19 cp 04/23 23:10 Order name: Cardiac monitoring; Complete Time: 23:20 cp 04/23 23:10 Order name: EKG - Nurse/Tech; Complete Time: 23:20 cp 04/23 23:10 Order name: IV Saline Lock - Large Bore; Complete Time: 23:20 cp 04/23 23:10 Order name: Labs collected and sent; Complete Time: 23:20 cp 04/23 23:10 Order name: O2 Per Protocol; Complete Time: 23:20 cp 04/23 23:10 Order name: O2 Sat Monitoring; Complete Time: 23:20 cp 04/23 23:10 Order name: Vital Signs; Complete Time: 23:20 cp EC/25 23:10 Rate is 69 beats/min. Rhythm is regular. OH interval is normal. QRS interval is cp prolonged at 102 msec. QT interval is normal. T waves are Inverted in lead aVR. Interpreted by me. Reviewed by me. Administered Medications: 04/24 00:31 CANCELLED (Duplicate Order): piperacillin-tazobactam4.5 grams IVPB once over 60 mins; cp (mix in 100 mL NS) 01:03 Drug: vancoMYCIN IVPB 1.5 grams IVPB at calculated rate once Route: IVPB; Rate: kd3 calculated rate; Site: right antecubital; 01:03 Drug: Furosemide IVP 20 mg IVP once; give over 2 minutes Route: IVP; Site: right kd3 antecubital; 01:03 Drug: Aspirin PO Chewable Tablet 324 mg PO once; 81 mg tablets x 4 Route: PO; kd3 Disposition Summary: 04/24/25 00:47 Hospitalization Ordered Notes: Hospitalization Status: Inpatient Admission cp Provider: Prince shantelle Garcia Location: Telemetry/MedSurg (Inpatient) cp Condition: Stable cp Problem: new cp Symptoms: have improved cp Bed/Room Type: Standard Room Assignment: 229(04/24/25 02:35) cg Diagnosis - Chest pain, unspecified cp - Cellulitis of right lower limb cp Forms: - Medication Reconciliation Form cp - SBAR form cp - Leadership Thank You Letter cp Signatures: Dispatcher [employer] EDMS Raman Hawley PA-C PA-C cp Garcia, Cindy, RN RN Charla Petty, RN RN kd3 Corrections: (The following items were deleted from the chart) 04/23 23:10 23:10 Extrem Venous W Compression Grant+US.RAD.BRZ ordered. EDMS EDMS 23:10 23:10 PROBNP+C.LAB.BRZ ordered. EDMS EDMS 23:10 23:10 BLOOD CULTURE*+BA.LAB.BRZ ordered. EDMS EDMS 23:10 23:10 CBC+H.LAB.BRZ ordered. EDMS EDMS 23:10 23:10 COMPREHENSIVE METABOLIC PANEL+C.LAB.BRZ ordered. EDMS EDMS 23:10 23:10 LACTATE+C.LAB.BRZ ordered. EDMS EDMS 23:10 23:10 PROTIME (+INR)+COAG.LAB.BRZ ordered. EDMS EDMS 23:10 23:10 PTT, ACTIVATED+COAG.LAB.BRZ ordered. EDMS EDMS 23:10 23:10 Troponin High Sensitivity+C.LAB.BRZ ordered. EDMS EDMS 23:10 23:10 Chest Single View+RAD.RAD.BRZ ordered. EDMS EDMS 23:11 23:11 C-REACTIVE PROTEIN+C.LAB.BRZ ordered. EDMS EDMS 04/24 00:31 00:30 Piperacillin-Tazobactam IVPB 4.5 grams IVPB once over 60 mins; (mix in 100 mL NS) cp ordered. cp 02:35 00:47 cp cg
[2025-04-24] MEDS ORDERED: VANCOMYCIN 500 MG/VIAL ONE (00:48)
[2025-04-24] MEDS ORDERED: NA CHLORIDE 0.9% 250 ML ONE (00:48)
[2025-04-24] MEDS ORDERED: FUROSEMIDE 40 MG/4 ML VIAL ONE (00:48)
[2025-04-24] MEDS ORDERED: VANCOMYCIN 1 GM/VIAL ONE (00:49)
--- NOTE | 2025-04-24 01:20 | RAD REPORT ---
Clinical Indication: Bed Name: 19; Pain;Swelling Comparison: None TECHNIQUE: Bilateral lower extremity arterial Doppler evaluation without pressures was performed with bonner scale , color scale and Doppler waveforms evaluation. FINDINGS: RIGHT LOWER EXTREMITY: Common femoral artery: Biphasic waveform with mild spectral broadening Superficial femoral artery: Mid: Biphasic waveform with mild spectral broadening Popliteal artery: Monophasic waveform with spectral broadening Posterior tibial artery: Monophasic waveform with spectral broadening and slightly elevated velocity Dorsalis pedis: Monophasic waveform with spectral broadening and elevated velocity LEFT LOWER EXTREMITY: Common femoral artery: Biphasic waveform Superficial femoral artery: Mid: Biphasic waveform with spectral broadening Popliteal artery: Monophasic waveform with spectral broadening Posterior tibial artery: Monophasic waveform with spectral broadening and slightly elevated velocity Dorsalis pedis: Monophasic waveform with spectral broadening If there is further concern, recommend CTA or magnetic resonance angiography for evaluation. IMPRESSION: 1. No sonographic evidence of high-grade stenosis in either lower extremity. 2. Findings consistent with moderate atherosclerotic disease in the bilateral lower extremities. 3. Findings consistent with distal small vessel disease. Electronically signed by: Chilo Lim MD 04/24/2025 01:06 AM CDT Due to temporary technical issues with the PACS/[employer] reporting system, reports are being alise d by the in-house radiologist without review as a courtesy to ensure prompt reporting the interpreting radiologist is fully responsible for the content of the report. Transcribed Date/Time: 04/24/2025 1:20 AM
--- NOTE | 2025-04-24 01:20 | RAD REPORT ---
BILATERAL LOWER EXTREMITY VENOUS DOPPLER INDICATION: 54-year-old male with lower extremity pain and swelling. COMPARISON: No relevant imaging studies available. TECHNIQUE: Real-time compression sonography combined with color flow Doppler and spectral waveform an alysis was performed evaluating the lower extremity veins. FINDINGS: The bilateral common femoral veins, superficial femoral veins, proximal greater saphenous veins, and popliteal veins demonstrated normal compressibility. No intraluminal thrombus was identified. There was normal flow and augmentation. Visualized portions of the bilateral posterior tibial vein s demonstrate normal compressibility. IMPRESSION: NO EVIDENCE FOR LOWER EXTREMITY DEEP VEIN THROMBOSIS. Electronically signed by: Sameer Robledo MD 04/24/2025 01:00 AM CDT RP Due to temporary technical issues with the PACS/[employer] reporting system, reports are being alise d by the in-house radiologist without review as a courtesy to ensure prompt reporting the interpreting radiologist is fully responsible for the content of the report. Transcribed Date/Time: 04/24/2025 1:20 AM
--- NOTE | 2025-04-24 02:38 | P.HP ---
Certification for Inpatient Patient admitted to: Inpatient With expected LOS: >2 Midnights Patient will require the following post-hospital care: None Practitioner: I am a practitioner with admitting privileges, knowledge of patient current condition, hospital course, and medical plan of care. Services: Services provided to patient in accordance with Admission requirements found in Title 42 Section 412.3 of the Code of Federal Regulations Patient History Date of Service: 04/24/25 Reason for admission: Chest pain, bilateral lower extremities cellulitis, and edema both feet, History of Present Illness: Patient is a 54-year-old male with multiple past medical history including hepatitis C, liver cirrhosis, esophageal varices, portal hypertension, DVT of left leg, neuropathy, IgA deficiency, congenital heart murmur, septic shock, pneumonia, recurrent lower extremities rash, ESBL E. coli bacteremia requiring ICU admission, right lower extremity cellulitis 03/05/2025, bicuspid aortic valve with severe calcification, PVD. Patient presented to the ER today complaining of chest pain, and worsening bilateral lower extremities cellulitis with assoc iated edema both feet, rash, and pruritus. Patient states around 8 PM tonight he started having sharp pain left chest wall with initial pain scale of 8/10, radiating to his left jaw. Patient describes the chest pain as intermediate, denies having associated shortness of breath. Patient also states for the past couple of weeks, he has been having increased bilateral lower extremities edema secondary to cellulitis, states within the past couple of days, he has developed worsening erythema bilateral lower extremities with increasing pain. Patient states he have been hospitalized several times for the cellulitis of both legs. States he has burning pain on both legs, and pruritus. Upon admission assessment, patient have profound bilateral lower extremities cellulitis, and pitting edema 2+ both feet, lungs clear bilateral with no adventitious breath sounds, states his chest pain is relieved at this time. Patient states he currently seeing a liver specialist and a vibrating screen operator in [facility]. Allergies sulfamethoxazole [From Bactrim] Allergy (Severe, Verified 03/05/25 23:52) Hives/Rash trimethoprim [From Bactrim] Allergy (Severe, Verified 03/05/25 23:52) Hives/Rash cephalexin monohydrate [From Keflex] Allergy (Intermediate, Verified 03/05/25 23:52) Rash spironolactone Allergy (Intermediate, Verified 03/05/25 23:52) SWELLING tramadol Allergy (Intermediate, Verified 03/05/25 23:52) Rash Tramadol HCl Allergy (Uncoded 05/18/15 02:23) Unknown Home Medications: Furosemide 80 mg PO BID 10/24/23 Lactulose 30 gm PO DAILY 10/24/23 Apixaban [Eliquis *] 2.5 mg PO BID 01/15/25 Propranolol [Inderal*] 40 mg PO BID #60 tab 01/15/25 Hydrocortisone Cream [Hydrocortisone 1% Cream*] 1 appl TOP TID PRN #1 tube 03/07/25 Eplerenone 50 mg PO DAILY 04/24/25 Potassium Chloride 2 cap PO BID 04/24/25 - Past Medical/Surgical History Diabetic: No -: Hepatitis C -: Cirrhosis -: Esophageal varices -: Portal hypertension -: DVT of the left lower extremity -: Neuropathy -: Cellulitis -: IgA deficient -: Congenital heart murmur -: Patient has had endoscopy for esophageal varices -: Back surgery 2014 - Family History Mother -: Heart disease, Hypertension Notes: Patient with combined variable immunodeficiency. Patient with atherosclerotic disease - Social History Smoking Status: Former smoker Alcohol use: No CD- Drugs: No Caffeine use: No Place of Residence: Home Review of Systems 10-point ROS is otherwise unremarkable Cardiovascular: Chest Pain Integumentary: Rash (Bilateral lower extremities and pruritus.), Other Physical Examination - Physical Exam General: Alert, In no apparent distress, Oriented x3, Cooperative HEENT: Atraumatic, Normocephalic, PERRLA, Mucous membr. moist/pink, Sclerae nonicteric Neck: Supple, 2+ carotid pulse no bruit, No LAD, Without JVD or thyroid abnormality Respiratory: Clear to auscultation bilaterally, Normal air movement Cardiovascular: Normal pulses, Regular rate/rhythm, Normal S1 S2, No gallops, No rubs, Edema (Both feet.), Systolic murmur Capillary refill: <2 Seconds Gastrointestinal: Normal bowel sounds, Soft and benign, No tenderness, No masses, No rebound, No guarding, Hepatomegaly (Secondary to cirrhosis) Musculoskeletal: No clubbing, No contractures, No erythema, Swelling (Both feet.), Tenderness (Tenderness on both lower extremities.), Warmth (Bilateral lower extremities secondary to cellulitis.) Integumentary: No breakdown, No significant lesion, No cyanosis, Rash(es) (Bilateral lower extremities.), Tenderness/swelling (Bilateral lower extremities.), Erythema (Bilateral lower extremities secondary to cellulitis.), Warmth (Bilateral lower extremities) Neurological: Normal gait, Normal speech, Normal strength at 5/5 x4 extr, Normal tone, Sensation intact, Cranial nerves 3-12 intact, Normal reflexes 2+, Normal affect Lymphatics: No axilla or inguinal lymphadenopathy - Studies Laboratory Data (last 24 hrs) 04/23/25 04/23/25 04/23/25 23:17 23:17 23:17 WBC 4.20 L Hgb 10.8 L Hct 31.3 L Plt Count 145 L PT 14.7 H INR 1.31 APTT 38.7 H Sodium 139 Potassium 3.4 L BUN 15 Creatinine 1.14 Glucose 118 H Total Bilirubin 0.9 AST 41 H ALT 34 Alkaline Phosphatase 94 Male Exam - Male Exam Inguinal exam: No hernias Assessment and Plan - Plan Patient is a 54-year-old male admitted to inpatient with diagnosis of chest pain, bilateral lower extremity cellulitis, and edema both feet. (1)Bilateral lower extremities cellulitis/and pitting edema both feet/pruritus.. -Order albumin 50 g/20 mL x 1 dose. Patient appears to be third spacing, albumin 2.6. -Vancomycin 1.25 g daily. -Ancef 2 g IV every 8 hours. -Morphine 4 mg IV as needed every 4 hours. -Benadryl IV 25 mg as needed every 6 hours pruritus. - Lasix 40 mg IV daily. 2+ pitting edema both feet. Is unclear if patient has some underlying history of CHF, or new onset, BNP 513.. Patient states he does not have any history of CHF that he is aware of. Will proceed with echo as noted below. (2)Chest Pain. -Morphine 4 mg IV as needed every 4 hours. -Troponin every 8 as x 3. -EKG every 8 hours x 3. -Order echocardiogram. -Consult vibrating screen operator. -Telemetry. (3) DVT prophylaxis. -Lovenox 40 mg subcu daily. (4) Home medications to be resumed when reconciled. (5) Explained the entire treatment plan to the patient, solicited questions answered and voiced understanding. Discharge Plan: Home Plan to discharge in: Greater than 2 days - Advance Directives Does patient have a Living Will: No Does patient have a Durable POA for Healthcare: No - Code Status/Comfort Care Code Status Assessed: Yes Code Status: Full Code Critical Care: No Time Spent Managing Pts Care (In Minutes): 55
[2025-04-24] MEDS ORDERED: NITROGLYCERIN 0.4 MG/TAB SL PRN (02:39)
[2025-04-24 02:43] LABS: Urine Microscopic Reflex YN NO UMIC
[2025-04-24] MEDS: ALBUMIN HUMAN 25% 200 ML IV ONE (02:46)
[2025-04-24] MEDS ORDERED: DIPHENHYDRAMINE 50 MG/ML VIAL ONE (02:48)
[2025-04-24] MEDS ORDERED: MORPHINE 4 MG/ML SYR ONE (02:48)
[2025-04-24] MEDS: MORPHINE 4 MG/ML SYR IV PRN (02:53)
[2025-04-24] MEDS: DIPHENHYDRAMINE 50 MG/ML VIAL IV PRN (02:53)
[2025-04-24] MEDS: VANCOMYCIN 500 MG in NA CHLORIDE 0.9% 100 ML IVPB ONE (05:57)
--- NOTE | 2025-04-24 06:15 | RAD REPORT ---
EXAM DESCRIPTION: Chest Single View [facility]Lex: XR CHEST 1 VIEW CLINICAL HISTORY: 54 years Male, edema COMPARISON: None. FINDINGS: Single portable AP upright view of the chest. Normal size of the cardiac silhouette. No consolidation . No pleural effusion or pneumothorax. No acute osseous abnormality. IMPRESSION: No acute radiographic abnormality. Electronically signed by: Lor Lynne MD 04/24/2025 12:51 AM CDT RP Due to temporary technical issues with the PACS/[employer] reporting system, reports are being alise d by the in-house radiologist without review as a courtesy to ensure prompt reporting the interpreting radiologist is fully responsible for the content of the report. Transcribed Date/Time: 04/24/2025 6:15 AM
[2025-04-24] MEDS ORDERED: HYDROCORTISONE 1 % CREAM 30GM TOP PRN (07:17)
[2025-04-24] MEDS: CEFAZOLIN SODIUM 2 GM in NA CHLORIDE 0.9% 100 ML IVPB SCH (09:00)
[2025-04-24] MEDS: APIXABAN 2.5 MG TABLET PO SCH (09:00)
[2025-04-24] MEDS: PROPRANOLOL HCL 40 MG TAB PO SCH (09:00)
[2025-04-24] MEDS: LACTULOSE 20 GM/30 ML UCUP PO SCH (09:00)
[2025-04-24] MEDS ORDERED: ENOXAPARIN 40 MG/0.4 ML SQ SCH (09:00)
[2025-04-24] MEDS: FUROSEMIDE 40 MG/4 ML VIAL IV SCH (09:00)
[2025-04-24] MEDS: EPLERENONE 50 MG PO SCH (09:00)
[2025-04-24] MEDS ORDERED: VANCOMYCIN 1.25 GM in NA CHLORIDE 0.9% 250 ML IVPB SCH (09:00)
[2025-04-24] MEDS: VANCOMYCIN 2 GM in NA CHLORIDE 0.9% 500 ML IVPB SCH (13:00)
--- NOTE | 2025-04-24 19:58 | CON ---
Date of Consultation: 04/24/2025 Reason For Consultation: Chest pain. History Of Present Illness: This is a 54-year-old male who was admitted with past medical history th at is complex including hepatitis C, liver cirrhosis, DVT, neuropathy, presented with lower extremity cellulitis, started on IV antibiotics. Troponin was checked and it was normal, but I was consulted due to the chest pain. I saw him by bedside. He said his chest pain was split of a second, sharp, w ent through his neck to the chest, and went away and never came back. No chest pain now. Past Medical History: As outlined above in the HPI. Medications: Refer to reconciliation sheet for detailed list. Allergies: SULFA, BACTRIM, CEPHALEXIN. Family History: No premature coronary artery disease or cancer. Social History: Does not use any drugs. Former smoker and he does not drink. Review of Systems: All systems reviewed, they are negative except as mentioned in HPI. Physical Examination: Vital Signs: Reviewed. Head and Neck: Pupils are equal, reactive to light. Intact eye movements. No JVD. No cervical lym phadenopathy. Neck is supple. Thyroid is not enlarged. Lungs: Clear to auscultation bilaterally. No rhonchi, wheezing, or crackles. No accessory muscle u se. Heart: Regular rate and rhythm. No extra sounds. Abdomen: Soft, nontender. Bowel sounds positive. No organomegaly. No masses or hernia. No rigidi ty or rebound. Extremities: No edema, clubbing, or cyanosis. Intact pulses. Skin: No rash. No nodules. Neurologic: Alert, awake, oriented x3. No acute focal deficits appreciated. Investigations: Labs were reviewed. BUN 15, creatinine 1.1. Troponin x3 are negative and hemoglobi n is 10.8. Assessment/recommendation: Chest pain, very typical, short-lived, sharp, split seconds. Normal trop onin. This is muscular and no further cardiac workup is recommended during this hospital stay. If t he patient continues to have chest pains in the future and to follow up with primary youth support worker to do a stress test, at this point I do not see any cardiac issue and Cardiology will sign off. Thank you for the consult. /CHAYA Voice ID: [id number] Report ID: [id number]
[2025-04-24 20:31] LABS: Anion Gap 8.4 mEq/L (5.0-15.0); BUN Blood Urea Nitrogen 14.0 mg/dL (7-18); Glucose Level 168.0 mg/dL (74-106); Magnesium 2.1 mg/dL (1.6-2.4); Potassium 3.4 mEq/L (3.5-5.1)
[2025-04-25 06:13] VITALS: BMI 47.0
[2025-04-25 06:27] LABS: Absolute Lymphocytes (CBC) 0.7 K/uL (0.7-4.9); Hematocrit 34.0 % (39.6-49.0); Hemoglobin 11.9 g/dL (13.6-17.9); MCH 31.1 pg (27.0-35.0); MCHC 34.9 g/dL (32.0-36.0); MCV 89.0 fL (80-100); MPV 8.1 fL (7.6-11.3); Nucleated RBC Absolute Count 0.0 (0-0); Nucleated Red Blood Cells % 0.2 % (0-0); RBC Red Blood Cell Count 3.82 M/uL (4.33-5.43); White Blood Count 3.70 thou/uL (4.3-10.9)
[2025-04-25 06:29] LABS: Anion Gap 5.1 mEq/L (5.0-15.0); BUN Blood Urea Nitrogen 15.0 mg/dL (7-18); Glucose Level 103.0 mg/dL (74-106); Potassium 4.1 mEq/L (3.5-5.1)
[2025-04-25 09:17] VITALS: O2SAT 98
--- NOTE | 2025-04-25 11:41 | P.DS ---
Admission Date: 04/24/25 Discharge Date: 04/25/25 Disposition: ROUTINE DISCHARGE Discharge Condition: GOOD Reason for Admission: Chest pain, bilateral lower extremities cellulitis, and edema both feet, Hospital Course: Patient was admitted for lower extremity cellulitis. Received empiric antibiotics with vancomycin and levofloxacin, and IV diuresis. He has responded to the above regimen. His edema has significantly improved. He can be discharged. Vital Signs/Physical Exam: Temp Pulse Resp BP Pulse Ox 97.9 F 65 12 147/84 H 98 04/25/25 08:00 04/25/25 08:00 04/25/25 08:00 04/25/25 08:00 04/25/25 08:00 General: In no apparent distress, Cooperative, Obese (Morbidly obese) HEENT: Atraumatic, Normocephalic Respiratory: Normal air movement Cardiovascular: No edema, Normal pulses, Regular rate/rhythm, Normal S1 S2, Systolic murmur Neurological: Normal speech Laboratory Data at Discharge: WBC 3.70 thou/uL (4.3-10.9) L 04/25/25 05:55 Hgb 11.9 g/dL (13.6-17.9) L 04/25/25 05:55 Hct 34.0 % (39.6-49.0) L 04/25/25 05:55 Plt Count 103 thou/uL (152-406) L 04/25/25 05:55 PT 14.7 SECONDS (10-13.0) H 04/23/25 23:17 INR 1.31 04/23/25 23:17 APTT 38.7 SECONDS (27.2-37.4) H 04/23/25 23:17 Sodium 140 mEq/L (136-145) 04/25/25 05:58 Potassium 4.1 mEq/L (3.5-5.1) D 04/25/25 05:58 BUN 15 mg/dL (7-18) 04/25/25 05:58 Creatinine 1.03 mg/dL (0.70-1.30) 04/25/25 05:58 Glucose 103 mg/dL (74-106) 04/25/25 05:58 Phosphorus 3.4 mg/dL (2.5-4.9) 04/24/25 19:32 Magnesium 2.1 mg/dL (1.6-2.4) 04/24/25 19:32 Total Bilirubin 0.9 mg/dL (0.2-1.0) 04/23/25 23:17 AST 41 U/L (15-37) H 04/23/25 23:17 ALT 34 U/L (16-61) 04/23/25 23:17 Alkaline Phosphatase 94 U/L (45-117) 04/23/25 23:17 Home Medications: RX: Furosemide 80 mg PO BID 10/24/23 RX: Lactulose 30 gm PO DAILY 10/24/23 RX: Apixaban [Eliquis *] 2.5 mg PO BID 01/15/25 RX: Propranolol [Inderal*] 40 mg PO BID #60 tab 01/15/25 RX: Hydrocortisone Cream [Hydrocortisone 1% Cream*] 1 appl TOP TID PRN #1 tube 03/07/25 RX: Eplerenone 50 mg PO DAILY 04/24/25 RX: Potassium Chloride 2 cap PO BID 04/24/25 RX: Clindamycin HCl 450 mg PO TID #45 cap 04/25/25 New Medications: RX: Clindamycin HCl 450 mg PO TID #45 cap Followup: MAHENDRA BELLO [Primary Care Provider] - 1-2 Weeks
[2025-04-25 11:50] VITALS: BP 130/63; TEMP 97.7
== END 2025-04-25 13:57 | disposition home or self-care (01) | DRG 603 ==
LOC: ER 22:35 → 2ND 04-24 02:27
PROVIDERS: ADMIT Internal Medicine; ATTEND Internal Medicine
DX: L03.115 Cellulitis of right lower limb (principal); Z68.42 Body mass index [BMI] 45.0-49.9, adult; E66.01 Morbid (severe) obesity due to excess calories; L29.9 Pruritus, unspecified; I73.9 Peripheral vascular disease, unspecified; R07.89 Other chest pain; Z88.5 Allergy status to narcotic agent; Z88.1 Allergy status to other antibiotic agents; Z86.718 Personal history of other venous thrombosis and embolism; Z79.01 Long term (current) use of anticoagulants; Z79.899 Other long term (current) drug therapy; Z87.891 Personal history of nicotine dependence
CPT/HCPCS: 36415; 71045; 80048; 80053; 81003; 83605; 83735; 83880; 84100; 84484; 85025; 85610; 85730; 86140; 87040; 93005; 93925; 93970; 96374; 96375; 97161; 97165; 99285; J1200; J1938; J3373; J7040; J7050